=== PATIENT | male | born 1995 | race American Indian/Alaskan Native ===

== ENCOUNTER 2017-05-22 17:28 | Inpatient (IN) | payer OTHER ==
[~2017-05-22] VITALS: Ht 167.6 cm; Wt 65.3 kg
[~2017-05-22 17:28] MED LIST: ALBUTEROL SULF8.5 GM INH; ALBUTEROL2.5 MG/3 M INH; ALLEGRA ALLERG180 MG PO; ASMANEX220 MC1 IH; BACTRIM DS TAB1 EACH PO; BENADRYL25 MG PO; CALAMINE SUSPE177 ML TOP; CEPHALEXIN500 MG PO; DULERA 100 MCG/13 GM; DULERA 200 MCG/13 GM INH; FORADIL1 INHALATI INH; IBUPROFEN600 MG PO; IPRAT-ALBUT 0.5-3 ML INH; NICORETTE2 MG MM; NICOTINE PATCH1 EACH TD; NORCO 5-325 TA1 EACH PO; OMEPRAZOLE20 MG PO; PREDNISONE10 MG PO; PREDNISONE20 MG PO; PREDNISONE5 M1 PO; PRILOSEC20 MG PO; PROAIR HFA8.5 GM INH; PROVENTIL HFA6.7 GM INH; VENTOLIN5 MG/1 ML; ZIRGAN5 GM OPTH
--- NOTE | 2017-05-22 20:40 | NUR ---
PATIENT ARRIVES TO CCU AT 2039 ON ER STRETCHER. PT HAS LONG EXP PHASE, NOTED TO BE AROUND 3 SEC. PT ABLE TO MOVE SELF OVER TO BED. HEART RATE 80s, SINUS. BP 127/71 (84). SP02 95% ON ROOM AIR. PT STATES HE HAS BEEN SICK FOR A FEW DAYS. PATIENT ABLE TO HAVE SMALL CONVERSATION AND STATES MOSTLY "I'M JUST TIRED." PATIENT LETHARGIC AND NOT VERY INTERACTIVE. CONTINUE BRUNA ONITOR CLOSELY.
--- NOTE | 2017-05-22 21:43 | NUR ---
PATIENT HAS ATE A WHOLE SANDWICH BOX AND REQUESTING ANOTHER. PT ABLE TO TAKE ORAL MEDS WITHOUT DIFFICULTY. 2 GM IV MAG STARTED ON PATIENT. PT REC'D 1 L BOLUS OF NS. PT HAS VOIDED ONCE IN ER FOR 175 ML. PT IS 98% ON ROOM AIR. RR RANGING FROM 22-25 AT THIS TIME. PT TO WEAR BIPAP IS RR REMAINS IN HIGH 20s TO LOW 30s. EXP PHASE APPRO 2.5-3 SECONDS. EXP AND INSP WHEEZING HEARD THROUGHOUT. PT STATES HE IS VERY TIRED. PT NOW RECEIVING NS WITH 40 KCL AT 200 ML/HR FOR 1 L AT 200 ML/HR. PT'S NGUYEN LOCKED IN SAFE IN SECURITY ENVELOPE. CONTINUE TO MONITOR CLOSELY. CALL LIGHT WITHIN REACH.
--- NOTE | 2017-05-22 23:00 | NUR ---
PATIENT AWOKEN AT THIS TIME AND EVALUTED. PT NOTED TO HAVE RF 19-22 WITH A LONG EXP PHASE STILL. INSP AND EXP WHEEZES NOTED STILL. PATIENT AWAKENS AND REQUESTS A BREATHING TREATMENT. RT CALLED AND UPDATED AND WILL COME SEE PATIENT AND ADMINISTER BREATHING TREATMENT.
--- NOTE | 2017-05-23 01:30 | NUR ---
PATIENT AWOKEN TO TAKE POTASSIUM PILLS AT THIS TIME. PT STATES HE IS DOING WELL AND DENIES THE NEED FOR BREATHING TREATMENT AT THIS TIME. SP02 IS 97% ON ROOM AIR CURRENTLY. PT HAS ONLY VOIDED ONE TIME SINCE BEING ADMITTED TO THE CCU. IVF ARE INFUSING AT 75 ML/HR. CONTINUE TO MONITOR.
--- NOTE | 2017-05-23 03:19 | NUR ---
PATIENT NOTED TO BE ALARMING FOR TACH[place]A ON MONITOR, WITH RR AROUND 29-30. PT ASSESSSED AND NOTED TO BREATHING AROUND 25 BREATHS/MINUTE. PT AWOKEN AND ASKED IF HE FEELS LIKE HE NEEDS A BREATHING TREATMENT, TO WHICH HE RESPONDS YES. RT CALLED. LUNG SOUNDS REVEAL EXP WHEEZING AND INSP WHEEZING. RT IN ROOM AT THIS TIME NOW.
--- NOTE | 2017-05-23 05:55 | NUR ---
PATIENT USES CALL LIGHT AND REQUESTING ANOTHER SANDWICH BOX. PATIENT GIVEN CHOCOLATE PUDDING AT THIS TIME AND WAITING FOR SANDWICH FROM KITCHEN. PT NOW UP TO VOID IN URINAL. HEART RATE NOTED TO ELEVATE TO 110s WHILE UP. LAST BP 137/75 (87). PT HAS REMAINED ON ROOM AIR THROUGH THE NIGHT. CONTINUE TO MONITOR.
--- NOTE | 2017-05-23 07:44 | NUR ---
PT UP AMBULATING TO BATHROOM INDEPENDENTLY. PT ABLE TO HAVE LARGE BM, THEN BACK TO BED. LINENS CHANGED ON BED DUE TO FOOD CRUMBS. PT DENIES PAIN AND NAUSEA. PT C/O DIFFICULTY BREATHING STILL [employer]HOUGH HE JUST RECIEVED A NEB TREATMENT FROM [facility]. PT O2 SATS ARE 98% ON ROOM AIR. PT STATES "I FEEL SO MUCH BETTER THAN I DID LAST NIGHT, I THOUGHT I WAS GOING TO ".
--- NOTE | 2017-05-23 08:01 | NUR ---
PT BREAKFAST HAS ARRIVED. PT REQUESTING AN ADDITIONAL SODA AND A CUP OF COFFEE.
--- NOTE | 2017-05-23 09:32 | NUR ---
IN ROOM TO ASSESS PT. PT MOSTLY DROWSY AND NOT VERY COMMUNICATIVE, PT STATES "I'M JUST TIRED, I WANT TO SLEEP".
--- NOTE | 2017-05-23 09:45 | NUR ---
FLU VACCINATION GIVEN TO PT IN UPPER RT ARM. PT MARTHA WELL.
--- NOTE | 2017-05-23 10:30 | NUR ---
FULL REPORT GIVEN TO TIMOTHY GAMBLE, PT TO BE TRANSFERED TO ROOM 116 ON MED/SURG.
--- NOTE | 2017-05-23 11:21 | NUR ---
PT TRANSFERED FROM CCU IN BED. PT IS VERY DROWSY, BUT WILL WAKE TO VOICE AND TOUCH. PT STATED HE HAS NO PAIN AT THIS TIME, BUT IS "SO TIRED". WHEEZES IN ALL LOBES ON INHALATION AND EXPIRATION. PT COLORING IS NORMAL FOR SKINTONE, ON ROOM AIR, O2 SATS >95%. PT IS HOMELESS, STATES HE HAS A HARD TIME GETTING FOOD. ENCOURAGED HIM TO CALL DOWN AND ORDER LUNCH. HAS SNACKS AT BEDSIDE. BELONGINGS IN BAGS ON COUCH. SEVERE EXCEMA ALL OVER BODY. DISCUSSED PLAN OF CARE, SHOWER AFTER LUNCH AND THEN APPLY CREAM. PT IN AGREEMENT, COORDINATED WITH EMAIL CAMPAIGN SPECIALIST.
--- NOTE | 2017-05-23 15:02 | NUR ---
APPLICATION SECURITY ENGINEER REPORTED THAT PT BECAME SHORT OF BREATH WHEN WALKING TO THE BATHROOM. PT WAS ASSISTED TO A SAFE POSITION. RN CALLED RT FOR PRN NEB TREATMENT. PT WAS RETURNED TO BED, O2 ADMINISTERED AT 2L PER NC. RT ADMINSTERED PRN NEB TREATMENT. PT REPORTS STARTING TO FEEL BETTER.
--- NOTE | 2017-05-23 16:07 | NUR ---
PT WAS HAVING A HARD TIME BREATHING TOLD NURSE AGUIRRE. TOOK PT TO THE BATHROOM. THEN HE SAID HE NEEDED A BREATHING TREATMENT. HE SAID HE COULD NOT CATCH HIS BREATH. NURSE BAENA WAS IN THE MED ROOM ACROSS THE FERRO SO I ASKED HER TO COME TAKE A LOOK AT HIM. SHE THEN CALLED RESP[facility] THEY DID NOT ANSWER SO SHE WENT AND GOT PT A BREATHING TREATMENT. IS NOW RESTING IN BED
--- NOTE | 2017-05-23 17:38 | NUR ---
pt stated he wanted to keep his tray in his room. emptyed trach fresh ice water
--- NOTE | 2017-05-23 18:26 | NUR ---
PT TRANSFERED TO FLOOR FROM CCU. PT HAS BEEN VERY SLEEPY, BUT WAKES TO VOICE AND TOUCH. PT PREFERS TO HAVE FOOD LEFT AT BEDSIDE AND GRAZE ON IT OFTEN. PT IS HOMELESS AND STATES HE HAS DIFFICULTY OBTAINING FOOD, EATS WELL IN HOSPITAL. SOB ON EXERTION. PRN NEB X1, SCHEDULED NEBS Q4HR. INSPIRTORY AND EXPIRTORY WHEEZES. NO IV FLUIDS, IV SL. IV FLUSHES, BUT IS DIFFICULT.
--- NOTE | 2017-05-23 19:18 | NUR ---
RECIEVED REPORT FROM DAY SHIFT NURSE. PATIENT SLEEPING IN BED. CALL LIGHT IN REACH.
--- NOTE | 2017-05-23 21:32 | NUR ---
PT RESTING IN BED. VERY DROWSY BUT EASILY AROUSABLE. LOTION APPLIED TO FACE AND BACK. NASAL CANNULA IN PLACE. IV FELL OUT. JOSUE RN INSERTING IV AT THIS TIME. PT DENIES SOB. NO WHEEZES HEARD. PT DENIES NEEDS.
--- NOTE | 2017-05-23 21:53 | NUR ---
NEW IV STARTED. PATIENT TOLERATED WELL. PATIENT UP TO BEDSIDE TO USE URNAL. APPEARS STEADY ON HIS FEET. HE DENIES SOB. HE REQUESTED A SNACK PACK, FLOAT SLIP INJECTOR AND APPLICATOR CONTACTED TO RECIEVE ONE. PATIENT DENIES FURTHER NEEDS. 2L NC IN PLACE. CALL LIGHT IN REACH.
--- NOTE | 2017-05-23 22:25 | NUR ---
PATIENT SLEEPING. CALL LIGHT IN REACH. NC IN PLACE.
--- NOTE | 2017-05-23 23:49 | NUR ---
PT REQUESTS FOR BRIANNA TX. CALLED RT TO ADMINISTER. PT STATES HE FEELS SOB FROM SITTING UP IN BED TO USE THE URINAL. AUDIBLE WHEEZES HEARD. O2 AT 97% ON 2L OXYGEN VIA NC. PT DENIES FURTHER NEEDS. CALL LIGHT IN REACH.
--- NOTE | 2017-05-24 00:57 | NUR ---
PT SLEEPING IN BED. NASAL CANNULA IN PLACE. CALL LIGHT IN REACH.
--- NOTE | 2017-05-24 02:36 | NUR ---
PATIENT SLEEPING. NC IN PLACE, CALL LIGHT IN REACH.
--- NOTE | 2017-05-24 04:30 | NUR ---
PT SLEEPING. O2 IN PLACE, CALL LIGHT IN REACH.
--- NOTE | 2017-05-24 05:45 | NUR ---
PT RESTING IN BED. VOIDED WITH URINAL. 94% W/O O2. INSPIRATORY AND EXPIRATORY WHEEZES HEARD THROUGHOUT LUNG ISIDRO. CALLED RT TO ADMINISTER NEB TX. PT DENIES FURTHER NEEDS. SNACK DELIVERED.
--- NOTE | 2017-05-24 06:51 | NUR ---
PATIENT SLEEPING. RR 20. CALL ARTHUR IN REACH.
--- NOTE | 2017-05-24 07:30 | NUR ---
RECIEVED BEDSIDE REPORT FROM MAVIS REYES. PT SLEEPING, BREATHING EVEN AND UNLABORED. PT APPEARS COMFORTABLE. FOOD AT BEDSIDE. NO O2 AT THIS TIME. NO IV FLUIDS.
--- NOTE | 2017-05-24 08:13 | NUR ---
PT MORE AWAKE THIS MORNING. AGREES TO A SHOWER AFTER BREAKFAST. PT UP VOIDING INDEPENDENTLY. PT EATING WELL. REPORTS NO PAIN AT THIS TIME.
--- NOTE | 2017-05-24 08:52 | NUR ---
PLACED PT ON 4L O2 WHILE IN SHOWER. DECREASED TO 2L POST SHOWER WHILE SLEEPING. PT REQUESTED PRN NEB TREATMENT. PRE TREATMENT PT HAD WHEEZES THROUGHOUT, RR 24.
--- NOTE | 2017-05-24 10:53 | NUR ---
PT SLEEPING SOUNDLY, BREATHING EVEN AND UNLABORED. RR 20.
--- NOTE | 2017-05-24 14:53 | NUR ---
PT REPORTED TO SURVEY CAD TECHNICIAN THAT HE FELT LIKE THROWING UP. RN WENT TO CHECK ON HIM, HE HAD 100ML OF EMISIS. PT STATED THAT IT FELT LIKE TOO MUCH COLA AND HE FELT A LITTLE BETTER AFTER VOMITING. STILL REQUESTED ZOFRAN. PT REQUESTED NEB TREATMENT, ADVISED RT.
--- NOTE | 2017-05-24 16:03 | NUR ---
PATIENT GOT HIS SHOWER THIS MORNING HE NEEDED HELP. WASHED HIS HAIR ALSO. GOT HIM A COUPLE OF WARM BLANKETS. COUPLE OF SODAS. HE SAID THANK YOU.
--- NOTE | 2017-05-24 18:48 | NUR ---
PT MORE AWAKE THIS SHIFT. UP TO SHOWER WITH ASSIST, CREAM APPLIED. PT NEEDED SEVERAL PRN BREATHING TREATMENTS. SCHEDULED BREATHING TREATMENTS. PT HAD EMISIS X1 D/T TOO MUCH COLA. PRN ZOFRAN EFFECTIVE. VOIDING WELL. IV SL. PT IS HOMELESS, HOARDS FOOD. MED CHANGES.
--- NOTE | 2017-05-24 19:43 | NUR ---
RECIEVED REPORT FROM DAY SHIFT NURSE. PATIENT RESTING IN BED. USED URINAL AT BEDSIDE. VOIDING CLEAR/YELLOW URINE. MEAL TRAY AT BEDSIDE. PATIENT DENIES NEEDS. CALL LIGHT IN REACH.
[2017-05-24] MEDS ORDERED: NICORETTE4 M2 BUCCAL (20:20)
[2017-05-24] MEDS ORDERED: PREDNISONE20 MG PO (20:20)
[2017-05-24] MEDS ORDERED: SYMBICORT 16010.2 GM INH (20:20)
[2017-05-24] MEDS ORDERED: ALBUTEROL2.5 MG/3 M INH (20:20)
--- NOTE | 2017-05-24 20:48 | NUR ---
PATIENT RESTING WITH EYES CLOSED IN BED. PATIENT IS ON ROOM AIR. NO RESPIRATORY DISTRESS NOTED. EXPIRATORY WHEEZES THROUGHOUT LUNG ISIDRO. HR REGULAR. BS ACTIVE. NO C/O PAIN OR NAUSEA. REMOVED MEAL TRAY. LOVENOX REFUSED. DENIES NEEDS. CALL LIGHT IN REACH.
--- NOTE | 2017-05-24 22:30 | NUR ---
PATIENT SLEEPING. CALLED ES TO CLEAN FLOOR IN ROOM. CALL LIGHT IN REACH.
--- NOTE | 2017-05-25 00:32 | NUR ---
PATIENT SLEEPING AT THIS TIME. EMPTIED URINAL. REFILLED WATER PITCHER. CALL LIGHT IN REACH.
--- NOTE | 2017-05-25 01:52 | NUR ---
PATIENT USES URINAL.
--- NOTE | 2017-05-25 02:30 | NUR ---
PATIENT RESTING IN BED. HE ASKED ME TO "SHUSH." INSPIRATORY AND EXPIRATORY WHEEZES HEARD THROUGHOUT LUNG ISIDRO. PT DENIES NEED FOR NEB TX. CALL LIGHT IN REACH.
--- NOTE | 2017-05-25 04:18 | NUR ---
PATIENT RESTING WITH EYES CLOSED IN BED. EMPTIED URINAL. PATIENT REFUSED SCHEDULED NEB TX AGAIN. DENIES NEEDS. CALL ARTHUR IN REACH.
--- NOTE | 2017-05-25 05:50 | NUR ---
PATIENT SLEPT ALL NIGHT. HE HAS BEEN REFUSING NEB TX. VOIDING WELL. VS STABLE. D/C TODAY.
--- NOTE | 2017-05-25 09:56 | NUR ---
PT UP AMBULATING HALLS ALL MORNING. TOOK AM MEDS SCHEDULED. PT REPORTS EXCITEMENT TO GO HOME. DANCING IN ROOM. PT TAKEN OUT TO LOBBY TO WAIT FOR TAXI BY YOJANA REDD. WILL RETREIVE LOCK BOXED ITEMS BEFORE LEAVING HOSPITAL. TAXI CARE RIDE HOME.
--- NOTE | 2017-05-25 11:44 | NUR ---
PT WALKING IN HALLS-ALMOST RUNNING. SAID HE WAS FEELING SO MUCH BETTER, IS TO BE DC'D LATER THIS MORNING. EXTENDED A BLESSING-HE THANKED ME AND SHOOK MY HAND.
== END 2017-05-25 09:55 | disposition home or self-care (01) | DRG 203 ==
LOC: ED 17:28 → CCU 20:06 → MS 05-23 10:55
PROVIDERS: ADMIT Internal Medicine
DX: J45.51 Severe persistent asthma with (acute) exacerbation (principal); Z59.0 Homelessness; Z91.19 Patient's noncompliance with other medical treatment and regimen; F15.11 Other stimulant abuse, in remission; L20.9 Atopic dermatitis, unspecified
CPT/HCPCS: 36600; 71010; 80053; 82803; 83735; 85025; 90674; 94640; 94644; 94660; 94760; 96361; 96374; 99285; 99407; G0008; J1650; J2405; J2930; J3475; J7030; J7120; J7512

== ENCOUNTER 2017-10-24 11:34 | Inpatient (IN) | payer OTHER ==
[~2017-10-24] VITALS: Ht 167.6 cm; Wt 67.6 kg
[~2017-10-24 11:34] MED LIST changes: +NICORETTE4 M2 BUCCAL; +SYMBICORT 16010.2 GM INH
--- OUTSIDE RECORDS SUMMARY | 2017-10-24 14:12 | XMS | Clinical Summary ---
Demographics + + + | Address | [address] | | | [place] [address] | + + + | Home Phone | | + + + | Preferred Language | Unknown | + + + | Marital Status | Single | + + + | Taoist Affiliation | NON | + + + | Race | or | + + + | Ethnic Group | Not or | + + + Author + + + | Author | [facility] | + + + | Organization | [facility] | + + + | Address | Unknown | + + + | Phone | Unavailable | + + + Support + + +---------+ + | Name | Relationship | Address | Phone | + + +---------+ + | Wilmer Stanley | [place] | [place] | | | | | Unknown | | + + +---------+ + Care Team Providers + +------+ + | Care Enterprise Application Architect Name | Role | Phone | + +------+ + | Patsy Moore ANESTHESIOLOGY FELLOW | PP | Unavailable | + +------+ + Source Comments MARC is fully live on both [facility] Amb[facility] and [facility] InPatient.[facility] Allergies No Known Allergies Current Medications + + + +---------+------+------+-------+ | Prescription | Sig. | Disp. | Refills | Star | End | Statu | | | | | | t | Date | s | | | | | | Date | | | + + + +---------+------+------+-------+ | hydrOXYzine | Take 1 Cap by mouth | 40 Cap | 1 | 03/2 | | Activ | | pamoate 50 mg Oral | every eight hours as | | | 1/20 | | e | | Capsule | needed for itching. | | | 10 | | | + + + +---------+------+------+-------+ | ibuprofen 600 mg | Take 1 Tab by mouth | 50 Tab | 0 | 03/2 | | Activ | | Oral Tablet | every six hours as | | | 1/20 | | e | | | needed for moderate | | | 10 | | | | | pain. | | | | | | + + + +---------+------+------+-------+ | white petrolatum | by Topical route | 454 g | 3 | 03/2 | | Activ | | Topical Gel | every eight hours as | | | 1/20 | | e | | | needed. please use | | | 10 | | | | | on affected skin | | | | | | | | between applications | | | | | | | | of triamcinolone | | | | | | | | ointment (don't | | | | | | | | apply at the same | | | | | | | | time) | | | | | | + + + +---------+------+------+-------+ | albuterol 90 | Inhale 4-6 Puffs | 1 | 3 | 03/2 | | Activ | | mcg/Actuation | every four hours as | Inhaler | | 2/20 | | e | | Inhalation HFA | needed for | | | 10 | | | | Aerosol Inhaler | dyspnea/SOB. | | | | | | + + + +---------+------+------+-------+ | triamcinolone | by Topical route. | 454 g | 3 | 03/3 | | Activ | | acetonide 0.1 % | Apply thin film to | | | 120 | | e | | Topical | affected areas to | | | 10 | | | | CreamIndications: | skin Qam for up to 2 | | | | | | | Atopic dermatitis | weeks during a | | | | | | | | flare (please use | | | | | | | | triamcinolone | | | | | | | | ointment at night) | | | | | | + + + +---------+------+------+-------+ | hydrOXYzine 25 mg | Take 1 Tab by mouth. | 60 Tab | 12 | 04/2 | | Activ | | Oral Tablet | 1-2 tabs at bedtime | | | 8/20 | | e | | | as needed for | | | 10 | | | | | itching | | | | | | + + + +---------+------+------+-------+ | triamcinolone | by Topical route two | 454 g | 0 | 04/2 | | Activ | | acetonide 0.1 % | times daily. apply | | | 8/20 | | e | | Topical Ointment | thin film to | | | 10 | | | | | affected areas twice | | | | | | | | daily | | | | | | + + + +---------+------+------+-------+ | oxycodone, | Take 1 Tab by mouth | 5 Tab | 0 | 06 | | Activ | | immediate release, 5 | every six hours as | | | 8/20 | | e | | mg Oral Tablet | needed for severe | | | 10 | | | | | pain. | | | | | | + + + +---------+------+------+-------+ Active Problems + + + | Problem | Noted Date | + + + | Erythroderma | 09/05/2009 | + + + | Depression | 09/05/2009 | + + + | Atopic dermatitis | 11/09/2008 | + + + Social History + +-------+ +--------+------+ | Tobacco Use | Types | Packs/Day | Years | Date | | | | | Used | | + +-------+ +--------+------+ | Never Assessed | | | | | + +-------+ +--------+------+ + + + | Sex Assigned at | Date Recorded | | | | + + + | Not on file | | + + + Last Filed Vital Signs + + + + | Vital Sign | Reading | Time Taken | + + + + | Blood Pressure | 125/61 | 09/09/2009 10:00 AM PDT | + + + + | Pulse | 124 | 09/09/2009 10:00 AM PDT | + + + + | Temperature | 36.8 C (98.2 F) | 09/09/2009 8:18 AM PDT | + + + + | Respiratory Rate | 18 | 09/09/2009 10:00 AM PDT | + + + + | Oxygen Saturation | 97% | 09/09/2009 10:00 AM PDT | + + + + | Inhaled Oxygen | - | - | | Concentration | | | + + + + | Weight | 77.4 kg (170 lb 11.2 | 10/16/2009 1:09 PM PDT | | | oz) | | + + + + | Height | 167.6 cm (5' 6") | 10/16/2009 1:09 PM PDT | + + + + | Body Mass Index | 27.55 | 10/16/2009 1:09 PM PDT | + + + + Plan of Treatment + + + + + | Health Maintenance | Due Date | Last Done | Comments | + + + + + | INFLUENZA VACCINE | | | | | (FLU SHOT) | 8 | | | + + + + + Results Not on filefrom Last 3 Months
--- OUTSIDE RECORDS SUMMARY | 2017-10-24 14:12 | XMS | Clinical Summary ---
Demographics + + + | Address | [address] | | | [place] [address] | + + + | Home Phone | | + + + | Preferred Language | Unknown | + + + | Marital Status | Single | + + + | Roman Catholic Affiliation | Unknown | + + + | Race | Unknown | + + + | Ethnic Group | Unknown | + + + Author + + + | Author | [email or web address] | + + + | Organization | [facility] | + + + | Address | Unknown | + + + | Phone | Unavailable | + + + Support + + +---------+ + | Name | Relationship | Address | Phone | + + +---------+ + | Wilmer Stanley | ECON | Unknown | | + + +---------+ + Care Team Providers + +------+ + | Care Yarn Texture Machine Operator Name | Role | Phone | + +------+ + | Patsy Moore Natalee DRAFTER CHIEF DESIGN | PP | | + +------+ + Allergies No Known Allergies Current Medications + + + +---------+------+------+-------+ | Prescription | Sig. | Disp. | Refills | Star | End | Statu | | | | | | t | Date | s | | | | | | Date | | | + + + +---------+------+------+-------+ | ALBUTEROL SULFATE | Inhale into the | | | | | Activ | | IN | lungs. | | | | | e | + + + +---------+------+------+-------+ | predniSONE | Take 4 tablets for 3 | 40 | 0 | 03/2 | | Activ | | (DELTASONE) 10 MG | days, then take 3 | tablet | | 8/20 | | e | | tablet | tablets for 3 days, | | | 13 | | | | | then take 2 tablets | | | | | | | | for 3 days, then | | | | | | | | take 1 tablet for 3 | | | | | | | | days and then 1/2 | | | | | | | | tablet for 7 days | | | | | | | | and stop. | | | | | | + + + +---------+------+------+-------+ | | Inhale 1 puff into | 60 each | 0 | 03/2 | | Activ | | fluticasone-salmeter | the lungs 2 (two) | | | 7/20 | | e | | ol (ADVAIR) 100-50 | times daily. | | | 13 | | | | MCG/DOSE AEPB | | | | | | | + + + +---------+------+------+-------+ Active Problems + + + | Problem | Noted Date | + + + | Asthma with status asthmaticus | 09/11/2012 | + + + | Acute respiratory failure (HCC) | 09/11/2012 | + + + | Acidosis, metabolic, with respiratory acidosis | 09/11/2012 | + + + | Personal history of tobacco use, presenting hazards to health | 09/11/2012 | + + + | Eczema | 09/11/2012 | + + + | Hypotension, unspecified | 09/11/2012 | + + + Immunizations + + + + | Name | Dates Previously Given | Next Due | + + + + | Influenza Split | 09/12/2012 | | + + + + | Pneumococcal | 09/12/2012 | | | Polysaccharide | | | | 23-valent | | | + + + + Social History + +-------+ +--------+------+ | Tobacco Use | Types | Packs/Day | Years | Date | | | | | Used | | + +-------+ +--------+------+ | Current Every Day | | | | | | Smoker | | | | | + +-------+ +--------+------+ + + +---------+ + | Alcohol Use | Drinks/We | oz/Week | Comments | | | ek | | | + + +---------+ + | No | | | | + + +---------+ + + + + | Sex Assigned at | Date Recorded | | | | + + + | Not on file | | + + + Last Filed Vital Signs + + + + | Vital Sign | Reading | Time Taken | + + + + | Blood Pressure | 122/57 | 09/14/2012 8:16 AM PDT | + + + + | Pulse | 75 | 09/14/2012 8:16 AM PDT | + + + + | Temperature | 36.8 C (98.2 F) | 09/14/2012 8:16 AM PDT | + + + + | Respiratory Rate | 14 | 09/14/2012 8:16 AM PDT | + + + + | Oxygen Saturation | 95% | 09/14/2012 8:16 AM PDT | + + + + | Inhaled Oxygen | - | - | | Concentration | | | + + + + | Weight | 63.8 kg (140 lb 10.5 | 09/14/2012 4:04 AM PDT | | | oz) | | + + + + | Height | 167.6 cm (5' 6") | 09/11/2012 2:40 PM PDT | + + + + | Body Mass Index | 22.7 | 09/14/2012 4:04 AM PDT | + + + + Plan of Treatment Not on file Results Not on filefrom Last 3 Months Insurance + +--------+ +------+-------+---------+ | Payer | Benefi | Subscriber | Type | Phone | Address | | | t Plan | ID | | | | | | / | | | | | | | Group | | | | | + +--------+ +------+-------+---------+ | [facility] | YELLOW | xxxxxxxxx | | | | | PLANS | [place] | | | | | + +--------+ +------+-------+---------+ + +--------+ +--------+ + + | Guarantor Name | Accoun | Relation to | Date | Phone | Billing Address | | | t Type | Patient | of | | | | | | | | | | + +--------+ +--------+ + + | MEGA PIPER | Person | Self [birth year] | Home: | [address] | | [place] | [place] | | 1994 | [phone] | [place] | | | [place] | | [phone] | + +--------+ +--------+ + +
--- OUTSIDE RECORDS SUMMARY | 2017-10-24 14:12 | XMS | Clinical Summary ---
Demographics + + + | Address | [address] | | | [place] [address] | + + + | Home Phone | | + + + | Preferred Language | Unknown | + + + | Marital Status | Single | + + + | Confucianism Affiliation | Unknown | + + + | Race | Unknown | + + + | Ethnic Group | Unknown | + + + Author + + + | Author | [email or web address] | + + + | Organization | [facility] | + + + | Address | Unknown | + + + | Phone | Unavailable | + + + Support + + +---------+ + | Name | Relationship | Address | Phone | + + +---------+ + | Wilmer Stanley | ECON | Unknown | | + + +---------+ + Care Team Providers + +------+ + | Care It Applications Developer Name | Role | Phone | + +------+ + | Patsy Moore Natalee PAPER WOOD CUTTER | PP | | + +------+ + [...] | | | + +--------+ +------+-------+---------+ | [facility] | YELLOW | [phone] | | [...] A | al/[place] | | 1994 | [phone] | [place] | | | [place] | | | [phone] | + +--------+ +--------+ + +
--- OUTSIDE RECORDS SUMMARY | 2017-10-24 14:12 | XMS | Clinical Summary ---
Demographics + + + | Address | [address] | | | [place] [address] | + + + | Home Phone | | + + + | Preferred Language | Unknown | + + + | Marital Status | Single | + + + | Baptism Affiliation | NON | + + + [...] Team Providers + +------+ + | Care Board Mill Supervisor Name | Role | Phone | + +------+ + | Patsy Moore HADOOP ADMIN | PP | Unavailable | + +------+ + Source Comments MARC is fully live on both [facility] Ambulatory and [facility] InPatient.[facility] Allergies No Known Allergies Current Medications + [...]
--- NOTE | 2017-10-24 15:55 | NUR ---
PT HERE FROM ER, PT ABLE TO SCOOT FROM GURNEY TO BED WITH OUT ASSISTANCE. PT WOB INCREASED SEVERLY WITH MOVEMENT. PT PLACED ON 3L VIA OXYMASK FOR AIR HUNGER.
--- NOTE | 2017-10-24 16:30 | NUR ---
PT AWAKE AND ALERT X4, HYPERTALKATIVE. PT POLITE AND COOPERTIVE. PT VITALS WNL AT THIS TIME. IV SITE INTACT, NO REDNESS OR SWELLING NOTED, PT DENIES PAIN WITH FLUID INFUSION. PT DENIES PAIN, NAUSEA, AND SOB AT THIS TIME. PT HAS FAN IN THE ROOM GOING FOR AIR MOVEMENT, PT STATES IT HELPS HIM TO NOT FEEL AIR HUNGERY.
--- NOTE | 2017-10-24 18:49 | NUR ---
SKIN CARE DONE FOR PT, WIPE DOWN SKIN WITH BATH WIPES, CALIMINE AND BARRIER CREAM APPLIED ON TORSO, BILAT ARMS, BILAT LEGS, NECK, AND LOTION TO FACE. PT STATES "I FEEL SO MUCH MORE COMFORTABLE". PT MARTHA 100% OF DINNER AND SNACKS. PT HAS GOOD PO FLUID INTAKE. PT COOPERATIVE AND POLITE, COMMUNICATES GRATITUDE FOR ALL CARES PROVIDED.
--- NOTE | 2017-10-24 19:19 | NUR ---
PT REQUESTING A BREATHING TREATMENT, [facility] THERAPY CALLED.
--- NOTE | 2017-10-24 19:30 | NUR ---
PT RESTING IN BED. VISITORS AT BEDSIDE. SHIFT REPORT RECEIVED FROM DAY SHIFT RN. PT REMAINS ON RA WITH SPO2 96%. PT CALLS APPROPRIATELY. WILL CONTINUE TO CLOSELY MONITOR.
--- NOTE | 2017-10-24 20:45 | NUR ---
PT RESTING IN BED. PT DEDE ANY NEEDS AT THSI TIME. WILL CONTINUE TO CLOSELY MONITOR.
--- NOTE | 2017-10-24 21:30 | NUR ---
PT SLEEPING HARD WHEN THIS RN AND RT ENTERED THE ROOM. PT TOOK A FEW MINUTES TO FULLY WAKE UP. PT STATES "I FEEL BETTER THAN WHEN I FIRST CAME IN". PT ASSESSMENT COMPLETED. PT BREATH SOUNDS HAVE NOTED INS. AND EXP. WHEEZE PRESENT AND TIGHT IN BASES. SPO2 96% ON RA. RR- 20. BOWEL TONES ACTIVE. PT HAS A GOOD APPETITE AND ASKING FOR A SANDWICH BOX. RT WORKING WITH PT. PT DENIES ANY OTHER NEEDS AT THIS TIME. WILL CONTINUE TO CLOSELY MONITOR.
--- NOTE | 2017-10-24 22:15 | NUR ---
PT CALLED TO GET UP TO USE URINAL. PT ATE PART OF SANDWICH BOX. NO OTHER ISSUES AT THIS TIME. WILL CONTINUE TO CLOSELY MONITOR.
--- NOTE | 2017-10-25 00:15 | NUR ---
ENTERED FROM WITH RT. PT RESTING IN BED. PT WANTED TO DO NEB TREATMENT. 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 PT DENIES ANY NEEDS AT THIS TIME. PT ASSESSMENT UNCHANGED FROM PREVIOUS ASSESSMENT. WILL CONTINUE TO CLOSELY MONITOR. NO OTHER ISSUES NOTED AT THIS TIME.
--- NOTE | 2017-10-25 01:49 | NUR ---
PATIENT CALLED REQUESTING ANOTHER SANDWICH BOX. PT STATES HE IS JUST HUNGARY AND HAS NOT HAD THE OPPORTUNITY TO EAT MUCH THE LAST FEW DAY. PT DNEIES ANY OTHER NEEDS AT THIS TIME. WILL CONTINUE TO CLOSELY MONITOR.
--- NOTE | 2017-10-25 04:00 | NUR ---
PT RESTING IN BED. THIS RN AND RT IN TO SEE PT. PT COMPLETED NEB. PT BREATH SOUNDS CONTINUE TO HAVE WHEEZING THROUGHOUT. PT DENIES ANY NEEDS AT THIS TIME. WILL CONTINUE TO CLOSELY MONITOR.
--- NOTE | 2017-10-25 06:00 | NUR ---
PT UP TO BEDSIDE TO USE URINAL. PT TOLERATED WELL. PT DENIES ANY OTHER NEEDS AT THIS TIME. WILL CONTINUE TO CLSOELY MONIOR.
--- NOTE | 2017-10-25 08:57 | NUR ---
PT RESTING IN BED. LR RUNNING AT 100 ML/HR. DUO NEB TREATMENT GIVEN THIS MORNING BY RT, SPO2 97% ON ROOM AIR. BREAKFAST AT BEDSIDE.
--- NOTE | 2017-10-25 09:29 | NUR ---
DR. BUSTOS AT BEDSIDE ASSESSING PT AND UPDATING PLAN OF CARE.
--- NOTE | 2017-10-25 11:02 | NUR ---
PT RESTING COMFORTABLY IN BED AT THIS TIME. SPO2 94% ON ROOM AIR. PT IS SALINE LOCKED AT THIS TIME.
--- NOTE | 2017-10-25 11:47 | NUR ---
RECIEVED TELEPHONE REPORT FROM MAVIS HIDALGO.
--- NOTE | 2017-10-25 11:50 | NUR ---
PT ARRIVED TO ROOM 119 AT THIS TIME. PT DROWSY, ALERT TO NAME. FOLLOWS DIRECTION CORRECTLY. V/S STABLE.
--- NOTE | 2017-10-25 12:04 | NUR ---
PT TO FLOOR, TO ROOM 119 FROM CCU AT 1150 VIA BED. PT DROWSY, SLOW TO RESPOND. ORIENTED TO SELF, TO PLACE, EVENTS, WHO THE PRESIDENT IS, AND TO YEAR, DISORIENTED TO MONTH AND DAY. PT DENIED PAIN. C/O FEELING SHORT OF BREATH, ACCESSORY MUSCULES IN USE, PT'S WORK OF BREATHING APPEARS INCREASED. RESPIRATORY RATE 22, OXYGEN SATURATION LEVEL 90% ON RA. PT ON A CONTINOUS PULSE OX. CALLED MILAD RT, REQUESTED THAT SHE COME TO SEE PT. MILAD AGREED TO COME TO SEE PT. PT PROVIDED WITH FRESH ICE WATER. PT ATE A HARDBOILED EGG. PROVIDED PT WITH ASPIRATION PRECAUTION EDUCATION. PT VERBALIZED UNDERSTANDING. ENCOUARGED PT TO SLOW DOWN WHEN EATING, AND PT AGREED. LUNGS HAVE EXPIRATORY WHEEZES NOTED THROUGHOUT ALL LUNG ISIDRO. OXYGEN SATURATION LEVEL IS NOW AT 93% ON RA. PERSONAL SUPPLIES AND CALL LIGHT IN REACH.
--- NOTE | 2017-10-25 13:08 | NUR ---
PT IN BED RESTING WITH EYES CLOSED. RESPIRATORY RATE 22 BPM. ACCESSORY MUSCLES IN USE, LESS SO THAN EARLIER. CONTINUOUS PULSE OX ON, OXYGEN SATURATION LEVEL 92%. PERSONAL SUPPLIES AND CALL LIGHT IN REACH.
--- NOTE | 2017-10-25 13:41 | NUR ---
MAVIS FERNANDEZ MENTIONED THAT PT MIGHT BE ASLEEP. I CHECKED, HE WAS AND DIDNOT TRY TO WAKE HIM. WILL FOLLOW AGAIN LATER.
--- NOTE | 2017-10-25 14:26 | NUR ---
PATIENT SITTING AT EDGE OF BED EATING LUNCH. LINENS CHANGED BY THIS BEVERAGE SERVER. CALL BUTTON IN REACH. PATIENT SAID "THANKS FOR TAKING CARE OF ME." NO OTHER NEEDS AT THIS TIME.
--- NOTE | 2017-10-25 15:35 | NUR ---
PT WE WERE TALKING ABOUT THINGS GOING ON IN HIS LIFE DID STATE TO ME THAT HE WANTS TO , "JUST KILL ME" HE STATES, "WITH ALL MY PROBLEMS THAT WOULD JUST BE EASIER." "WITH ALL MY ISSUES, I JUST WANT IT TO BE OVER, I CAN'T WORK BECAUSE I HAVE BREATHING ISSUES AND HAVE TO BE IN THE HOSPITAL A WEEK AT A TIME AND WHO WANTS SOMEONE THAT DOES THAT." " I CAN'T DO ANYTHING" OFFERED HIM ASSISTANCE WITH CHW AND THAT SEEMED TO PERK HIM UP SOMEWHAT.
--- NOTE | 2017-10-25 16:46 | NUR ---
PT IN BED, RESTING QUIETLY WITH EYES CLOSED. ATE 100% OF DINNER. DENIED NEEDS. RESPIRATORY RATE 24, OXYGEN SATURATION LEVEL 92% ON RA. PT DENIED PAIN. PERSONAL SUPPLIES AND CALL BUTTON IN REACH.
--- NOTE | 2017-10-25 17:21 | NUR ---
WENT TO PT'S ROOM TO GIVE LOVENOX INJECTION ORDERED. PT REFUSED, STATED "I DON'T WANT THAT". PROVIDED EDUCATION REGARDING BENEFIT OF MEDICATION, AND WHY IT WAS ORDERED. PT RETURN VERBALIZED INFORMATION, BUT STILL REFUSED. EDUCATED PT THAT HE IS AT A HIGHER RISK OF BLOOD CLOT FORMATION DUE TO VERY LIMITTED ACTIVITY, PT VERBALIZED UNDERSTANDING.
[2017-10-25] MEDS ORDERED: CLARITIN10 MG PO (17:36)
[2017-10-25] MEDS ORDERED: IPRATROPIU0.2 MG/1 M INH (17:36)
--- NOTE | 2017-10-25 18:45 | NUR ---
ORDERED PT 4 SNACK PACKS OF THE MIDDLE OF THE NIGHT. VITALS AND I AND O DONE. PICKED UP ROOM EMPTYED GARBAGE
--- NOTE | 2017-10-25 18:50 | NUR ---
PT IN BED, RECIEVING NEBULIZER TX. PT DENIED NEEDS. PERSONAL SUPPLIES AND CALL LIGHT IN REACH.
--- NOTE | 2017-10-25 19:10 | NUR ---
REPORT RECEIVED FROM DAY SHIFT NURSE. PATIENT RESTING IN BED WITH EYES CLOSED. PATIENT PULSE OXYGEN READING WNL. CALL LIGHT WITHIN REACH.
--- NOTE | 2017-10-25 21:20 | NUR ---
PATIENT RESTING IN BED WITH EYES CLOSED. PATIENT DENIES PAIN. ASSESSMENT COMPLETED. I&Os RECORDED. MEDICATIONS GIVEN PER ORDER. PATIENT OXYGEN SATURATION 91 ON RA. RR 22, ACCESSORY MUSCLES USED. PATIENT APPEARS COMFORTABLE. PATIENT EDUCATED TO USE CALL LIGHT. CALL LIGHT WITHIN REACH. PATIENT DENIES ANY OTHER NEEDS AT THIS TIME.
--- NOTE | 2017-10-25 22:55 | NUR ---
PATIENT RESTING IN BED WITH EYES CLOSED. PATIENT RR 20, OXYGEN SATURATION 93 ON RA, AND HEART RATE 82. CALL LIGHT WITHIN REACH.
--- NOTE | 2017-10-25 23:20 | NUR ---
PATIENT CALLED NURSES STATION REQUESTING A SNACK. SNACK GIVEN. PATIENT VOIDED IN URINAL. PATIENT DENIES PAIN. OXYGEN SATURATION 94 ON RA. PATIENT DENIES ANY OTHER NEEDS AT THIS TIME. CALL LIGHT WITHIN REACH.
--- NOTE | 2017-10-26 01:50 | NUR ---
PATIENT RESTING IN BED WITH EYES CLOSED. PATIENT ATE 100% SNACK. ASSESSMENT COMPLETED. PATIENT OXYGEN SATURATION 93 ON RA. RR 22. HEART RATE 83. CALL LIGHT WITHIN REACH. PATIENT DENIES PAIN.
--- NOTE | 2017-10-26 04:42 | NUR ---
PATIENT RESTED WELL THOUGHTOUT THE NIGHT. PATIENT DROWSY. PATIENT RECEIVED SNACK X2. PATIENT ON RA. CONTINUOUS PULSE OX. SBA WHEN AMBULATING, PATIENT HAS NOT BEEN OUT OF BED THIS SHIFT. PATIENTS IV IS SL IN RIGHT AC. PATIENT RECEIVED SCHEDULED NEB TREATMENTS. REGULAR DIET. URINAL AT BEDSIDE. PATIENT OUTPUT QS. PATIENT DENIED PAIN. NO SOB NOTED.
--- NOTE | 2017-10-26 05:16 | NUR ---
PATIENT RESTING IN BED WITH EYES CLOSED. ASSESSMENT COMPLETED. PATIENT DENIES PAIN. MEDICATIONS GIVEN PER ORDER. PATIENT OXYGEN SATURATION 90 ON RA, RR 19. I&OS AND VITAL SIGNS RECORDED. PATIENT DENIES ANY NEEDS. CALL LIGHT WITHIN REACH.
--- NOTE | 2017-10-26 07:03 | NUR ---
PT IN BED, SLEEPING SOUNDLY. PERSONAL SUPPLIES AND CALL LIGHT IN REACH. RECIEVED BEDSIDE REPORT FROM MAVIS MADSEN AND AUGUSTIN, STUDENT NURSE.
--- NOTE | 2017-10-26 08:27 | NUR ---
PATIENT RELAXING IN BED. CALL LIGHT WITHIN REACH. NO OTHER NEEDS AT THIS TIME.
--- NOTE | 2017-10-26 08:28 | NUR ---
PT IN BED, AWAKE, SOMEWHAT DROWSY, ORIENTED X 4. ALTHOUGH DROWSY, PT IS MORE ALERT THAN YESTERDAY. PT RECIEVING NEBULIZER TX. REPORTED THAT HE HAD GOTTEN UP TO THE BATHROOM AND HAD A SMALL BM INDEPENDANTLY, AND THAT THIS ACTIVITY CAUSED AND "ASTHMA ATTACK". PROVIDED PT EDUCATION ON FALL PREVENTION, NEED TO CALL FOR ASSISTANCE PRIOR TO ANY TRANSFERS, AND NOT TO GET UP OUT OF BED WITHOUT HAVING A NURSING STAFF AT HIS SIDE. PT VERBALIZED UNDERSTANDING. PT DENIED PAIN, DENIED NAUSEA. PT IS ON RA, OXYGEN SATURAION LEVEL 93%. MILAD, RT AT BEDSIDE.
--- NOTE | 2017-10-26 09:41 | NUR ---
TALKED WITH DR WHITTEN REGARDING STATEMENT PT MADE YESTERDAY AFTERNOON. [facility] CONSULT ORDERED. I CALLED AND SP0KE WITH PILY AND SHE WILL COME SEE PT THIS AM.
--- NOTE | 2017-10-26 09:54 | NUR ---
PATIENT RELAXING IN BED. CALL LIGHT WITHIN REACH. NO OTHER NEEDS AT THIS TIME.
--- NOTE | 2017-10-26 10:30 | NUR ---
[employer] STAFF IN WITH PT AT THIS TIME. PT LAYING IN BED, TALKING WITH [employer] STAFF.
--- NOTE | 2017-10-26 10:35 | NUR ---
PILY, MENTAL HEALTH SPECIALIST [address] WHITTEN AND THIS RN. PILY STATED "MEGA IS NOT SUICIDAL". STATED THAT PT HAD REPORTED TO HER THAT HE IS AFRAID THAT HE WILL NEED TO COME DIRECTLY BACK TO THE EMERGENCY DEPARTMENT IF HE DISCHARGES TODAY.
--- NOTE | 2017-10-26 10:53 | NUR ---
PT AMBULATING IN HALLS WITH MILAD RESPIRATORY THERAPIST. PT'S OXYGEN SATURATION LEVEL WAS 92% ON RA WHEN PT AND MILAD PASSED NURSES' STATION. PT AMBULATING WELL WITH STANDBY ASSIST. HAS AMBULATED AROUND LOOP X 3 THUS FAR.
--- NOTE | 2017-10-26 12:11 | NUR ---
PT UP TO BATHROOM WITH YOJANA BEGUM. PT IS GOING TO SHOWER WITH STANDBY TO 1 PERSON ASSISTANCE FROM YOJANA BEGUM NEEDED. OXYGEN SATURATION LEVEL 94% ON RA.
--- NOTE | 2017-10-26 12:31 | NUR ---
PT SHOWERED AND BRUSHED HIS TEETH. ASSISTED TO PUT ON LOTION PER YOJANA BEGUM REPORT. PT NOW BACK IN BED, EATING LUNCH. PERSONAL SUPPLIES AND CALL LIGHT IN REACH.
[2017-10-26] MEDS ORDERED: CALAMINE SUSPE177 ML TOP (12:32)
[2017-10-26] MEDS ORDERED: PREDNISONE10 MG PO (12:34)
--- NOTE | 2017-10-26 13:07 | NUR ---
PT OFFERED [place] [facility] TO CALL, PT STATED THAT HE DID NOT WANT TO BE CALLED BY THE [place] QUIT LINE, BUT DID ACCEPT PRINTED SMOKING CESSATION INFORMATION FROM RT. DORIAN STINSON, CASE MANAGEMENT IN TO DISCUSS PT'S PLANS FOR DISHCARGE.
--- NOTE | 2017-10-26 13:23 | NUR ---
PT GIVEN DISCHARGE INSTRUCTIONS AND EDUCATION. PT STATED THAT HE DOES NOT HAVE ANY OF HIS HOME MEDICATIONS, AND DOES NOT HAVE A NEBULIZER, AND REQUESTED THAT THESE BE ORDERED. THIS RN STATED THAT SHE WOULD RELAY PT'S REQUEST TO DR. WHITTEN. PT VERBALIZED UNDERSTANDING OF INSTRUCTIONS AND EDUCATION. QUESTIONS ASKED AND ANSWERED. DID REPEAT BACK EDUCATION, PT REPEATED BACK ACCURATELY.
--- NOTE | 2017-10-26 13:31 | NUR ---
RELAYED PT'S REQUEST FOR NEW RX FOR HIS HOME MEDICATIONS AND NEBULIZER MACHINE TO DR. WHITTEN VIA TELEPHONE. DR. WHITTEN STATED THAT PT SEES HIS PCP AT [facility], WHO ORDERS PT'S HOME MEDCIATIONS, AND THAT PT NEEDED TO CONTACT [facility] REGARDING OBTAINING REPLACEMENTS FOR HIS LOST HOME MEDICATIONS AND EQUIPMENT. RELAYED THIS INFORMATION TO PT, ANGEL LUIS, PHARMACIST IN PT'S ROOM AT THIS TIME. ASKED PT IF HE UNDERSTOOD THAT HE NEEDED TO CONTACT [facility], AND THAT HE WAS RESPONSIBLE FOR OBTAINING HIS HOME MEDICATIONS. PT VERBALIZED UNDERSTANDING.
--- NOTE | 2017-10-26 13:35 | NUR ---
PT TO BE DC'D TO G.MOTHERS HOME. GIVEN PHONE #'S FOR HELP LINES TO GET THE HELP HE NEEDS. PT TOLD ME HE WAS TIRED, I KEPT HIM TALKING ABOUT PLAYING THE [employer]. 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 PT SHOOK MY HAND, LET ME PRAY FOR HIM, HE SMILED, GAVE ME A FIST BUMP AND FADED OFF TO SLEEP. GOD BLESS HIM AND KEEP HIM SAFE
[2017-10-26] MEDS ORDERED: IPRATROPIU0.2 MG/1 M INH (13:45)
[2017-10-26] MEDS ORDERED: CLARITIN10 MG PO (13:45)
--- NOTE | 2017-10-26 14:08 | NUR ---
PATIENT DRESSED AND SITTING UP IN BED. WAITING TO DISCHARGE.
== END 2017-10-26 14:25 | disposition home or self-care (01) | DRG 189 ==
LOC: ED 11:34 → MS 15:43 → CCU 15:43 → MS 10-25 11:50
PROVIDERS: ADMIT Internal Medicine
DX: J96.01 Acute respiratory failure with hypoxia (principal); J45.51 Severe persistent asthma with (acute) exacerbation; J96.02 Acute respiratory failure with hypercapnia; L30.9 Dermatitis, unspecified; F15.10 Other stimulant abuse, uncomplicated; F17.200 Nicotine dependence, unspecified, uncomplicated; Z79.51 Long term (current) use of inhaled steroids; Z79.52 Long term (current) use of systemic steroids; Z79.899 Other long term (current) drug therapy; Z59.0 Homelessness
CPT/HCPCS: 36415; 36600; 71045; 80053; 82803; 83605; 85025; 94640; 94644; 94667; 94668; 94761; 94762; 96361; 96372; 96374; 96375; 96376; 99285; J1200; J2405; J2930; J3475; J7120

== ENCOUNTER 2017-11-14 15:04 | Inpatient (IN) | payer OTHER ==
[~2017-11-14] VITALS: Ht 167.6 cm; Wt 65.2 kg
[~2017-11-14 15:04] MED LIST changes: +CLARITIN10 MG PO; +IPRATROPIU0.2 MG/1 M INH
[2017-11-14] MEDS ORDERED: PREDNISONE20 MG PO (17:39)
[2017-11-14] MEDS ORDERED: TRIAMCINOLONE A15 G1 TOP (17:39)
[2017-11-16] MEDS ORDERED: VENTOLIN HFA18 GM INH (12:38)
[2017-11-16] MEDS ORDERED: CALAMINE180 ML TOP (12:40)
[2017-11-16] MEDS ORDERED: CLARITIN10 MG PO (12:40)
[2017-11-16] MEDS ORDERED: IPRATROPIU0.2 MG/1 M INH (12:42)
[2017-11-17] MEDS ORDERED: IPRATROPIU0.2 MG/1 M INH (11:23)
[2017-11-17] MEDS ORDERED: ALBUTEROL2.5 MG/3 M INH (11:24)
[2017-11-17] MEDS ORDERED: ADVAIR 500-501 EACH INH (11:25)
[2017-11-17] MEDS ORDERED: NICORETTE4 M2 BUCCAL (11:25)
[2017-11-17] MEDS ORDERED: VENTOLIN HFA18 GM INH (11:25)
[2017-11-17] MEDS ORDERED: PREDNISONE20 MG PO (11:26)
== END 2017-11-17 11:50 | disposition home or self-care (01) | DRG 203 ==
LOC: ED 15:04 → MS 15:05
PROVIDERS: ADMIT Internal Medicine
DX: J45.51 Severe persistent asthma with (acute) exacerbation (principal); F17.210 Nicotine dependence, cigarettes, uncomplicated; L30.9 Dermatitis, unspecified; F15.11 Other stimulant abuse, in remission; Z59.0 Homelessness; Z79.899 Other long term (current) drug therapy; Z91.14 Patient's other noncompliance with medication regimen
CPT/HCPCS: 36415; 71046; 80053; 85025; 94640; 96374; 96376; 99285; G0378; J2405; J2930; J7512

== ENCOUNTER 2018-07-11 19:11 | Inpatient (IN) | payer OTHER ==
[~2018-07-11] VITALS: Ht 167.6 cm; Wt 71.7 kg
[~2018-07-11 19:11] MED LIST changes: +ADVAIR 500-501 EACH INH; +CALAMINE180 ML TOP; +DELTASONE20 MG PO; +FLOVENT HFA12 G1 INH; +LC D NEBULIZER1 EAC1 MISC; +NICOTINE PATCH1 EAC1 TD; +TRIAMCINOLONE A15 G1 TOP; +VENTOLIN HFA18 GM INH
--- OUTSIDE RECORDS SUMMARY | 2018-07-11 19:16 | XMS ---
PreManage Notification: MEGA PACHECO Security Windows Consultant Events No recent Security Events currently on file CRITERIA MET - [facility] - 2 Visits in 30 Days CARE PROVIDERS CHRIS SINGHor 01/10/2018-Current PHONE: [phone] DOCTOR MITCHELL Primary Care Current PHONE: Unknown CIELO COHEN MD Primary Care Current PHONE: [phone] Venus has no Care Guidelines for this patient. Care History Medical/Surgical 05/31/2018 [facility] -\T\middot; PATIENT HAS NOT SEEN PCP DR COHEN FOR A COUPLE OF YEARS. - THERE IS NO WAY OF CONTACTING PATIENT, NO NUMBER ON RECORD FOR CONTACT. - PCP OFFICE HAS TRIED TO CONTACT PATIENT AND NO RETURN CALLS. - PATIENT WAS PLACED ON A VENT IN THE PAST SO PATIENT ASTHMATIC SYMPTOMS SHOULD BE ADDRESSED RIGHT AWAY. 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 - PLEASE REFER PATIENT TO [facility] FOR NON EMERGENT MEDICAL NEEDS. - [facility] CAN SEE PATIENTS SAME DAY FOR APTS IF PATIENT CALLS FIRST THING IN THE MORNING. E.D. VISIT COUNT (12 MO.) 1 [facility]ardo Steen TOTAL 6 NOTE: Visits indicate total known visits. ED/UCC VISIT TRACKING (12 MO.) 07/11/2018 19:12 [facility] TYPE: Emergency COMPLAINT: - SOB 06/11/2018 06:25 [facility] TYPE: Emergency COMPLAINT: - SOB 05/30/2018 14:56 [facility] TYPE: Emergency COMPLAINT: - DIFFICULTY BREATHING DIAGNOSES: - Unspecified asthma with (acute) exacerbation - Nicotine dependence, unspecified, uncomplicated - [place] [facility] [place] drug therapy 01/16/2018 18:30 [facility] TYPE: Emergency DIAGNOSES: - Unspecified psychosis not due to a substance or known physiological condition - Psych Evaluation 11/14/2017 15:04 [facility] TYPE: Emergency COMPLAINT: - SOB 10/24/2017 11:34 [facility] TYPE: Emergency COMPLAINT: - SOB INPATIENT VISIT TRACKING (12 MO.) 06/11/2018 06:26 [facility] TYPE: Medical Surgical COMPLAINT: - ASTHMA EXACERBATION DIAGNOSES: - Severe persistent asthma with (acute) exacerbation - Other [place] [facility] [place] drug therapy - Nicotine dependence, cigarettes, uncomplicated - Homelessness - Patient's noncompliance with other medical treatment and regimen - Unspecified asthma with (acute) exacerbation - Other psychoactive substance abuse, uncomplicated - Dermatitis, unspecified 11/15/2017 11:51 [facility] TYPE: Medical Surgical COMPLAINT: - ASTHMA, EXACERBATION DIAGNOSES: - Severe persistent asthma with (acute) exacerbation - Nicotine dependence, cigarettes, uncomplicated - Patient's other noncompliance with medication regimen - Dermatitis, unspecified - Homelessness - Other stimulant abuse, in remission - 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 10/24/2017 15:43 [facility] TYPE: Medical Surgical COMPLAINT: - ASTHMA EXAC DIAGNOSES: - Acute respiratory failure with hypercapnia - Acute respiratory failure with hypoxia - Nicotine dependence, unspecified, uncomplicated - terminal gauger (current) use of inhaled steroids - Other [place] [facility] [place]current) drug therapy - Homelessness - Severe persistent asthma with (acute) exacerbation - Dermatitis, unspecified - penitentiary (current) use of systemic steroids - Other stimulant abuse, uncomplicated [email or web address]
--- NOTE | 2018-07-11 23:00 | NUR ---
PT ARRIVED TO UNIT VIA STRETCHER FROM ED. PT ABLE TO SELF TRANSFER. PT CURRENTLY ON 2L OXYMASK, ACCESSORY MUSCLE USE NOTED, ABD BREATHING, GRUNTING ON OCCASSION. INSPIRATORY AND EXPIRATORY WHEEZE HEARD THROUGHOUT ALL ISIDRO, BUL TIGHT. RR IN THE 30'S. SINUS RHYTHM NOTED ON MONITOR. BOWEL TONES ACTIVE, DUE FOR BM. SCABBING AND SCRATCHES NOTED ALL OVER BODY, SKIN DRY AND SCALY. CENTRAL LINE PLACED TO RIJ, TRIPLE LUMEN, ALL SITES FLUSHING WELL AND DRAWING BACK BLOOD. 1LR BOLUS TO BE GIVEN. RT IN ROOM WITH BIPAP, PT REFUSING. DENIES PAIN OR NAUSEA.
--- NOTE | 2018-07-12 | NUR ---
EDUCATION PROVIDED ON BIPAP USE, QUESTIONS ANSWERED, PT AGREEABLE TO WEAR BIPAP FOR SHORT PERIOD OF TIME. LUNG SOUNDS REMAIN UNCHANGED WITH INSPIRATORY AND EXPIRATORY WHEEZE HEARD THROUGHOUT, BUL TIGHT, INCREASED AIR FLOW NOTED IN BLL, RR 28, OXYGEN SATURATION 97%.
--- NOTE | 2018-07-12 01:30 | NUR ---
PT REFUSING TO TO WEAR BIPAP FOR LONG PERIODS OF TIME. BIPAP USED FOR TWO 10 MIN INTERVALS. PT STATES "IT DOESN'T BREATH WITH ME, CAN YOU FIX THAT." R/T TO ADJUST SETTINGS. DENIES OTHER NEEDS. CALL LIGHT WITHIN REACH .
--- NOTE | 2018-07-12 02:30 | NUR ---
CALL LIGHT ANSWERED, PT NEEDING TO HAVE BM, UP TO BSC. MEDIUM FORMED BM. PT REQUESTING TO HAVE BREAK FROM BIPAP, PLACED ON 2L OXYMASK. PT ABLE TO WEAR BIPAP FOR TOTAL TIME OF 45 MINS. PT ASSISTED BACK TO BED. REQUESTING TO REST. CALL LIGHT WITHIN REACH.
--- NOTE | 2018-07-12 03:34 | NUR ---
IN ROOM TO ASSESS PT. RR NOTED TO BE 12-16, SPO2 99% ON 2L OXYMASK, INCREASED DROWSINESS, AND INCREASED RETRACTIONS AND ABD BREATHING. PT AWAKENS TO VERBAL STIMULATION AND FOLLOW COMMANDS, MUMMBLING NOTED. RT CALLED AND AT BEDSIDE. PT MORE RESPONSIVE AND ALERT WITH STIMULATION. PT REFUSING BIPAP AND IRRATABLE. EDUCATION PROVIDED. PT AGREEABLE TO BIPAP AND NEB TREATMENT. WILL CONTINUE TO MONTIOR AND REASSESS.
--- NOTE | 2018-07-12 04:15 | NUR ---
IN ROOM TO REASSESS PT. PT RESTING WITH EYES CLOSED, RR 19, ACCESSORY MUSCLE USE NOTED, ABD BREATHING, 2L OXYMASK IN PLACE. PT AWAKENS EASILY TO VERBAL STIMULI, ABLE TO FOLLOW COMMANDS, REQUESTING FOOD. ADVISED PT NO FOOD AT THIS TIME. PT REQUESTING TO REST. DENIES OTHER NEEDS. CALL LIGHT WITHIN REACH.
--- NOTE | 2018-07-12 05:21 | NUR ---
PT HEAD MOVING IN ROOM. PT USING URINAL, 375 ML YELLOW URINE EMPTIED. PT BACK TO BED. OXYMASK AT 2L PLACED. PT DENIES OTHER NEEDS. CALL LIGHT WITHIN REACH.
--- NOTE | 2018-07-12 05:25 | NUR ---
NOISES HEARD COMING FROM PT'S ROOM. PT UP USING URINAL, 375 ML YELLOW URINE. PT BACK TO BED. 2L OXYMASK IN PLACE. FALL PREVENTION AND SAFETY EDUCATION REINFORCED, PT VERBALIZED UNDERSTANDING. DENIES OTHER NEEDS. CALL LIGHT WITHIN REACH.
--- NOTE | 2018-07-12 06:31 | NUR ---
PT ENCOURAGED TO USE BIPAP, 2L OXYMASK USED WHEN NOT ON BIPAP. PT'S LUNG SOUNDS REMAIN UNCHANGED, ACCESSORY MUSCLE USE CONTINUE, RR DECREASED FROM ADMIT TO 18-22 FROM 30'S, OXYGEN SATURATION GREATER THAN 95% SINCE ADMIT. PT NOTED TO HAVE INCREASED AGGITATION AND FREQUENTLY REQUESTING FOOD AND REST. SINGLE EPISODE OF INCREASED DROWSINESS AND DESREASED RR TO 12-16 THAT RESOLVED WITH STIMULATION. RIJ IN PLACE AND DRAWING BACK BLOOD IN ALL THREE LUMENS. FREQUENTLY THERAPEUTIC COMMUNICATION AND ENCOURAGEMENT NEEDED FOR INTERVENTIONS. SCHEDULED NEBS AND SOLUMEDROL. LR INFUSING AT 125 ML/HR.
--- NOTE | 2018-07-12 08:00 | NUR ---
ASSESSMENT DONE. ASKING FOR FOOD. STATES HE IS BREATHING EASIER. LUNGS REMAINS TIGHT WITH EXP WHEEZES. TALKED WITH PATIENT ABOUT PLAN OF CARE FOR DAY. IVF PATIENT. RESP THERAPY HERE TO DONE TREATMENT.
--- NOTE | 2018-07-12 09:23 | NUR ---
MED REC COMPLETE
--- NOTE | 2018-07-12 09:30 | NUR ---
DR. BUSTOS HERE TO SEE PATIENT. OKAY TO FEED PATIENT. BREAKFAST ORDERED.
--- NOTE | 2018-07-12 11:00 | NUR ---
SLEEPING AFTER EATING. NO INCREASED RESP DITRESS NOTED. REMAINS ON RA, SAT-96.
--- NOTE | 2018-07-12 14:24 | NUR ---
PT SITTING IN DARKENED RM, IN BED EATING LUNCH. HE SEEMS VERY HUNGRY, AND STOPPED LONG ENOUGH TO SHAKE MY HAND. BRIEF VISIT, WE SHOOK HANDS AGAIN AND I EXTENDED A BLESSING. WILL FOLLOW NEEDED
--- NOTE | 2018-07-12 16:40 | NUR ---
WOUND NURSE THA Stratton RN HERE TO SEE PATIENT. RECOMMENDED TO APPLY FOAM PATCH WITH LANOLIN CREAM, THIS PLACED BY TANYA GAMBLE.
--- NOTE | 2018-07-12 17:19 | NUR ---
PT DENIES NEEDS FOR A HOME STATES HE JUST COT SURFS AND HE WILL TAKE HIS NEB WITH HIM AND DO THINGS THE SAME WAY HE HAS BEEN DOING THEM AND WE WON'T CHANGE THAT. THIS IS HOW I LIVE.
--- NOTE | 2018-07-12 17:52 | NUR ---
SLEEPING, RESP EFFORT EVEN AND NON-LABORED.
--- NOTE | 2018-07-12 18:20 | NUR ---
C/O INCREASED SHORTNESS OF BREATH, REQUESTING NEB TREATMENT. RESP THERAPY AWARE.
--- NOTE | 2018-07-12 19:00 | NUR ---
REPORT TO NEXT SHIFT. PT RESTFUL
--- NOTE | 2018-07-12 19:30 | NUR ---
REPORT RC'D FROM DAY SHIFT NURSE PILY. REPORTS IMPROVEMENT IN AIRFLOW, TOLERATING ROOM AIR FOR MOST OF DAY, INSPIRATORY/EXPIRATORY WHEEZE IN BILATERAL ISIDRO CONTINUE. PT CURRENTLY RESTING IN BED WITH EYES CLOSED, NO ACUTE DISTRESS NOTED.
--- NOTE | 2018-07-12 20:00 | NUR ---
R/T IN ROOM TO ASSESS PT AND GIVE CHRISTOPHER'D NEB.
--- NOTE | 2018-07-12 21:00 | NUR ---
PT AWAKENS EASILY TO VERBAL STIMULI, MILD AGGITATION NOTED, A&O X4, PT REQUESTING TO REST. SINUS RHYTHM NOTED ON MONITOR. INSPIRATORY/EXPIRATORY WHEEZE NOTED IN BUL AND TIGHT. WHEEZE NOTED IN BLL, IMPROVED AIR MOVEMENT FROM YESTERDAY, RR 18-22, TOLERATING ROOM AIT WITH OXYGEN SATURATION GREATER THAN 95%. NO COUGH. PT TOELRATING REGULAR DIET. VOIDING QS. RIGHT IJ WITH TRIPLE LUMEN, SITES FLUSHED WITH 10ML NS, PATENT AND DRAWING BACK BLOOD, DRESSING INTACT. LR INFUSING AT 125 ML/HR. DENIES OTHER NEEDS. CALL LIGHT WITHIN REACH.
--- NOTE | 2018-07-12 22:00 | NUR ---
FRIEND AT BEDSIDE TO SIT QUIETLY WITH PT. PT RESTING IN BED, AWAKENS EASILY, REQUESTING PUDDING AND DRINK, PROVIDED. DENIES OTHER NEEDS.
--- NOTE | 2018-07-12 23:20 | NUR ---
CALL LIGHT ANSWERED, PT REQUESTING NEB TREATMENT EARLY. RT CALLED AND AT BEDSIDE TO GIVE NEB TREATMENT. PT REMAINS ON ROOM AIR WITH OXYGEN SATURATION GREATER THAN 95%. WILL CONTINUE TO MONITOR.
--- NOTE | 2018-07-13 | NUR ---
NO ACUTE CHANGES IN ASSESSMENT. INSPIRATORY AND EXPIRATORY WHEEZE CONTINUE IN BUL. WHEEZE CONTINUE IN BLL. TOLERATING ROOM AIR WITH OXYGEN SATURATION GREATER THAN 95%. PT'S SIGNIFICANT OTHER AT BEDSIDE. PT APPEARS MORE INTERACTIVE WITH SIGNIFICANT OTHER IN ROOM. PT JOKING AND LAUGHING. REINFORCED BALANCING REST AND ACTIVITY WITH CURRENT CONDITION, PT AND SIGNIFICANT OTHER VARBALIZED UNDERSTANDING. DENIES OTHER NEEDS. CALL LIGHT WITHIN REACH.
--- NOTE | 2018-07-13 01:43 | NUR ---
PT RESTING IN BED WITH SIGNIFICANT OTHER AT BEDSIDE. RR 20 WITH OXYGEN SATURATION 95% ON ROOM AIR. NO ACUTE DISTRESS NOTED.
--- NOTE | 2018-07-13 03:17 | NUR ---
NO ACUTE CHANGES
--- NOTE | 2018-07-13 04:00 | NUR ---
CALL BENJAMIN BURNETTE, PT REQUESTING NEB TREATMENT. INSPIRATORY AND EXPIRATORY WHEEZE HEARD IN BUL, BLL NOTED TO BE COARSE WITH WHEEZE BILATERALLY. PT TOLERATING ROOM AIR WITH OXYGEN SATURATION NOTED TO BE 93%. RT IN ROOM TO GIVEN NEB.
--- NOTE | 2018-07-13 05:00 | NUR ---
PT RESTING IN BED WITH EYES CLOSED, RESPIRATIONS EVEN AND LABORED, RR 18-22, TOLERATING ROOM AIR. DENIES OTHER NEEDS.
--- NOTE | 2018-07-13 06:28 | NUR ---
PT REQUESTED TO REST FOR MOST OF NIGHT WITH SIGNIFCANT OTHER AT BEDSIDE. SCHEDULED NEBS GIVEN. PT HAS REMAINED A&O X4, DROWSY BUT EASILY AWAKENS WITH VERBAL STIMULI. BUL CONTINUE TO BE TIGHT WITH INSPIRATORY AND EXPIRATORY WHEEZE. BLL NOTED TO HAVE GOOD AIR MOVEMENT, WHEEZE, AND NOW SLIGHTLY COARSE. PT HAS REMAINED ON ROOM AIR ALL NIGHT WITH NO DESATURATIONS, RR 18-22. ABD AND ACCESSORY MUSCLE USE CONTINUES. PT VOIDING QS. PT TOLERATING REGULAR DIET.
--- NOTE | 2018-07-13 08:45 | NUR ---
ASSESSMENT COMPLETED AT THIS TIME. MEDS GIVEN. PT IS RESTING IN BED WITH ALL LIGHTS OFF WITH VISITOR SLEEPING AT BEDSIDE. PT IS CALM, COOPERATIVE BUT WITH FLAT AFFECT AND IRRITABLE. A/O X4, NO C/O PAIN, NO N/V. PT STATES THAT HE'S "MUCH BETTER" THAN WHEN HE CAME TO HOSPITAL. EXP. WHEEZING THROUGHOUT ALL LOBES. ROOM AIR. RIGHT IJ WNL- DRSG REINFORCED; ALL TRIPLE LUMENS FLUSH EASILY AND WELL WITH GOOD BLOOD RETURN. PT HAS NO QUESTIONS OR CONCERNS. CALL LIGHT WITHIN REACH. FALL PRECAUTION IN PLACE. WILL CONTINUE TO MONITOR.
--- NOTE | 2018-07-13 10:30 | NUR ---
PT CONTINUES TO LAY IN BED RESTING, NO C/O PAIN. NO QUESTIONS, NO CONCERNS, DENIES ANY NEEDS TO BE MET. PLANS TO TRANSFER TO M/S UNIT TODAY PER DR. BUSTOS. CALL LIGHT WITHIN REACH. WILL CONTINUE TO MONITOR.
--- NOTE | 2018-07-13 11:45 | NUR ---
PT HEP LOCKED IN ALL 3 LUMENS; DRSG CHANGED ON RIGHT IJ. REPORT GIVEN TO RECEIVING MAVIS CASTRO ON THE TELEPHONE.
--- NOTE | 2018-07-13 12:00 | NUR ---
PT TRANSFERED VIA WHEELCHAIR WITH ALL BELONGINGS TO M/S UNIT ROOM 125; VSS. TRANSFER COMPLETE.
--- NOTE | 2018-07-13 12:00 | NUR ---
PATIENT TRANSFERED TO ROOM 125 FROM CCU, CCU NURSE WITH PATIENT IN WHEELCHAIR. PATIENT TRASNFERED TO BED INDEPENDENTLY. ASSESSMENT DONE, EXW THROUGHOUT ALL LUNG ISIDRO, DENIES FEELING SOB, BREATHING IS EVEN AND UNLABORED. DENIES NEEDS AT THIS TIME. CALL LIGHT WITHIN REACH, FAMILY AT BEDSIDE.
--- NOTE | 2018-07-13 12:09 | CONS ---
[facility] [address] [place] [address] Signed DATE OF CONSULTATION: 07/11/2018 CONSULTING PHYSICIAN: Mary Latham MD PROBLEM: Impossible peripheral access; asthma, acute flare. HISTORY OF PRESENT ILLNESS: This 23-year-old [place] man is seen in the emergency room for an exacerbation of rather significant asthma. He has been given a breathing treatment and so forth and attempts at peripheral IV access were then completely unsuccessful. The patient has psoriasis or other inflammatory skin problems as well and has a fair amount of itching and so forth. Request is made for central venous catheter for medications, fluids and so forth. PAST MEDICAL HISTORY: Significant primarily for anxiety. Additionally, he has asthma as described. He has had multiple visits to ER. PHYSICAL EXAMINATION: GENERAL: This is an anxious [place] man, who is somewhat diaphoretic and slightly tachypneic. His O2 saturation currently is 100% on a mask oxygen. He has a very muscular neck and chest. ABDOMEN: Flat and nondistended. SKIN: Has no petechiae. NECK: He has no jugular venous distention that I can tell. ASSESSMENT: Central venous access may be best obtained through a right internal jugular approach. The risks of bleeding, infection, pneumothorax, and so forth were reviewed with him. He agrees to proceed. MD CANDIDA Manley/DOMINICK /[id number] Electronically Signed By: MARY LATHAM MD 07/13/18 1209 PATIENT NAME: MEGA PACHECO CONSULTATION DATE OF : [birth year] REPORT #: [id number] PHYSICIAN: MARY LATHAM MD PCP: CIELO COHEN MD REPORT IS CONFIDENTIAL AND NOT TO BE RELEASED WITHOUT AUTHORIZATION [address] [address] Signed cc: Raghav Diez MD Copies: RAGHAV DIEZ MD ~ Electronically Signed By: MARY LATHAM MD 07/13/18 1209 PATIENT NAME: MEGA PACHECO CONSULTATION DATE OF : [birth year] REPORT #: [id number] PHYSICIAN: MARY LATHAM MD PCP: CIELO COHEN MD REPORT IS CONFIDENTIAL AND NOT TO BE RELEASED WITHOUT AUTHORIZATION
--- NOTE | 2018-07-13 12:09 | OR ---
[facility] [address], [place] [address] Signed DATE OF OPERATION: 07/11/2018 SURGEON: Mary Latham MD PREOPERATIVE DIAGNOSES: 1. Severe asthma attack, need for central venous catheterization, no peripheral access accessible. 2. Psoriasis and itching. POSTOPERATIVE DIAGNOSES: 1. Severe asthma attack, need for central venous catheterization, no peripheral access accessible. 2. Psoriasis and itching. PROCEDURE PERFORMED: Right internal jugular central venous catheter (Arrow Blue Tip triple-lumen catheter placement). PROLONGED COMPLICATED AND DIFFICULT ANESTHESIA: 1% lidocaine. INDICATION: A 23-year-old man with asthma and exacerbation needing central access. Notably, he has had multiple attempts peripherally (21 attempts in total) for peripheral access, which have been unsuccessful. The risks of bleeding, infection, pneumothorax, and so forth were reviewed with him. He understands and wished to proceed. FINDINGS: Multiple episodes of access to the right internal jugular vein were undertaken ultimately allowing for passage of a flexible wire and placement of Arrow Blue Tip triple-lumen catheter. Good function of catheter was noted at completion. Chest x-ray is pending. DESCRIPTION OF PROCEDURE: In the supine position with face mask in place, face was turned to the left, and the neck and upper torso prepared with a chlorhexidine solution and draped sterilely. Lidocaine 1% was injected over the right sternocleidomastoid muscle. Using the Seldinger technique with the needle kit for the Arrow Blue Tip triple-lumen catheter, access to the right internal jugular vein was readily forthcoming. Aspiration showed dark nonpulsatile blood. Attempts at passage of the flexible wire were thwarted by his Electronically Signed By: MARY LATHAM MD 07/13/18 1209 PATIENT NAME: MEGA PACHECO OPERATIVE REPORT DATE OF : [birth year] REPORT #: [id number] PHYSICIAN: MARY LATHAM MD PCP: CIELO COHEN MD REPORT IS CONFIDENTIAL AND NOT TO BE RELEASED WITHOUT AUTHORIZATION [facility] [address], [place] [address] Signed hyperventilation straining and so forth. Several repeat accesses were undertaken ultimately allowing for passage of a flexible J-wire down the needle without resistance. The site was incised and blue dilator applied and ultimately a previously inspected and irrigated Arrow Blue Tip triple-lumen catheter passed over the wire. The wire was removed. Aspiration on the distal port showed dark, nonpulsatile blood. Blood was flushed with saline. Catheter was withdrawn a bit and an enclosed collar device applied and the catheter secured to the skin with a Mp needle and nylon and silk suture. An anti-infective disk was applied as was an OpSite. The patient tolerated the procedure well. Blood loss in aggregate about 20 mL. The procedure was very prolonged and difficult, but accomplished safely... MD CANDIDA Manley/DOMINICK /[id number] cc: Raghav Diez MD Copies: RAGHAV DIEZ MD ~ Electronically Signed By: MARY LATHAM MD 07/13/18 1209 PATIENT NAME: MEGA PACHECO OPERATIVE REPORT DATE OF : [birth year] REPORT #: [id number] PHYSICIAN: MARY LATHAM MD PCP: CIELO COHEN MD REPORT IS CONFIDENTIAL AND NOT TO BE RELEASED WITHOUT AUTHORIZATION
--- NOTE | 2018-07-13 12:31 | NUR ---
PATIENT SPO2 89% ON ROOM AIR WHILE AT REST, PLACED ON 2L O2 VIA NC, SPO NOW 93%. PATIENT DENIES FURTHER NEEDS. CALL LIGHT WITHIN REACH.
--- NOTE | 2018-07-13 14:24 | NUR ---
PATIENT RESTING IN BED, EYES CLOSED, RN IN ROOM. NO OTHER NEEDS AT THIS TIME.
--- NOTE | 2018-07-13 15:15 | NUR ---
PATIENT REPORTS SOB, EXW THROUGHOUT ALL LUNG ISIDRO. PRN BREATHING TREATMENT GIVEN. DENIES FURTHER NEEDS. CALL LIGHT WITHIN REACH.
--- NOTE | 2018-07-13 16:31 | NUR ---
PATIENT RESTFUL IN BED WATCHING TV. DENIES NEEDS AT THIS TIME, STATES THAT BREATHING IS FINE, SPO2 93% ON 2L O2. BREATHING IS EVEN AND UNLABORED. CALL LIGHT WITHIN REACH.
--- NOTE | 2018-07-13 17:58 | NUR ---
PATIENT SITTING UP IN BED EATING DINNER. CALL LIGHT IN REACH. NO OTHER NEEDS AT THIS TIME.
--- NOTE | 2018-07-13 21:28 | NUR ---
ON 2L NC , INSP/EXP WHEEZING T/O BILAT, REQUIRED SEVERAL CUES FROM THIS RN TO HAVE PT ACCEPT THIS RN TO COMPLETE HER ASSESSMENT, R IJ HEP LOCK, FLUSHES EASILY. DECLINED HEPAINE SC. HAD DECLINED 1999 NEB EARLIER AND REQUESTING IT NOW, RT TO BE NOTIFIED. SEMICOOPERATIVE, FRESH WATER AND FRESH COLA DRINK GIVEN ON REQUEST
--- NOTE | 2018-07-13 22:16 | NUR ---
ROUNDED CHARGE. PATIENT IS RESTING IN BED. CORROSION CONTROL ENGINEER IN THE ROOM. PATIENT DENIES ANY COMMNETS, QUESTIONS OR CONCERNS. NO NEEDS NOTED. CALL LIGHT IN REACH.
--- NOTE | 2018-07-14 02:14 | NUR ---
Pt c/o being hungry, snack heather given, and warm pad for back given to pt. Sitting up in bed, no c/o resp distress. O2 2l nc. IJ line intact
--- NOTE | 2018-07-14 06:27 | NUR ---
CURRENTLY RESTING EYES CLOSED. O2 2LNC, CONT PULSE OX IN PLACE, SASTS 92%. CONTINUES TO RECEIVE 60MG SOLUMEDROM, AND NEBS SCHEDULED AND PRN C/O SOB. LUNGS NO CHANGES FROM INITIAL NOC ASSESSMENT, INSP/EXP WHEEZING. OCASSIONAL COUGH NOTED. DRY, NON PRODUCTIVE. IJ R SIDE INTACT, FLUSHES EASILY. PT HAS REQUESTED AND EATEN SEVERAL SANDWICHES BOXES. AND MULTIPLE CANS OF POP, NO C/O N/V. FRIEND ROOMING IN.
--- NOTE | 2018-07-14 07:28 | NUR ---
REPORT RECEIVED FROM MAVIS PEREZ. PT RESTING IN BED. BED RAILS UP. CALL LIGHT WITHIN REACH.
--- NOTE | 2018-07-14 09:20 | NUR ---
MORNING ASSESSMENT AND MEDICATIONS DUE. THIS RN TO BEDSIDE. PT RESTING WITH EYES CLOSED, RR = 20, REGULAR RATE AND RHYTHEM. EMPTY BREAKFAST TRAYS NOTED. PTS GIRLFRIEND SLEEPING IN BED NEXT TO PT. PT AWAKENS TO VOICE AND LIGHT TOUCH. ORIENTED X4. ASSESSMENT DONE. INSPIRATORY AND EXPIRATORY WHEEZES NOTED THROUGHOUT LUNGS. CENTRAL LINE ASSESSED, WNL, BRISK BLOOD RETURN NOTED FROM ALL LUMENS. MEDICATIONS GIVEN. ALL 3 LUMENS FLUSHED AND HEPARIN LOCKED PER PROTOCOL. PT CONTINUES RESTING WITH EYES CLOSED. VERBALIZES THAT HE HAS NO REQUESTS OR COMPLAINTS AT THIS TIME. BED RAILS UP. CALL LIGHT WITHIN REACH. RT AT BEDSIDE FOR NEB TREATMENT.
--- NOTE | 2018-07-14 11:00 | NUR ---
THIS RN TO ROOM TO CHECK ON PT. PT RESTING WITH EYES CLOSED. BED RAILS UP. CALL LIGHT WITHIN REACH. O2 SATURATION = 93% ON 2L NC
--- NOTE | 2018-07-14 11:58 | NUR ---
NOON ASSESSMENT AND RESPIRATORY TX DUE. THIS RN TO BEDSIDE. PT CONTINUES RESTING WITH EYES CLOSED. PT AWAKENS TO VOICE AND AGREES TO ORDER LUNCH BUT IS OTHERWISE IRRIATABLE. COMPLIANT WITH CARES AT THIS TIME. ASSESSMENT DONE. INSPRIATORY AND EXPIRATORY WHEEZES NOTED THROUGHOUT. PT ASSISTED WITH ORDERING LUNCH. RESPRIATORY THERAPY AT BEDSIDE FOR BREATHING TX. BED RAILS UP. NO ADDITIONAL REQUESTS OR COMPLAINTS AT THIS TIME.CALL LIGHT WITHIN REACH.
--- NOTE | 2018-07-14 13:33 | NUR ---
AFTER VITALS WERE DONE PATIENT ASKED FOR TWO HOT PACKS.
--- NOTE | 2018-07-14 13:45 | NUR ---
THIS RN TO ROOM TO CHECK ON PT. PT RESTING WITH EYES CLOSED, RR = 20BPM, O2 94% ON 2L NC. NEW WARM PACKS PROVIDED PER REQUEST. WHITE LINE OF CENTRAL LINE ASSESSED, WNL, BRISK BLOOD RETURN NOTED, MEDICATION GIVEN. WHITE LINE RE-HEPARIN LOCKED PER PROTOCOL. NO ADDITIONAL REQUSTS OR COMPLAINTS AT THIS TIME. BED RAILS UP. CALL LIGHT WITHIN REACH.
--- NOTE | 2018-07-14 14:17 | NUR ---
WENT INTO ROOM THIS MORNING AND PATIENT WAS SLEEPING. HE DID ASK FOR TWO WARM BLANKETS.
--- NOTE | 2018-07-14 15:22 | NUR ---
MD REQUESTS CENTRAL LINE DRESSING CHANGE AND TO GET PT UP TO WALK. THIS RN TO BEDSIDE. PT REQUESTS "SOMETHING TO EAT." SNACKS OFFERED, PT DECLINES ALL OPTIONS AND DECIDES TO EAT CHIPS FROM HOME. CENTRAL LINE DRESSING CHANE DONE PER PROTOCOL. PT ENCORUAGED TO GET UP TO WALK. PT REFUESES AT THIS TIME. EDUCATION DONE, PT CONTINUES TO DECLINE AMBULATION. BED RAIL UP. CALL LIGHT WITHIN REACH.
--- NOTE | 2018-07-14 15:47 | NUR ---
DURING CENTRAL LINE DRESSING CHANGE THIS RN NOTED THAT 5CM APPEARS TO BE EXPOSED ( OPPOSED TO 2CM NOTED IN RECORDS). DR. LATHAM CONSULTED AND STATES OK TO USE CENTRAL LINE LONG BLOOD RETURN CONTINUES TO BE NOTED AND STATES TO USE DISTAL (BROWN) PORT. PT ENCOURAGED TO WALK. AGREES TO WALK WITH THIS RN. 2 LAPS DONE WELL ONE WALK DOWN THE FERRO TO THE WINDOW. PT REFUSED TO AMBULATE WITH OUT O2, PT REMAINED ON 2L O2 WHILE ON WALK. PT REQUESTS BREATHING TX. RT TO BEDSIDE. CALL LIGHT WITHIN REACH.
--- NOTE | 2018-07-14 17:30 | NUR ---
PT UP TO AMBULATE AROUND FERRO X3 WITH STUDENT RN. PT ON 2L O2 BY NC DURING WALK. BACK TO BED WITH OUT ISSUE. NO ADDITIONAL REQUESTS OR COMPLAINTS.
--- NOTE | 2018-07-14 18:03 | NUR ---
PT HERE FOR ASTHMA EXACERBATION. SLEPT MOST OF THE DAY, ENCORUAGED TO AMBULATE. UP X2 TO AMBULATE IN FERRO. PT REMAINS ON 2L O2, USES WITH AMBULATION WELL. SCHEDULED AND PRN NEBULIZER TX. PRN TX GIVEN X1 TODAY. CENTRAL LINE IN PLACE, USING BROWN PORT PER DR. LATHAM ORDERS. ALL PORTS GIVEN BLOOD RETURN. PT USES CALL LIGHT FREQUENTLY.
--- NOTE | 2018-07-14 19:20 | NUR ---
SHIFT REPORT RECIEVED FROM DAYSHIFT RN. PT RESTING IN BED. CONTINUOUS PULSE OX IN PLACE, PT ON 2LNC. O2 SAT 93%, HR82. EYES CLOSED, RR EVEN AND UNLABORED. CALL LIGHT IN REACH.
--- NOTE | 2018-07-14 20:30 | NUR ---
ASSESSMENT COMPLETE. PT A/OX4 DENIES PAIN. PT IRRITABLE AND STATED DURING ASSESSMENT, "CAN YOU JUST HUSTLE". SCHEDULED MEDS GIVEN. PT ON 2LNC, DENIES SOB OR CHEST PAIN. NO FURTHER NEEDS. CENTRAL LINE PATENT, BLOOD RETURN NOTED. CALL LIGHT IN REACH.
--- NOTE | 2018-07-14 22:25 | NUR ---
VITALS AND I&OS DONE AND CHARTED. PT IS IRRITATED THAT IM DOING VITALS AGAIN. BEDSIDE TABLE AND CALL LIGHT IN REACH.
--- NOTE | 2018-07-14 23:30 | NUR ---
PT RESTING IN BED, EYES CLOSED, RR EVEN AND UNLABORED. PT ON 2LNC, O2 SAT AND HR WNL. CALL LIGHT IN REACH.
--- NOTE | 2018-07-15 00:42 | NUR ---
per pt request i brought him a sand box with chips. emptied his urinal and charted it.
--- NOTE | 2018-07-15 01:13 | NUR ---
PT AWAKE IN BED WATCHING TELEVISION ON PHONE. PT ON 2LNC, O2 SAT 94%, HR 77. PT DENEIS NEEDS AT THIS TIME, CALL LIGHT IN REACH.
--- NOTE | 2018-07-15 03:30 | NUR ---
ASSESSMENT COMPLETE. NO NEW CONCERNS. PT A/OX4.SCHEDULED SOLU-MEDROL GIVEN. CENTRAL LINE PATENT. BLOOD RETURN NOTED. PT DENIES PAIN, STATES "I JUST WANT TO SLEEP". NO FURTHER NEEDS, CALL LIGHT IN REACH.
--- NOTE | 2018-07-15 06:46 | NUR ---
PT HAD A GOOD NIGHT, BUT WAS VERY IRRITABLE THROUGHOUT SHIFT. PT A/OX4, DENIES PAIN. PT REFUSED LOVENOX AND AM VS. PT HAS CENTRAL LINE, BLOOD RETURN NOTED AND IS PATENT. PT ON REGULAR DIET, TOLERATING WELL, NO NAUSEA.
--- NOTE | 2018-07-15 07:20 | NUR ---
REPORT RECEIVED FROM UZMA GAMBLE AT THIS TIME. PATIENT REMAINS ASLEEP AND ON OXYGEN AT 2L PER NC. BED IN THE LOW POSITION AND CALL LIGHT WITHIN REACH.
--- NOTE | 2018-07-15 08:30 | NUR ---
PATIENT GIVEN A WARM BLANKET AT THIS TIME, CENTRAL LINE HEPRIN LOCKED AFTER SOLUMEDROL GIVEN. PATIENT ATE 50% OF HIS BREAKFAST AND WANTS THE REST OF THE TRAY LEFT TO FINISH IT LATER.
--- NOTE | 2018-07-15 11:06 | NUR ---
PATIENT RESTING ON THE LEFT LATERAL SIDE AT THIS TIME, NO C/O SOB OR PAIN AT THIS TIME
--- NOTE | 2018-07-15 12:14 | NUR ---
YOJANA AND THIS RN ATTEMPTED TO AMBULATE PATIENT AT THIS TIME AND HE REFUSED, STATES THAT HE WILL WALK AFTER HE EATS LUNCH.
--- NOTE | 2018-07-15 13:31 | NUR ---
PATIENT AMBULATED AROUND THE NURSES STATION ONCE WITH RN, HE REFUSED NEB TREATMENT DOCTOR AKASH NOTIFIED.
--- NOTE | 2018-07-15 14:03 | NUR ---
PATIENT AMBULATED AROUND THE NURSES STATION ONCE BY HIMSELF ON RA, SATURATIONS STAYED AT 94%. HE DENIES ANY SOB AT THIS TIME. CENTRAL LINE DRESSING REINFORCED WITH TAPE THE EDGES ARE STARTING TO PEEL UP.
--- NOTE | 2018-07-15 15:06 | NUR ---
PATIENT UP AMBULATING THE HALLWAY BY HIMSELF AT THIS TIME, HE STILL DENIES ANY SOB OR PAIN.
--- NOTE | 2018-07-15 15:13 | NUR ---
SO FAR THE PATIENT HAS DONE 5 LAPS AROUND MED SURG.
--- NOTE | 2018-07-15 16:42 | NUR ---
I ASKED PATIENT IF HE WANTED TO TAKE A SHOWER AND HE SAID NO. I WILL TRY ONE MORE TIME WHEN I GO IN AND GET HIS VITALS.
--- NOTE | 2018-07-15 17:58 | NUR ---
PATIENT AGREED TO DO HIS OWN BED BATH THIS EVENING, HE HAS AMBULATED IN THE HALLWAY ON RA 5 TIMES AND HAD NO C/O SOB. PATIENTS SATURATION ON RA MAINTAINED ABOVE 90% ON RA. HE IS TOLERATING A REGULAR DIET AND DENIES OTHER NEEDS AT THIS TIME.
--- NOTE | 2018-07-15 19:18 | NUR ---
SHIFT REPORT RECEIVED FROM DAYSHIFT RN AT BEDSIDE. PT RESTING IN BED, EYES CLOSED, RR EVEN AND UNLABORED. CALL LIGHT IN REACH.
--- NOTE | 2018-07-15 20:43 | NUR ---
ASSESMENT COMPLETE. PT QUIET BUT FOLLOWS COMMANDS APPROPERIATELY. CENTRAL LINE PATENT, BLOOD RETURN NOTED. 5CM EXPOSED. SCHEDULED MEDICATIONS GIVEN, PT REFUSED LOVENOX. CALL LIGHT IN REACH, CPOX IN PLACE, PT ON RA, O2 SAT 92%, HR 68. CALL LIGHT IN REACH.
--- NOTE | 2018-07-15 21:00 | NUR ---
SANDWICH PUT IN REFRIGERATOR FOR LATER PER PT REQUEST.
--- NOTE | 2018-07-15 21:20 | NUR ---
patient asked for his sandwich and a cola with ice.
--- NOTE | 2018-07-15 21:31 | NUR ---
REPLACED FINGER PROBE ON CPOX. PT DENIES FURTHER NEEDS.
--- NOTE | 2018-07-15 22:49 | NUR ---
patient asked for the rest of his sandwich, bedside table and call light within reach.
--- NOTE | 2018-07-16 00:49 | NUR ---
PT RESTING IN BED, EYES CLOSED, RR EVEN AND UNLABORED. PT ON RA, O2 SAT 90%, HR WNL. CALL LIGHT IN REACH.
--- NOTE | 2018-07-16 01:02 | NUR ---
PATIENT REQUSTED A COLA AND WARM BLANKETS. BEDSIDE TABLE AND CALL LIGHT WITHIN REACH.
--- NOTE | 2018-07-16 05:49 | NUR ---
ASSESSMENT COMPLETE. PT A/OX4, DENIES PAIN. DRESSING TO CENTRAL LINE COMPLETED WITH HELP FROM TERMITE TREATER HELPERMAVIS MCCALLUM. STERILE TECHNIQUE MAINTAINED, CHLORAPREP USED TO CLEAN SKIN. 5CM EXPOSED PRIOR TO DRESSING CHANGE WELL AFTER DRESSING CHANGE. LUNCH BOX PROVIDED PER PT REQUEST. VSS. INTAKE AND OUTPUT RECORDED. CALL LIGHT IN REACH.
--- NOTE | 2018-07-16 06:05 | NUR ---
PT HAD OKAY NIGHT, SLEPT ON AND OFF. PT A/OX4, IRRITABLE AT BASELINE. REGULAR DIET, TOLERATING WELL, NO NAUSEA. PT AMBULATES SBA. VOIDING QS, NO BM THIS SHIFT. PRN DRESSING CHANGED COMPLETED, 5CM EXPOSED BEFORE AND AFTER DRESSING CHANGE, PT TOLERATED WELL. SCHEDULED NEBS AND SOLU-MEDROL.
--- NOTE | 2018-07-16 07:21 | NUR ---
PATIENT REPORT RECEIVED FROM UZMA GAMBLE AT THIS TIME. PATIENT REMAINS ON RA AND HAS NO C/O SOB AT THIS TIME.
--- NOTE | 2018-07-16 09:30 | NUR ---
CENTRAL LINE DC'D IN THE RIGHT JUGULAR, GAUZE AND PETROLEUM JELLY APPLIED, DOCTOR AKASH HAS BEEN IN AND TALKED TO THE PATIENT HE DENIES ANY FURTHER QUESTIONS OR CONCERNS.
[2018-07-16] MEDS ORDERED: IPRAT-ALBUT 0.5-3 ML INH (09:39)
[2018-07-16] MEDS ORDERED: PREDNISONE20 MG PO (09:40)
--- NOTE | 2018-07-16 09:41 | NUR ---
PATIENT HAS ASKED FOR SEVERAL WARM BLANKETS, HAS NOT BEEN PLEASANT TO TALK TO, DOES NOT COMMUNICATE WELL, PATIENT IS TO D/C HOME TODAY
--- NOTE | 2018-07-16 10:04 | NUR ---
PATIENT GIVEN D/C INSTRUCTIONS QUESTIONS ANSWERED AND PANTS PROVIDED FOR HIM AT THIS TIME.
== END 2018-07-16 10:15 | disposition home or self-care (01) | DRG 189 ==
LOC: ED 19:11 → CCU 22:35 → MS 07-13 12:00
PROVIDERS: ADMIT Internal Medicine
PROC: 02HV33Z Insertion of Infusion Device into Superior Vena Cava, Percutaneous Approach (ICD-10-PCS; principal; 2018-07-11)
PROC: 5A09357 Assistance with Respiratory Ventilation, Less than 24 Consecutive Hours, Continuous Positive Airway Pressure (ICD-10-PCS; 2018-07-11)
DX: J96.02 Acute respiratory failure with hypercapnia (principal); J45.51 Severe persistent asthma with (acute) exacerbation; F17.200 Nicotine dependence, unspecified, uncomplicated; L20.9 Atopic dermatitis, unspecified; F19.10 Other psychoactive substance abuse, uncomplicated; Z79.899 Other long term (current) drug therapy; Z91.19 Patient's noncompliance with other medical treatment and regimen; Z59.0 Homelessness
CPT/HCPCS: 36600; 71045; 80053; 82803; 83036; 83735; 85025; 94640; 94644; 94660; 94667; 94668; 94762; 96372; 99285-25; J1650; J2920; J2930; J3475; J7120; J7512

== ENCOUNTER 2018-07-22 07:45 | Emergency (ER) | payer OTHER ==
[~2018-07-22] VITALS: Ht 167.6 cm; Wt 71.7 kg
--- OUTSIDE RECORDS SUMMARY | 2018-07-22 07:48 | XMS ---
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 Care History Medical/Surgical 05/31/2018 [facility] -\T\middot; PATIENT HAS NOT SEEN PCP DR COHEN FOR A COUPLE OF YEARS. - THERE IS NO WAY OF CONTACTING PATIENT, NO NUMBER ON RECORD FOR CONTACT. - PCP OFFICE HAS TRIED TO CONTACT PATIENT AND NO RETURN CALLS. - PATIENT WAS PLACED ON A VENT IN THE PAST SO PATIENT ASTHMATIC SYMPTOMS SHOULD BE ADDRESSED RIGHT AWAY. 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 - PLEASE REFER PATIENT TO [facility] FOR NON EMERGENT MEDICAL NEEDS. - [facility] CAN SEE PATIENTS SAME DAY FOR APTS IF PATIENT CALLS FIRST THING IN THE MORNING. E.D. VISIT COUNT (12 MO.) 1 [facility] Maciel 6 [facility] TOTAL 7 NOTE: Visits indicate total known visits. ED/UCC VISIT TRACKING (12 MO.) 07/22/2018 07:45 [facility] [place] TYPE: Emergency COMPLAINT: - CHEST PAIN 07/11/2018 19:12 [facility] [place] TYPE: Emergency COMPLAINT: - SOB 06/11/2018 06:25 [facility] [place] TYPE: Emergency COMPLAINT: - SOB 05/30/2018 14:56 [facility] [place] TYPE: Emergency COMPLAINT: - DIFFICULTY BREATHING DIAGNOSES: - Unspecified asthma with (acute) exacerbation - Nicotine dependence, unspecified, uncomplicated - Other senior care (current) drug therapy 01/16/2018 18:30 [facility] [place] TYPE: Emergency DIAGNOSES: - Unspecified psychosis not due to a substance or known physiological condition - Psych Evaluation 11/14/2017 15:04 [facility] [place] TYPE: Emergency COMPLAINT: - SOB 10/24/2017 11:34 [facility] [place] TYPE: Emergency COMPLAINT: - SOB INPATIENT VISIT TRACKING (12 MO.) 07/11/2018 22:35 [facility] [place] TYPE: Medical Surgical COMPLAINT: - RESPIRATORY FAILURE DIAGNOSES: - Other senior care (current) drug therapy - Patient's noncompliance with other medical treatment and regimen - Homelessness - Other psychoactive substance abuse, uncomplicated - Atopic dermatitis, unspecified - Other psychoactive substance abuse, uncomplicated - Patient's noncompliance with other medical treatment and regimen - Atopic dermatitis, unspecified - Nicotine dependence, unspecified, uncomplicated - Severe persistent asthma with (acute) exacerbation - Shortness of breath - Other senior care (current) drug therapy - Acute respiratory failure with hypercapnia - Severe persistent asthma with (acute) exacerbation - Homelessness - Acute respiratory failure with hypercapnia - Nicotine dependence, unspecified, uncomplicated 06/11/2018 06:26 [facility] [place] TYPE: Medical Surgical COMPLAINT: - ASTHMA EXACERBATION DIAGNOSES: - Severe persistent asthma with (acute) exacerbation - Other senior care (current) drug therapy - Nicotine dependence, cigarettes, [...] Other stimulant abuse, in remission - Other senior care (current) drug therapy 10/24/2017 15:[address] 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
[2018-07-22] MEDS ORDERED: PREDNISONE20 MG PO (09:28)
[2018-07-22] MEDS ORDERED: LEVAQUIN750 MG PO (09:28)
--- NOTE | 2018-07-22 11:32 | EKG ---
[facility] [address] [place], [place] [address] Signed Normal sinus rhythm Normal ECG No previous ECGs available Confirmed by SHAHID WOODS DO ([id number]) on 07/22/2018 11:32:30 AM Electronically Signed By: SHAHID WOODS DO 07/22/18 1132 PATIENT NAME: MEGA PACHECO Electrocardiogram DATE OF : [birth year] PHYSICIAN: SHAHID WOODS DO REPORT #: [id number] REPORT IS CONFIDENTIAL AND NOT TO BE RELEASED WITHOUT AUTHORIZATION
== END 2018-07-22 09:45 | disposition home or self-care (01) ==
LOC: ED 07:45
DX: J18.9 Pneumonia, unspecified organism (principal); R07.81 Pleurodynia; J45.909 Unspecified asthma, uncomplicated; F17.200 Nicotine dependence, unspecified, uncomplicated; Z79.899 Other long term (current) drug therapy
CPT/HCPCS: 71046; 93005; 93010; 96374; 99285-25; J1885; J7512

== ENCOUNTER 2019-07-22 21:19 | Inpatient (IN) | payer OTHER ==
[~2019-07-22] VITALS: Ht 167.6 cm; Wt 77.6 kg
[~2019-07-22 21:19] MED LIST changes: +LEVAQUIN750 MG PO
--- OUTSIDE RECORDS SUMMARY | 2019-07-22 21:22 | XMS ---
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 Care History Medical/Surgical 05/31/2018 [facility] -\T\middot; PATIENT HAS NOT SEEN PCP DR COHEN FOR A COUPLE OF YEARS. - THERE IS NO WAY OF CONTACTING PATIENT, NO NUMBER ON RECORD FOR CONTACT. - PCP OFFICE HAS TRIED TO CONTACT PATIENT AND NO RETURN CALLS. - PATIENT WAS PLACED ON A VENT IN THE PAST SO PATIENT ASTHMATIC SYMPTOMS SHOULD BE ADDRESSED RIGHT AWAY. 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 - PLEASE REFER PATIENT TO [facility] FOR NON EMERGENT MEDICAL NEEDS. - [facility] CAN SEE PATIENTS SAME DAY FOR APTS IF PATIENT CALLS FIRST THING IN THE MORNING. E.D. VISIT COUNT (12 MO.) [address] [facility] TOTAL 2 NOTE: Visits indicate total known visits. ED/UCC VISIT TRACKING (12 MO.) 07/22/2019 21:19 [facility] [place] TYPE: Emergency COMPLAINT: - SOB 07/22/2018 07:45 [facility] [place] TYPE: Emergency COMPLAINT: - CHEST PAIN DIAGNOSES: - Pleurodynia - Other extermination supervisor (current) drug therapy - Unspecified asthma, uncomplicated - Chest pain, unspecified - Pneumonia, unspecified organism - Nicotine dependence, unspecified, uncomplicated INPATIENT VISIT TRACKING (12 MO.) No inpatient visits to display in this time frame [email or web address]
--- NOTE | 2019-07-23 00:28 | NUR ---
ADMIT TO CCU PER STRETCHER FROM ED. ABLE TO AMB FROM STRETCHER TO BED. VOIDED IN BR. STATES IS HUNGRY AND THIRSTY. DRANK 2 SODAS AND ATE SANDWICH AND CHIPS. IS FEELING A LITTLE MORE SOB NOW AND WANTING TO SLEEP. REQUESTING NEB NOW. RT CALLED. IS USING ASSESSORY MUSCLES. HAS FAINT INSP WHEEZES THROUGHOUT WITH SCATTERED EXP WHEEZES.
--- NOTE | 2019-07-23 01:47 | NUR ---
LAYING ON SIDE EYES CLOSED. RR REMAINS 20'S AND SL LABORED.
--- NOTE | 2019-07-23 03:36 | NUR ---
SLEEPING OFF AND ON. EVEN WHEN ASLEEP USED ACCESSORY MUSCLES. HAS LOUD EXP WHEEZE THAT CAN BE HEARD FROM THE DOOR. PT FINISHED EATING GRANOLA BAR AND APPLESAUCE THAT WAS IN SANDWICH BOX. RT IN TO GIVE NEB, PT MARTHA WELL. GIVEN SODA PER REQUEST.
--- NOTE | 2019-07-23 05:11 | NUR ---
RESP ARE LESS LABORED NOW. RESTING WELL.
--- NOTE | 2019-07-23 06:05 | NUR ---
AWAKENED FOR LAB. SOLUMEDROL GIVEN. REQUESTING NEB TX. RT CALLED.
--- NOTE | 2019-07-23 07:54 | NUR ---
PT SLEEPING SOUNDLY, O2 SATS ARE 90% OR HIGHER ON ROOM AIR. CALL LIGHT IS WITHIN REACH.
--- NOTE | 2019-07-23 08:55 | NUR ---
IV SITE IS INTACT, NO REDNESS OR SWELLING NOTED. PT DENIES PAIN AT SITE, IV FLUIDS INFUISING EASILY.
--- NOTE | 2019-07-23 10:48 | NUR ---
FAMILY HAS CALLED FOR AN UPDATE ON PT STATUS, PT GIVES VERBAL OK TO SHARE INFORMATION. BRIEF UPDATE GIVEN OVER PHONE TO PT'S GRANDMOTHER.
--- NOTE | 2019-07-23 11:11 | EKG ---
[facility] [address] [place] [address] Signed Normal sinus rhythm Biatrial enlargement Rightward axis Pulmonary disease pattern Abnormal ECG When compared with ECG of 22-JUL-2018 07:49, No significant change was found Confirmed by SHAHID WOODS DO ([id number]) on 07/23/2019 11:10:47 AM Electronically Signed By: SHAHID WOODS DO 07/23/19 1111 PATIENT NAME: MEGA PACHECO Electrocardiogram DATE OF : [birth year] PHYSICIAN: SHAHID WOODS DO REPORT #: [id number] REPORT IS CONFIDENTIAL AND NOT TO BE RELEASED WITHOUT AUTHORIZATION
--- NOTE | 2019-07-23 11:13 | NUR ---
PT IS AWAKE AND ALERT X4, VISITING WITH FAMILY AT THE BEDSIDE. PT ALSO GETTING NEB TREATMENT AT THIS TIME.
--- NOTE | 2019-07-23 12:21 | NUR ---
PT SITTING UP IN BED EATING LUNCH, DENIES PAIN, NAUSEA, AND SOB. PT DOES REPORT SOME SOB WITH AMBULATION. PT IV SITE IS INTACT, NO REDNESS OR SWELLING NOTED, FLUIDS INFUSEING EASILY. PT REMAINS ALERT AND ORIENTED X4.
--- NOTE | 2019-07-23 13:04 | NUR ---
PT ABLE TO MARTHA 50% OF LUNCH SITTING UP IN BED. PT REQUESTS NEB TREATMENT, CALLED RESP THERAPY, KB NOW GIVING NEB. PT REMAINS ALERT AND ORIENTED X4, DENIES PAIN AND NAUSEA. ALL VITALS ARE WNL.
--- NOTE | 2019-07-23 13:50 | NUR ---
full report given to Melissa GAMBLE on med/surg via phone, all questions answered.
--- NOTE | 2019-07-23 14:00 | NUR ---
Patient arrives to unit via rolling chair on RA. Transfers to bed independently. LR bolus infusing at 200 mls/hr. Assessment complete. Patient up to toilet independently, voids. Returns to bed, warm blankets provided. Denies further needs at this time, call light within reach.
--- NOTE | 2019-07-23 14:05 | NUR ---
pt transfered to room 116 on med/surg via chair. all personal belongings went with pt. pt crystal well.
--- NOTE | 2019-07-23 14:30 | NUR ---
Patient requests neb treatments, states "my lungs feel tight." RT called and responds to room. Unable to administer neb treatment until 1500 but ice water is retrieved for patient and 3LNC is initiated. SpO2 of 91% and climbs to 93% with 3LNC. Will continue to monitor.
--- NOTE | 2019-07-23 15:00 | NUR ---
RT in room administering neb treatment.
--- NOTE | 2019-07-23 15:06 | NUR ---
MED REC COMPLETED.
--- NOTE | 2019-07-23 16:01 | NUR ---
Patient sitting up in bed watching tv. Patient requests sprite which is delivered. Patient on 3LNC with an SpO2 of 94%. Breaths are even and unlabored. LR running at 175 mls/hr. Denies further needs at this time. Call light within reach.
--- NOTE | 2019-07-23 17:15 | NUR ---
Patient sitting up in bed watching tv. Dinner delivered. LR running at 100 mls/hr. Warm blankets provided. Denies further needs, call light within reach.
--- NOTE | 2019-07-23 18:15 | NUR ---
Patient requests PRN albuterol tx, RT called. RT responds to room, provides treatment for patient. Warm blankets provided, vital signs taken. LR running at 100 mls/hr. Denies further needs, call light within reach.
--- NOTE | 2019-07-23 20:43 | NUR ---
FARM MACHINE TENDER ROUNDING NOTE. PT UTILIZES CALL LIGHT, REQUESTS WARM BLANKETS. PROVIDED. PT DENIES FURTHER NEEDS, QUESTIONS, OR CONCERNS. CALL LIGHT IN REACH. WHITE BOARD UDPATED.
--- NOTE | 2019-07-23 21:19 | NUR ---
PATIENT IS RESTING VITALS TAKEN CALL LIGHT IN REACH AND FRESH WATER WAS GIVEN.
--- NOTE | 2019-07-23 21:24 | NUR ---
PT IN BED, AWAKE, COOP WITH ASSESSMENT, ON CPOX, SATS 92%. ON oXYGEN. C/O INSOMNIA, DR WOODS NOTIFIED, NEW ORDERS RECEIVED FOR MELATONIN 5MG PO/HSPRN. IVF INFUSING, DRY SKIN AT BASELINE, NO OTHER REQUESTS
--- NOTE | 2019-07-24 03:15 | NUR ---
PATIENT IS AWAKE WENT TO THE THE BATHROOM. AND IS SETTING UP EATING A SANDWICH. CALL LIGHT IN REACH AND FRESH WATER GIVEN.
--- NOTE | 2019-07-24 04:49 | NUR ---
Pt has slept most of this shift. On 2L NC, CPOX sats at 90-93%. Continues to have coarse, exp wheezing lung sounds. slight SOB with exertion notd when standing up to side of bed urinating,. HAs had several snacks at his requests. tolerating well. IVF infusing w/o problems, Received Solumedrol IV. Skin much improved from last admission, no c/o pain. Currenlty back in bed, resting, repositins self in bed
--- NOTE | 2019-07-24 07:40 | NUR ---
BEDSIDE REPORT RECEIVED FROM ANA GAMBLE. WHITE BOARD UPDATED. ALL QUESTIONS ANSWERED. PATIENT SLEEPING ON LEFT SIDE. LR INFUSING INTO RAC AT 100ML/HR. NO NEEDS AT THIS TIME.
--- NOTE | 2019-07-24 08:20 | NUR ---
Spoke with Adair. He currently lives on the [facility] [facility]. In [place] visiting his family. Staying with his sister. He did not bring his nebulizer with him. Plans to dc to home with his sister, stated my concern as this is where he had contact with the dog, setting off an asthma attack. He states he will call his mom and cousin to see is he can stay with them on DC. Will return home on Wednesday. Dr. Ramirez updated.
--- NOTE | 2019-07-24 09:29 | NUR ---
SALINE LOCKED IV. REMOVED CPOX. WILL CALL WHEN READY FOR A SHOWER LATER.
--- NOTE | 2019-07-24 13:46 | NUR ---
PT RESTING IN L SIDE. PT AWOKE TO MY VOICE, AM VERY FAMILIAR WITH PT. HAD GOOD VISIT-HE WAS PROUD TO TELL ME HE IS SOBER FOR 1 YR. CONGRATULATED HIM AND GAVE MORE ENCOURAGEMENT. HE WAS PROUD, SAID HE IS WORKING TO STAY THAT WAY. PT THEN REQUESTED PRAYER. WILL FOLLOW NEEDED
--- NOTE | 2019-07-24 14:09 | NUR ---
HOURLY ROUNDING DONE. PATIENT ASLEEP AT THIS TIME.
--- NOTE | 2019-07-24 17:57 | NUR ---
ROOM AIR TODAY. WHEEZING THROUGHOUT LUNGS. SALINE LOCKED. NEBS Q4H/SCHEDULED. SOLU MEDROL IV. SOB WITH EXERTION IMPROVING. WOULD LIKE SHOWER BEFORE BED TONIGHT. NAPPED MOST OF AFTERNOON/EVENING. APPETITE GOOD. MAY DISCHARGE TOMORROW.
--- NOTE | 2019-07-24 19:20 | NUR ---
BEDSIDE REPORT RECEIVED FROM MAVIS KRAFT. pt RESTING IN BED WATCHING TV. DINNER HEATED UP FOR pt. REQUESTING SHOWER THIS EVENING, VERBALIZES UNDERSTANDING TO USE CALL LIGHT FOR IV TO BE WRAPPED UP FOR SHOWER.
--- NOTE | 2019-07-24 21:00 | NUR ---
ROUNDED CHARGE. PROVIDED PATIENT WITH TOWELS TO SHOWER. IV WRAPPED. PATIENT WILL CALL WHEN DONE WITH SHOWER.
--- NOTE | 2019-07-24 22:15 | NUR ---
ASSESSMENT COMPLETE. EXPIRATORY WHEEZES HEARD THROUGHOUT ALL LUNG LOBES, COARSE BLL. pt DENIES SOB. IV SL WNL. SANDWICH BOX PROVIDED REQUESTED. CALL LIGHT IN REACH.
--- NOTE | 2019-07-24 22:27 | NUR ---
PATIENT IS UP AND TOOK A SHOWER, PATIENT IS iNDEPENDENT IN HIS ROOM VITALS DONE FRESH WATER GIVEN CALL LIGHT IN REACH
--- NOTE | 2019-07-25 00:05 | NUR ---
pt RESTING IN BED. APPEARS TO BE SLEEPING. BREATHING UNLABORED.
--- NOTE | 2019-07-25 03:31 | NUR ---
CHECKED ON pt. RESTING IN BED WITH EYES CLOSED. BREATHING EQUAL AND UNLABORED. LIGHTS OFF IN ROOM.
--- NOTE | 2019-07-25 05:31 | NUR ---
pt ON RA. VSS. SLEEPING OFF AND ON THIS SHIFT, PRN SLEEP MEDICATION. SHOWER THIS SHIFT. IV SL. INDEPENDENT IN ROOM. USING CALL LIGHT APPROPRIATELY.
--- NOTE | 2019-07-25 06:29 | NUR ---
pt ASSESSMENT COMPLETE. EXPIRATORY WHEEZES HEARD THROUGHOUT ALL LUNG LOBES. RT PHONED FOR PRN BREATHING TREATMENT. STATES SOB AFTER AMBULATING TO RESTROOM. IV NOT PATENT IN RIGHT ARM, D/C'D WNL. NEW PIV STARTED LEFT FOREARM. BREAKFAST ORDER TAKEN. VSS.
--- NOTE | 2019-07-25 07:15 | NUR ---
Report received, orders acknowledged. Patient sleeping in bed, respirations even and unlabored. Call light within reach.
--- NOTE | 2019-07-25 09:20 | NUR ---
Patient sitting up in bed watching tv. Denies enoxaparin injection, states "I will ambulate the halls." Assessment complete. 100% of breakfast eaten. Vitals taken. Denies further needs, call light within reach.
--- NOTE | 2019-07-25 10:00 | NUR ---
Patient reports pain and slight amount of pus surrounding IV site that was D/C'd this morning. Will update Dr. Ramirez.
--- NOTE | 2019-07-25 10:07 | NUR ---
PATIENT UP WALKING AROUND IN ROOM, IND. CALL LIGHT IN REACH. NO FURTHER NEEDS AT THIS TIME.
--- NOTE | 2019-07-25 10:15 | NUR ---
Spoke with Adair. He plans to dc to his sister's today. Denies need for discharge. States he will be wearing a mask and using steroid until he goes home on Wednesday to . Pt denies further needs to go home. States he has access to a nebulizer at his sisters house.
[2019-07-25] MEDS ORDERED: ADVAIR 250-501 EACH INH (11:02)
[2019-07-25] MEDS ORDERED: PREDNISONE20 MG PO (11:04)
[2019-07-25] MEDS ORDERED: DOXYCYCLINE HY100 MG PO (11:13)
[2019-07-25] MEDS ORDERED: LORATADINE10 MG PO (11:19)
--- NOTE | 2019-07-25 12:20 | NUR ---
Pharmacy in room with patient, discharge teaching performed with new inhaler. IV solumedrol given prior to discharge, neb tx administered. Lunch delivered. IV D/C'd.
--- NOTE | 2019-07-25 12:38 | NUR ---
Discharge instructions given. Patient verbalizes understanding to follow up with a PCP once home. All questions and concerns answered. All patient belongings collected. IV D/C'd, vital signs taken. Patient leaves unit via wheelchair with nursing staff.
--- NOTE | 2019-07-25 13:40 | NUR ---
MET WITH PT, HE WAS SITTING IN CHAIR-HAVING A BREATHING TREATMENT GETTING READY FOR DC. 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 HE THANKED ME FOR COMING BY. GAVE A BLESSING AND WILL FOLLOW NEEDED
--- NOTE | 2019-07-25 15:06 | NUR ---
1020: Based on giudlines set forth by the global guidelines for asthma managment and prevention it is recomended that pt be discharged with an inhaled ICS for maintanence of asthma symptoms. This request was communicated to dr. Ramirez.
== END 2019-07-25 12:38 | disposition home or self-care (01) | DRG 203 ==
LOC: ED 21:19 → CCU 21:20 → MS 07-23 14:15
PROVIDERS: ADMIT Student in an Organized Health Care Education/Training Program
DX: J45.51 Severe persistent asthma with (acute) exacerbation (principal); F17.200 Nicotine dependence, unspecified, uncomplicated; L30.9 Dermatitis, unspecified; Z79.899 Other long term (current) drug therapy
CPT/HCPCS: 36415; 71045; 80048; 83735; 85025; 93005; 93010; 94640; 94644; 94760; 94762; 96374; 96375; 96376; 99291; 99406; G0378; J2930; J3475; J7121

== ENCOUNTER 2020-08-02 13:38 | Emergency (ER) | payer OTHER ==
[~2020-08-02] VITALS: Ht 152.4 cm; Wt 89.4 kg
[~2020-08-02 13:38] MED LIST changes: +ADVAIR 250-501 EACH INH; +DOXYCYCLINE HY100 MG PO; +LORATADINE10 MG PO
--- OUTSIDE RECORDS SUMMARY | 2020-08-02 13:40 | XMS ---
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 PHONE: [phone] Venus has no Care Guidelines for this patient. Care History Medical/Surgical 05/31/2018 [facility] -\T\middot; PATIENT HAS NOT SEEN PCP DR COHEN FOR A COUPLE OF YEARS. - THERE IS NO WAY OF CONTACTING PATIENT, NO NUMBER ON RECORD FOR CONTACT. - PCP OFFICE HAS TRIED TO CONTACT PATIENT AND NO RETURN CALLS. - PATIENT WAS PLACED ON A VENT IN THE PAST SO PATIENT ASTHMATIC SYMPTOMS SHOULD BE ADDRESSED RIGHT AWAY. - PATIENT IS YELLOWHAWK ELIGIBLE - PLEASE REFER PATIENT TO [facility] FOR NON EMERGENT MEDICAL NEEDS. - [facility] CAN SEE PATIENTS SAME DAY FOR APTS IF PATIENT CALLS FIRST THING IN THE MORNING. E.D. VISIT COUNT (12 MO.) 1 SINGH Steen TOTAL 1 NOTE: Visits indicate total known visits. ED/UCC VISIT TRACKING (12 MO.) 08/02/2020 13:38 SING[facility]oma[facility]on [place] TYPE: Emergency COMPLAINT: - SKIN PROBLEM INPATIENT VISIT TRACKING (12 MO.) No inpatient visits to display in this time frame [id number]
[2020-08-02] MEDS ORDERED: CEPHALEXIN500 M1 PO (14:13)
== END 2020-08-02 14:25 | disposition home or self-care (01) ==
LOC: ED 13:38
DX: L30.9 Dermatitis, unspecified (principal); L08.9 Local infection of the skin and subcutaneous tissue, unspecified; J45.909 Unspecified asthma, uncomplicated; F17.200 Nicotine dependence, unspecified, uncomplicated; Z79.899 Other long term (current) drug therapy

== ENCOUNTER 2020-09-03 07:51 | Emergency (ER) | payer OTHER ==
[~2020-09-03] VITALS: Ht 167.6 cm; Wt 89.4 kg
[~2020-09-03 07:51] MED LIST changes: +CEPHALEXIN500 M1 PO
--- OUTSIDE RECORDS SUMMARY | 2020-09-03 07:54 | XMS ---
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 Care History Medical/Surgical 08/06/2020 [facility] - PATIENT IS TODDCHADShari NAOMI, \T\middot;\T\nbsp; PLEASE REFER PATIENT TO [facility] FOR NON EMERGENT MEDICAL NEEDS. \T\middot;\T\nbsp; [facility] CAN SEE PATIENTS SAME DAY FOR APTS IF PATIENT CALLS FIRST THING IN THE MORNING. 05/31/2018 [facility] -\T\middot; PATIENT HAS NOT SEEN [...] YELLOWHAWK ELIGIBLE - PLEASE REFER PATIENT TO [facility] FOR NON EMERGENT MEDICAL NEEDS. - [facility] CAN SEE PATIENTS SAME DAY FOR APTS IF PATIENT CALLS FIRST THING IN THE MORNING. E.D. VISIT COUNT (12 MO.) 2 [facility] TOTAL 2 NOTE: Visits indicate total known visits. ED/UCC VISIT TRACKING (12 MO.) 09/03/2020 07:51 SINGH Sainz [place] TYPE: Emergency COMPLAINT: - ASTHMA ALLERGIES 08/02/2020 13:38 SINGH Sainz [place] TYPE: Emergency COMPLAINT: - SKIN PROBLEM DIAGNOSES: - Dermatitis, unspecified - Unspecified asthma, uncomplicated - Local infection of the skin and subcutaneous tissue, unspecified - Nicotine dependence, unspecified, uncomplicated - Other pe teacher (current) drug therapy INPATIENT VISIT TRACKING (12 MO.) No inpatient visits to display in this time frame [id number]
[2020-09-03] MEDS ORDERED: TRIANEX430 GM TOP (08:19)
[2020-09-03] MEDS ORDERED: PREDNISONE20 MG PO (08:19)
== END 2020-09-03 08:48 | disposition home or self-care (01) ==
LOC: ED 07:51
DX: J45.901 Unspecified asthma with (acute) exacerbation (principal); F17.200 Nicotine dependence, unspecified, uncomplicated; Z79.899 Other long term (current) drug therapy
CPT/HCPCS: 94640; 99284-25; 99406; J7512

== ENCOUNTER 2021-08-23 03:10 | Inpatient (IN) | payer OTHER ==
[~2021-08-23] VITALS: Ht 167.6 cm; Wt 67.9 kg
[~2021-08-23 03:10] MED LIST changes: +TRIANEX430 GM TOP
--- NOTE | 2021-08-23 06:49 | NUR ---
PT ARRIVED TO UNIT, VITAL SIGNS OBTAIN AND WEIGHT, FOCUSED RESP ASSESSMENT COMPLETED, WHEEZES PRESENT (INSP AND EXP), PT SHORT OF BREATH WITH ANY ACTIVITY, HOB RAISED TO 60 DEGREES, SPEAKING IN SHORT SENTENCES HOWEVER REQUESTING TO EAT, PT EDUCATED THAT DUE TO THE ENERGY IT TAKES TO EAT, ITS BEST TO WAIT UNTIL HIS BREATHING IS MORE UNDER CONTROL, ETCO2 ON PT, ETCO2 29, HISTORY OBTAINED, WILL REPORT TO DAY SHIFT HEAD TO TOE ASSESSMENT NEEDS COMPLETED
--- NOTE | 2021-08-23 09:25 | NUR ---
DR. BUSTOS IN TO SEE PATIENT AT THIS TIME.
--- NOTE | 2021-08-23 09:32 | NUR ---
DR. BUSTOS WANTING PATIENT TO WEAR BIPAP FOR A WHILE THIS AM. RT CALLED AND PT UPDATED ON THIS AND IS AGREEABLE. PT IS MORE DROWSY NOW THAN HE WAS EARLIER THIS AM, BUT STILL WILL ANSWER QUESTIONS, BUT NOT STAYING AWAKE FULLY. CONTINUE TO MONITOR.
--- NOTE | 2021-08-23 09:52 | NUR ---
RT IN ROOM AT THIS TIME SETTING UP BIPAP. PT AGREEABLE TO WEAR THIS. CONTINUE TO MONITOR.
--- NOTE | 2021-08-23 11:05 | NUR ---
PATIENT USES CALL LIGHT AND STATES HE IS HUNGRY, WANTS HIS MEAL THAT WAS PROMISED HIM 4 HOURS AGO. HARD TO UNDERSTAND PATIENT, AND HE PULLS MASK OFF AND MAKES HIS WISHES KNOWN. RE-ORIENTED PATIENT THAT HE ATE BREAKFAST THIS AM, AND HE SETTLES DOWN. SNACK ORDERED FOR PATIENT AND PLAN OF CARE DISCUSSED. PATIENT STILL LIKING TO WEAR BIPAP AT THIS TIME. PT BROUGHT 3 WARM BLANKETS.
--- NOTE | 2021-08-23 11:47 | NUR ---
VBG DRAWN FROM IV SITE IN LEFT AC. PT STATES HE DOESN'T REMEMBER DR. BUSTOS SEEING HIM THIS AM. PT GIVEN MORE WARM BLANKETS, AND RT NOW IN ROOM TO GIVE BREATHING TX. PT AGREEABLE TO CONTINUE TO WEAR BIPAP TODAY. LUNG SOUNDS WERE CLEAR ON LAST AUSCULTATION. CONTINUE TO MONITOR. PT ATE 100% OF HIS SNACK, WHICH WAS A TURKEY SANDWICH BOX.
--- NOTE | 2021-08-23 13:41 | NUR ---
PATIENT OFF BIPAP AROUND 1320 TO EAT LUNCH. PT STATES HE IS FEELING BETTER OVERALL, BUT STILL SHOWS SIGNS OF RESP DISTRESS. RESTRACTIONS ARE STILL PRESENT, BUT NOT SEVERE EARLIER. MENTATION IS BETTER NOW THAN IT WAS A COUPLE OF HOURS AGO. PT IS LESS SOMNOLENT. VANICREAM APPLIED TO PATIENT'S ARMS AND HANDS, AND NECK. PT APPRECIATIVE OF THIS. PT AGREEABLE TO WEAR BIPAP AGAIN AFTER HIS FOOD SETTLES. CONTINUE TO MONITOR.
--- NOTE | 2021-08-23 15:18 | NUR ---
PATIENT EATS SNACK OF SANDWICH, AND THEN UP TO VOID AT BEDSIDE. PT BECOMES MORE SOB WITH THIS ACTIVITY AND TAKES BIPAP MASK OFF. PT THEN REQUESTING NEB TX. RT CALLED AND NOW IN ROOM GIVING NEB. WARM BLANKET PROVIDED PER RT. PT BACK ON BIPAP PER RT.
--- NOTE | 2021-08-23 18:55 | NUR ---
PATIENT CONTINUES TO HAVE RETRACTIONS, EXP AND INSP WHEEZING ON AND OFF. PT WEARING OXYMASK 10 L FOR HIS COMFORT. PT WEARS BIPAP FOR ONLY A COUPLE OF MINUTES BEFORE TAKING IT OFF. SP02 IS 100%. CONTINUE TO MONITOR CLOSELY. REPORT TO COTTON GROWER.
--- NOTE | 2021-08-23 19:42 | NUR ---
RECIEVED REPORT FROM DAY SHIFT, LABS AND ORDERS REVIEWED, EMAR REVIEWED, RN ASSESSED PT, HEAD TO TOE ASSESSMENT COMPLETED, PT STATES HES IRRITATED IN A RAISED VOICE WHEN ASKED HOW HE IS FEELING, WHEN ASKED WHY HE FEELS IRRITATED, HE YELLS BACK AT RN "WOULDNT YOU BE RIGHT NOW". THERAPUTIC COMMUNICATION ATTEMPTED HOWEVER PT APPEARS TIRED AND IS NOT WANTING TO ENGAGE IN CONVERSTATION RIGHT NOW. RT WITH PT DELIVERING A BREATHING TREATMENT, ETCO2 ATTACHED TO PT TO MONITOR CO2 LEVELS, WILL CONTINUE TO CLOSELY MONITOR PT, WITH FREQUENT FOCUSED RESPIRATORY ASSESSMENTS
--- NOTE | 2021-08-23 20:24 | NUR ---
PT PREVIOUSLY ON 10 L 02 VIA OXYMASK FOR COMFORT PER DAY SHIFT, RT AND RUGBY UNION FOOTBALLER RN APPLIED ETC02 NASAL CANNULA TO MONITOR CO2 LEVELS AND DECREASE OXYGEN AMOUNTS DUE TO PT NOT REQUIRING 10 L, PT CONTINUALLY TAKING OFF ETCO2 NASAL CANNULA HOWEVER IS MAINTAINING A SATURATION OVER 95%
--- NOTE | 2021-08-23 20:29 | NUR ---
PT CALLED, SITTING UPRIGHT, INCREASED RETRACTIONS, REQUESTING BREATHING TREATMENT AND YELLING AT RN TO TAKE HIS FOOD AWAY EXCEPT FOR HIS CHIPS AND WATER. RN TOOK AWAY FOOD AND EXPLAINED TO PT ITS INNAPPROPIATE TO YELL AT STAFF AND TO PLEASE STOP YELLING AT RN. RT CALLED FOR BREATHING TREATMENT. DURING WAIT FOR BREATHING TREATMENT, PT CALLED AGAIN STATING HE SAW RT WALK BY AND FELT THAT HE WAS BEING IGNORED, PT WAS EDUCATED THAT RT HAD TO REMOVE THE MEDICATION FROM ANOTHER ROOM AND HE WAS NOT BEING IGNORED. 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
--- NOTE | 2021-08-23 20:38 | NUR ---
DR BUSTOS CALLED, EKG LEADS KEEP FALLING OFF PT DUE TO HIS SKIN INTEGIRTY, ASKED IF IT WAS OKAY TO LEAVE LEADS OFF PT, DR BUSTOS STATED THATS FINE TO KEEP CARDIAC LEADS OFF TONIGHT
--- NOTE | 2021-08-23 22:39 | NUR ---
PT RESTING IN BED, ASSISTED PT WITH URINAL, PT ASKED TO HAVE PANTS CHANGED, SCRUB PANTS GIVEN TO PT, PT PLACED IN POSITION OF COMFORT, BLANKETS AND PILLOWS PLACED AROUND PT, STATED "I WANT TO FEEL LIKE IM IN THE WOMB". WARM BLANKET APPLIED, RT AND RN DISCUSSED PLAN OF CARE WITH PT, NEXT BREATING TREATMENT GOAL TIME OF MIDNIGHT, PT AGREEABLE, LIGHTS DIMMED AND DOOR SHUT TO ALLOW OPTIMAL REST
--- NOTE | 2021-08-24 01:43 | NUR ---
PT REQUESTED SANDWICH BOX, RN PROVIDED PT WITH SANDWICH BOX AND SODA PER PTS REQUEST, RN ENCOURAGED WATER INTAKE WELL
--- NOTE | 2021-08-24 01:55 | NUR ---
PT CALLED, REQUESTING BREATHING TREATMENT AND WARM BLANKET, WARM BLANKET APPLIED AND RT NOTIFIED
--- NOTE | 2021-08-24 02:17 | NUR ---
PT CALLED REQUESTING ANOTHER WARM BLANKET, EDUCATED PT ON CLUSTERING PT CARE. PT STATES HES COLD HOWEVER WHENEVER RN ENTERS ROOM, PT HAS TAKEN OFF HIS BLANKETS. BED STRIPPED OF BLANKETS AND BLANKETS REARRANGED AND LAID OUT ON HIM, INFORMED PT THAT IF HE WAKES UP WITHOUT HIS BLANKETS ON, THEY SHOULD ALL STILL BE TOGETHER SO HE CAN EASILY PULL THEM BACK ON HIM WITHOUT DIFFICULTY. WILL CONTINUE ENCOURAGING PT REGARDING INDEPENDENCE OF ADLS
--- NOTE | 2021-08-24 02:40 | NUR ---
PT CALLED AGAIN, REQUESTING HELP MOVING HIS BLANKETS AND WANTED HIS URINAL. RN ASKED PT IF HE WAS ABLE TO MOVE HIS BLANKETS ON HIS OWN WHILE I GRABBED THE URINAL, PT BEGAN YELLING AT RN "LISTEN LADY, I CANT BREATH ENOUGH TO SIT UP BY MYSELF, MOVE MY BLANKETS". RN MOVED BLANKETS, ASKED PT TO STOP YELLING, AGAIN, AND EDUCATED PT ON IMPORTANCE OF PRACTICING INDEPENDENCE AND THAT IF HE IS TOO WEAK OR SHORT OF BREATH TO MOVE BLANKETS OFF HIS LEGS THEN I WOULD ADVISE AGAINST STANDING TO USE THE URINAL. PT STATED HE WAS FINE, STOOD UP AND USED URINAL BY SELF. RN EMPTIED URINAL AND ASSISTED PT INTO POSITION OF COMFORT WITH BLANKETS.
--- NOTE | 2021-08-24 02:51 | NUR ---
PT CALLED AGAIN, ASKED RN IF HE BROUGHT HIS INHALER, RN STATED I WASNT SURE BUT WOULD TURN ON LIGHTS AND LOOK FOR IT. FOUND INHALER AND GAVE IT TO PT, RT NOTIFIED, PT STATED HE DIDN'T WANT RT, RN INFORMED PT THAT I STILL NEEDED TO INFORM RT THAT HE WAS HAVING SHORTNESS OF BREATH AND WANTING HIS INHALER. PT STATED HE JUST WANTED 1 PUFF AND WAS GOING TO BED. RN ASKED IF PT NEEDED ANYTHING ELSE, PT STATED HE DID NOT, LIGHTS TURNED OFF AND RN EXITED ROOM
--- NOTE | 2021-08-24 02:54 | NUR ---
PT CALLED AGAIN, WANTING TO TALK TO RT, RN INFORMED PT HIS BREATHING TREATMENT WASNT AVAILABLE FOR ANOTHER HOUR, PT SAID HE WANTS TO SPEAK RT RIGHT NOW, RT NOTIFIED
--- NOTE | 2021-08-24 02:56 | NUR ---
PT CALLED AGAIN, INFORMED THAT THIS IS INAPPROPIATE USE OF CALL LIGHT, EDUCATED ON CLUSTERING CARE AND HOURLY ROUNDING. PT STATED HE IS UNABLE TO PUT THE OXYMASK BACK ON HIM BY HIMSELF, PT VERY SHORT AND IRRITABLE WITH RN, RN PLACED PT BACK ON OXYMASK AND EDUCATED HOW TO APPLY MASK BY SELF IF HE CONTINUES TAKING IT OFF
--- NOTE | 2021-08-24 08:50 | NUR ---
PATIENT UP TO BATHROOM TO HAVE A BM AND VOID. PT ABLE TO AMBULATE INTO BATHROOM AND DID FAIRLY WELL WITH THIS ACTIVITY. PT'S LINEN CHANGED WHILE UP IN BATHROOM. PT THEN BACK TO BED AND VITALS TAKEN. PT ON ROOM AIR AND SP02 IS 91% AFTER THIS ACTIVITY. LUNGS HAVE EXP AND INSP WHEEZING THROUGHOUT. PT EATS BREAKFAST AND THEN AFTERWARDS, CALLS AGAIN FOR A BREATHING TREATMENT. LUNGS SOUNDS MORE TIGHT AND HIGHER PITCHED INSP WHEEZING HEARD. RT CALLED AND REQUESTED PRN NEB TX. DISCUSSED WITH PATIENT AVAILABILITY OF NEB TXs. PT UNDERSTANDING. WILL CONTINUE TO MONITOR CLOSELY.
--- NOTE | 2021-08-24 10:42 | NUR ---
PATIENT UP TO BATHROOM AGAIN TO HAVE ANOTHER BM. PT NOW HAVING DIARRHEA. PT VERY EMBARRASED ABOUT THIS AND GETTING SELF WORKED UP, BREATHING HARDER, AND STARTING TO BECOME MORE SOB. PT ASKING FOR HIS HOME INHALER AND STATES HE CANNOT FIND IT. SEARCHED ROOM FOR THIS IT WAS IN HIS ROOM YESTERDAY, BUT NOT ABLE TO FIND THIS AT THIS TIME. PT'S LINEN CLOSET SEARCHED WELL. WILL LOOK IN OTHER LINENS THAT WERE REMOVED FROM PATIENT'S ROOM. PATIENT STATES HE DID USE HIS PERSONAL INHALER ONCE IN THE NIGHT BECAUSE HE DIDN'T WANT TO CALL AND ASK FOR A NEB TX. DISCUSSED WITH PATIENT THE IMPORTANCE OF US KNOWING WHEN HE FEELS LIKE HE NEEDS A TREATMENT, REGARDLESS OF TIMING OF LAST NEB TX. PT EXPRESSES UNDERSTANDING. RT NOW IN ROOM GIVING NEB TX.
--- NOTE | 2021-08-24 12:55 | NUR ---
PATIENT UP TO BSC TO HAVE ANOTHER BM. PT THEN BACK TO BED AND EATING LUNCH. PT REMAINS ON 5 L OXYMASK FOR COMFORT ONLY, AND ETCO2 NASAL CANNULA HOOKED TO AIR. ETCO2 AT THIS TIME IS 36. PT'S INHALER HAS BEEN LOST, AND WILL ENSURE PATIENT HAS A PRESCRIPTION FOR A NEW ONE BEFORE D/C HOME. PLAN IS FOR PATIENT TO STAY HERE IN CCU AT THIS TIME AND WILL CONTINUE CURRENT LINE OF TREATMENT. CONTINUE TO MONITOR.
--- NOTE | 2021-08-24 14:15 | NUR ---
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 PT RESTING ON 4 L OXYMASK. SP02 97%. CONTINUE TO MONITOR.
--- NOTE | 2021-08-24 14:52 | NUR ---
SHARAD REQUESTING PRN NEB TX AND RT CALLED. PT HAS BEEN RESTING WELL AND LAST NEB WAS AROUND 1130. CONTINUE TO MONITOR.
--- NOTE | 2021-08-24 17:11 | NUR ---
Medications reconciled
--- NOTE | 2021-08-24 19:29 | NUR ---
PT RESTING QUIETLY EYES CLOSE. WAKES EASILY TO VOICE. INSPIRATORY AND EXPIRATORY WHEEZES PRESENT THROUGHOUT. MILD TO MODERATE WORK OF BREATHING DEPENDING ON ACTIVITY. PT IS CURRENTLY ON RA WITH SATs IN THE HIGH 90S. NC AND OXYMASK AT BEDSIDE FOR PT COMFORT PRN. PT DENIES PAIN, SOB, AND CURRENT NEEDS. DISCUSSED POC FOR THE EVENING AND PT VERBALIZES UNDERSTANDING. COORDINATION WITH RT ON BREATHING TREATMENTS AND PLAN FOR THE NIGHT. WILL CONTINUE TO MONITOR.
--- NOTE | 2021-08-25 01:54 | NUR ---
PT PROVIDED SANDWICH BOX X2. PT NOW RESTING QUIETLY EYES CLOSED. WILL CONTINUE TO MONITOR.
--- NOTE | 2021-08-25 07:34 | NUR ---
PATIENT AWAKE UPON ENTRY INTO ROOM AND REQUESTING A WARM BLANKET. PT EAGER FOR HIS BREAKFAST. PT SPEAKING FULL SENTENCES AND DOES NOT APPEAR IN DISTRESS. LUNG SOUNDS SHOW EXP WHEEZING THROUGHOUT. PT STATES HE FEELS PRETTY GOOD, BUT HE KNOWS WHEN HE GETS UP AND STARTS MOVING THAT HIS LUNGS WILL START TO FEEL EXACCERBATED AGAIN. ASSESSMENT OTHERWISE W/O CHANGES FROM YESTERDAY. WILL CONTINUE TO MONITOR.
--- NOTE | 2021-08-25 09:45 | NUR ---
CALL LIGHT ANSWERED BY THIS BUSINESS SERVICES ASSISTANT, PATIENT REQUESTING BREATHING TREATMENT. RT CALLED.
--- NOTE | 2021-08-25 10:00 | NUR ---
CALL LIGHT ANSWERED, PATIENT REQUESTING MORE APPLEJUICE AND ASSISTANCE TO BR FOR BM. PATIENT BACK TO SIDE OF BED, DR BUSTOS IN ROOM TO SEE PATIENT.
--- NOTE | 2021-08-25 10:48 | NUR ---
PATIENT REQUESTING A BREATHING TX AT THIS TIME. PT STATES HE IS SAD AND WORKED UP BECAUSE HE TOLD HIS SISTER WHY HE IS HERE IN THE HOSPITAL. SP02 IS 96%. EXP WHEEZING HEARD THROUGHOUT. RT CALLED FOR PATIENT. LUNCH ALSO ORDERED FOR PATIENT AND WARM BLANKETS PROVIDED.
--- NOTE | 2021-08-25 14:09 | NUR ---
IN PATIENT'S ROOM FOR BREATHING TX. PT REQUESTING A PRN NEB AFTER AMBULATING INTO BATHROOM. PT VOIDS TO TOILET. CONTINUE TO MONITOR. PT FEELING BETTER AFTER NEB TX. PT SPEAKING FULL LENGTH SENTENCES BUT STILL HAVING EXP WHEEZING.
--- NOTE | 2021-08-25 14:13 | NUR ---
PT RESTING, BUT DID WAKE TO MY VOICE. HAVE KNOWN PT MANY YEARS, SEEMED PLEASED I STOPPED. GAVE ENCOURAGEMENT AND TOLD HIM I WOULD LET HIM REST AND CHECK BACK AGAIN. HE SAID HE WOULD LIKE THAT. WILL FOLLOW NEEDED
--- NOTE | 2021-08-25 15:34 | NUR ---
DINNER ORDERED FOR PATIENT, FLOOR MOPPED UP. CALL LIGHT IN EASY REACH
--- NOTE | 2021-08-25 15:53 | NUR ---
Spoke with Adair, he cont. to work at the [employer]. Living with an uncle at this time. States he may need a new nebulizer as something was spil- led on his old one. Want a inhaler on discharge. Denies other needs.
--- NOTE | 2021-08-25 22:25 | NUR ---
PT DENIES SOB AND PAIN. DECLINES BED BATH AND CREAM FOR ECZEMA AT THIS TIME, STATES HE WOULD JUST LIKE TO SLEEP. INSTRUCTED TO NOTIFY RN IF THIS CHANGES. WARM BLAKETS PROVIDED PER REQUEST. WILL CONTINUE TO MONITOR.
--- NOTE | 2021-08-26 05:43 | NUR ---
PT UP TO RESTROOM, MEDIUM BM. PT ABLE TO AMBULATE WITHOUT ASSISTANCE AND WITHOUT REST BEFORE GETTING BACK TO BED. RT EN ROUTE FOR BREATHING TREATMENT PT DOES CONTINUE TO HAVE DECREASED ACTIVITY ENDURANCE. PT SMILES AND VOICES HOW GOOD IT FEELS TO HAVE BEEN ABLE TO WALK THIS FAR WITHOUT ASSISTANCE. NO OTHER NEEDS OR CONCERNS AT THIS TIME. WILL CONTINUE TO MONITOR.
--- NOTE | 2021-08-26 07:46 | NUR ---
PATIENT UP IN ROOM AND VERY ENERGETIC. PT HAS BEEN SINGING, PACING ROOM, EATING AND DRINKING, AND STATES, "I'M SO MUCH BETTER! I'M PROBABLY READY TO GO HOME TODAY, BUT I AM READY FOR A BREATHING TREATMENT." LUNGS HAVE SMALL AMOUNTS OF EXP WHEEZING, BUT MINIMAL ACCESSORY MUSCLE USE NOTED TODAY. PT EAGER FOR HIS BREAKFAST. RT NOW IN ROOM WITH PATIENT. PLAN FOR THE DAY DISCUSSESD WITH PATIENT.
--- NOTE | 2021-08-26 08:45 | NUR ---
PATIENT UP TO BR FOR BM. NEW UNDERWEAR PROVIDED. LINEN CHANGEDAND ROOM TIDIED ES IN TO MOP FLOOR. CALL LIGHT IN REACH, NO OTHER NEEDS AT THIS TIME
--- NOTE | 2021-08-26 09:10 | NUR ---
PATIENT TAKEN TO ROOM 126 FOR SHOWER. PATIENT ASKED FOR ASSISTANCE WITH SHAMPOOING HAIR AND WASHING HIS BACK. PATIENT EXPRESSED ANXIETY WITH BEING IN SHOWERS THE WATER AND SOAP TEND TO MAKE HIS ECZEMA PAINFUL. PATIENT EXPRESSING GRATITUDE FOR STAFFS ASSISTANCE AND ENCOURAGEMENT. PATIENT BACK TO SIDE OF HIS BED, RN AT BEDSIDE. CALL LIGHT AND PERSONAL ITEMS IN EASY REACH
--- NOTE | 2021-08-26 09:52 | NUR ---
PATIENT UP TO SHOWER AND TOLERATED WELL. PT TOLERATING NORMAL AMOUNTS OF ACTIVITY W/O BECOMING TOO SHORT OF BREATH OR WHEEZING. DR. BUSTOS TO SEE PATIENT NOW AT THIS TIME.
--- NOTE | 2021-08-26 09:58 | NUR ---
PATIENT WILL TRANSFER TO THE FLOOR TODAY W/O TELEMETRY. PT IN GOOD SPIRITS. CONTINUE TO MONITOR.
--- NOTE | 2021-08-26 10:45 | NUR ---
PT ALERT, ORIENTED AND SITTING IN BED EATING WHAT HE CALLED HIS SECOND AM MEAL.SAID HE HAD FRIENDS PRAYING FOR HIM LAST NIGHT-AND IT WORKED! HE SAID HE FEELS SO MUCH BETTER. GAVE BLESSING, WILL RETURN
--- NOTE | 2021-08-26 11:46 | NUR ---
PATIENT UP WALKING THE HALLS, WATCHING HIS IPHONE AND IN GOOD SPIRITS. PT CONTINUES TO FEEL GOOD AND DENIES NEEDS AT THIS TIME. CONTINUE TO MONITOR.
--- NOTE | 2021-08-26 12:15 | NUR ---
Patient arrives to [facility] room 109 from CCU. Pt is ambulatory to room. He states no pain or SOB at this time, on RA. All personal belongings brought with patient. VSS, A+O. Lunch ordered. No other needs at this time, patient oriented to room/call light.
--- NOTE | 2021-08-26 12:16 | NUR ---
PATIENT AMBULATED OVER TO NEW ROOM OF 109. REPORT GIVEN TO MAVIS BOOKER. PT TAKES ALL PERSONAL BELONGINGS WITH HIM, INCLUDING HIS KEYS, CELL PHONE, AND HIS INHALER. PT ABLE TO WALK THE WHOLE WAY AND FELT GOOD WHILE WALKING. PT NOW READY FOR HIS LUNCH. CONTINUE TO MONITOR.
--- NOTE | 2021-08-26 13:53 | NUR ---
Pt up walking numerous laps in hallway. States no pain or SOB at this time.
--- NOTE | 2021-08-26 14:30 | NUR ---
Pt continues to walk in hallway, stable condition, no SOB
--- NOTE | 2021-08-26 14:34 | NUR ---
PATIENT AMBULATING MULTIPLE LAPS IN HALLWAY INDEPENDENTLY. PATIENT NOW BACK IN ROOM SITTING IN CHAIR. GLACIOLOGIST DID VITALS AND I&O'S. CALL LIGHT IN REACH. NO FURTHER NEEDS AT THIS TIME.
--- NOTE | 2021-08-26 14:54 | NUR ---
Spoke with Adair, he is walking in the [place]. Denies needs. Easily becomes sob when speaking. Denies needs.
--- NOTE | 2021-08-26 18:15 | NUR ---
VSS, I/Os complete. Pt resting in bed with eyes closed, states no pain and SOB, and states "feeling relaxed". Lung sounds dim, intermittent exp wheeze noted in RUL and RLL.
--- NOTE | 2021-08-26 19:20 | NUR ---
REPORT RECEIVED FROM MAVIS BOOKER. pt UP AMBULATING IN HALLWAY INDEPENDENTLY. ON RA. REQUESTING SANDWICH BOX. MILK COLLECTOR RN NOTIFIED.
--- NOTE | 2021-08-26 20:24 | NUR ---
pt RESTING IN BED WATCHING TV ON PHONE. ASSESSMENT COMPLETE. pt DENIES SOB. SPO2 98% ON RA. SPORADIC WHEEZES AUSCULTATED THROUGHOUT LUNG LOBES. IV SITE FLUSHED WNL. ICE WATER REFILLED. CALL LIGHT IN REACH. NO ADDITIONAL REQUESTS.
--- NOTE | 2021-08-26 22:07 | NUR ---
pt TO NURSES STATION, REQUESTING PEPTO BISMOL. PRN MAALOX PROVIDED, NIO. pt BACK IN BED RESTING. CALL LIGHT IN REACH.
--- NOTE | 2021-08-26 22:59 | NUR ---
pt UP AMBULATING IN HALLWAY. GIVES THUMBS UP STATES "THAT MEDICINE WORKED". REQEUSTING PRN BREATHING TREATMENT. RT HUMPHREY NOTIFIED.
--- NOTE | 2021-08-26 23:28 | NUR ---
WARM BLANKETS PROVIDED PER PATIENT'S REQUEST.
--- NOTE | 2021-08-26 23:40 | NUR ---
pt TO NURSES STATION. REQUESTING WARM BLANKETS, STATES HE'S GOING TO GO TO SLEEP NOW. NO ADDITIONAL REQUESTS, BLANKETS PROVIDED.
--- NOTE | 2021-08-27 01:40 | NUR ---
CALL LIGHT ANSWERED. pt STATES HE ACCIDENTALLY CALLED. NO NEEDS AT THIS TIME.
--- NOTE | 2021-08-27 06:13 | NUR ---
pt SLEEPING, AWAKENS TO VOICE. VSS. SPO2 WNL ON RA. pt REQUESTING TO SLEEP. ASSESSMENT COMPLETE. SPORADIC WHEEZES THROUGHOUT LUNG LOBES AUSCULTATED. URINAL EMPTIED. TRAY TABLES CLEARED. BREAKFAST ORDER PLACED. CALL LIGHT IN REACH.
--- NOTE | 2021-08-27 07:31 | NUR ---
report recived from shift manager RN, pt resting in bed, call light within reach, RR even and nonlaobred, no needs at the moment
--- NOTE | 2021-08-27 07:40 | NUR ---
Spoke with pt and he is walking in the [place]. Denies needs. Plans on dc to home today.
--- NOTE | 2021-08-27 08:30 | NUR ---
RN IN ROOM TO DO MORNING ASSESSMENT AND MEDICATIONS, PT AWAKE UP IND IN ROOM AND IN HALLS, ROOM AIR, DENIES ANY NEEDS AT THE MOMENT
--- NOTE | 2021-08-27 12:15 | NUR ---
RN IN TO ROUND ON PT, LAYING DOWN NAPPING, LUNCH DELIVERD NO NEEDS
--- NOTE | 2021-08-27 12:54 | NUR ---
PT ASLEEP, DID NOT DISTURB. WILL CHECK BACK
[2021-08-27] MEDS ORDERED: PREDNISONE20 MG PO (13:17)
--- NOTE | 2021-08-27 13:54 | NUR ---
PT TO DC TODAY, FOUND SOME CLOTHES TO WEAR FOR PT-HE HAD NONE. GAVE ENCOURAGEMENT, HAD PRAYER WITH PT. FUND MANAGER SYLVESTER WILL ARRANGE A CARE RIDE FOR PT. WILL FOLLOW NEEDED
--- NOTE | 2021-08-27 14:00 | NUR ---
discharge instructions given to pt verbalized understanding, iv removed by marco north .
== END 2021-08-27 14:13 | disposition home or self-care (01) | DRG 202 ==
LOC: ED 03:10 → CCU 04:34 → MS 04:34
PROVIDERS: ADMIT Internal Medicine; ATTEND Internal Medicine
DX: J45.51 Severe persistent asthma with (acute) exacerbation (principal); J96.02 Acute respiratory failure with hypercapnia; L20.9 Atopic dermatitis, unspecified; F17.200 Nicotine dependence, unspecified, uncomplicated; Z72.89 Other problems related to lifestyle; Z20.822 Contact with and (suspected) exposure to COVID-19
CPT/HCPCS: 36415; 36600; 71045; 80048; 82803; 83880; 94640; 94660; 94760; 96365; 96375; 99285-25; C9803; J2060; J2930; J3475; J7512; U0003

== ENCOUNTER 2021-11-08 17:12 | Inpatient (IN) | payer OTHER ==
[~2021-11-08] VITALS: Ht 167.6 cm; Wt 61.0 kg
[2021-11-08] MEDS ORDERED: PREDNISONE20 MG PO (19:00)
--- NOTE | 2021-11-08 20:40 | NUR ---
PT ARRIVED TO THE FLOOR ON 5L PER OXY MASK SATS AT 97%. PT SEEMS ANXIOUS SPEAKING SEVERAL SENTENCE PER MIN. FIDGETING IN BED. NO S,SX OF ANY DISTRESS. PT REQUESTING TO TAKE SHOWER. GAVE PT TOILETERY. PT WITH AUDIBLE INSP AND EXP WHEEZING. VSS. INFORMED PT THAT I WILL CHECK IN HIM SHORTLY. PT REPORTS HE WILL CALL ALSO IF NEEDED. ABLE TO WEAN O2 OFF SATS AT 92. WILL CONTINUE TO MONITOR.
--- NOTE | 2021-11-08 23:24 | NUR ---
PT WAS IN SHOWER FOR SVERAL MINUTES, CHECKED ON PT MULTIPLE TIMES. PT VERBALIZED FEELING GOOD. NO S/SX OF ANY RESP DISTRESS NOTED. UPON ASSESSMENT SATS AY 92 ON RA. PT CONTINUES WITH EXP WHEEZES DECREASED IN THE BLL. PT REQUESTING FOOD, WALKING AROUND IN ROOM . PT CAME OUT TO FERRO REQUESTING PILLOWS, BLANKETS AND FLUIDS. VSS RESP EVEN AND UNLABORED, NO S/SX OF ANY DISTRESS NOTED. PT DISCONNECTS HIMSELF FROM MONITOR. WILL CONTINUE TO MONITOR.
--- NOTE | 2021-11-09 00:22 | NUR ---
PT RESTING IN BED WITH EYES CLOSED IN NO ACUTE DISTRESS. RESP EVEN AND UNLABORED , PT ON RA SATS AT 92% CALL LIGHT WITHIN REACH WILL CONTINUE TO MONITOR.
--- NOTE | 2021-11-09 00:57 | NUR ---
PT RESTING IN BED IN NO ACUTE DISTRESS. PT RESP EVEN AND UNLABORED. VSS PT REMAINS ON RA SATS GREATER THAN 90. CALL LIGHT WITHIN REACH WILL CONTINUE TO MONITOR.
--- NOTE | 2021-11-09 04:00 | NUR ---
PT UP IN THE [place] REQUESTING FOOD. PROVIDED SNACKS, PT WANTING NEB TX. RESP EVEN AND UNLABORED. SATS 93 ON RA, CALL LIGHT WITHIN REACH WILL CONTINUE TO MONITOR.
--- NOTE | 2021-11-09 05:49 | NUR ---
PT LAYING IN BED WITH EYES CLOSED . RESP EVEN AND UNLABORED. CALL LIGHT WITHIN REACH WILL CONTINUE TO MONITOR.
--- NOTE | 2021-11-09 08:00 | NUR ---
IN TO CHECK ON PT, HE IS VERY DROWSY AND SOMEWHAT DIFFICULT TO WAKE UP BUT WHEN HE DOES AWAKEN HE SITS UP IN BED AND IS ALERT AND ORIENTED. DENIES NEEDS. SPO2 92% ON ROOM AIR. STATES HIS BREATHING IS A LITTLE LABORED STILL. LUNGS ARE DIM/SLIGHT WHEEZES HEARD. UP TO EAT BREAKFAST.
--- NOTE | 2021-11-09 09:00 | NUR ---
NEB TX GIVEN, PT STILL VERY DROWSY. HAS EATEN ALL OF HIS BREAKFAST.
--- NOTE | 2021-11-09 09:02 | NUR ---
scheduled macho provided. spo2 95% on ra. warm blankets provided. no other needs. call light in reach.
--- NOTE | 2021-11-09 10:47 | NUR ---
IV SOLUMEDROL GIVEN, PT DENIES NEEDS.
--- NOTE | 2021-11-09 10:48 | NUR ---
OXYGEN TURNED DOWN TO 1L/OM SPO2 96%. RR 20.
--- NOTE | 2021-11-09 12:30 | NUR ---
IN TO DO NEB TX AND SERVE PT LUNCH. LUNGS HAVE MORE EXP WHEEZES AT THIS TIME THAN EARLIER THIS MORNING.
--- NOTE | 2021-11-09 12:30 | NUR ---
REPORT GIVEN TO MARIIA GAMBLE. PT TRANSFERRED OVER TO MED SURG.
--- NOTE | 2021-11-09 14:00 | NUR ---
REPORT RECD. FROM [facility]/CCU, TRANSFERRED FROM CCU TODAY, PT IS KNOWN TO STAFF, ADMITTED FOR ASTHMA EXACERBATION, TREATMENT RECD., SOLUMEDROL, NEBULIZERS, O2 SUPPORT BUT NOW ON RA. ORIENTED TO ROOM AND STAFF, NO FURTHER QUESTIONS, CCU RN GAVE 1200 NEB, NEXT ONE DUE AT 1600.
--- NOTE | 2021-11-09 14:00 | NUR ---
REPORT GIVEN TO JANNY RN, AND PT TRANSFERRED TO MED SURG ROOM 116.
--- NOTE | 2021-11-09 17:41 | NUR ---
BREATHING TREATMENT CONTINUED, SOLUMEDROL WAS GIVEN. PT. SLEEPING OFF AND ON. ROOM AIR, NO DISTRESS.
--- NOTE | 2021-11-09 19:05 | NUR ---
BEDSIDE REPORT RECEIVED FROM OFFGOING RNJANNY. PT RESTING IN BED WITH EYES CLOSED. DOES NOT WAKE WHILE RNS AT DOORWAY. CALL LIGHT IN REACH.
--- NOTE | 2021-11-09 21:19 | NUR ---
PT UTILIZES CALL LIGHT, REQUESTS SNACKS. PT REPORTS RECENTLY UP TO BATHROOM AND WAS SOB. PT REPORTS RT WAS IN ROOM AND GAVE TREATMENT. PT FEELS SOB IS IMPROVING AT THIS TIME. LUNG SOUNDS WITH INSPIRATORY AND EXPIRATORY WHEEZE PRESENT THROUGHOUT ALL LUNG ISIDRO. PT WITH PRODUCTIVE AND LOOSE COUGH PRESENT DURING ASSESSMENT. PT REPORTS CHEST AND THROAT PAIN DURING COUGHING. DENIES OTHER PAIN. PT DENIES NAUSEA AT THIS TIME. SKIN WITH DRY, PATCH, AND SCABBED AREAS HEAD TO TOE. IV FLUSHED WITH 10 ML NS, SL. VS OBTAINED. WNL. PT DENIES FURTHER NEEDS AT THIS TIME. CALL LIGHT IN REACH.
--- NOTE | 2021-11-09 23:51 | NUR ---
PT ROUNDING. PT RESTING IN BED WITH EYES CLOSED. DOES NOT WAKE WHILE AUDIO VIDEO REPAIRER AT DOOR WAY. APPEARS TO BE SLEEPING. CALL LIGHT IN REACH.
--- NOTE | 2021-11-10 01:18 | NUR ---
PT ASSESSMENT COMPLETE. PT UTILIZES CALL LIGHT, REQUESTS PRN NEB. STATES THAT HE IS HAVING TROUBLE BREATHING AFTER GETTING UP TO BATHROOM AND BACK TO BED. PT WITH INSPIRATORY AND EXIPIRATORY WHEEZE THROUGHOUT ALL LUNG ISIDRO. NO COUGH NOTED DURING ASSESSMENT. RT NOTIFIED. PT DENIES FURTHER NEEDS AT THIS TIME. CALL LIGHT IN REACH.
--- NOTE | 2021-11-10 04:42 | NUR ---
PT ROUNDING. PT RESTING IN BED WITH EYES CLOSED. APPEARS TO BE SLEEPING. PT WAKES BRIEFLY WHEN OPERATION MANAGER OPENS DOOR. PT DENIES NEEDS. CALL LIGHT IN REACH.
--- NOTE | 2021-11-10 05:40 | NUR ---
PT CALLED, REQUESTED AND RECEIVED 2 WARM BLANKETS, OFFERED TO TURN THE ROOM TEMP UP, BUT HE SAID NO, BLANKETS ARE OK.
--- NOTE | 2021-11-10 05:56 | NUR ---
PT ROUNDING. PT RESTING IN BED WITH EYES CLOSED. WAKES EASILY TO VOICE, ANSWERS WRITERS QUESTIONS BUT DOES NOT OPEN HIS EYES. ROOM TIDIED OF FOOD AND GARBAGE ON FLOOR. VS OBTAINED. WNL. PT DENIES NEEDS. CALL LIGHT IN REACH.
--- NOTE | 2021-11-10 07:37 | NUR ---
Patient in bed resting, eyes closed, respirations even and non labored. Patient has no distress. Call light within reach.
--- NOTE | 2021-11-10 08:25 | NUR ---
PATIENT IN BED RESTING WITH EYES CLOSED. WHITE BOARD UPDATED. CALL LIGHT IN REACH. NO FURTHER NEEDS AT THIS TIME.
[2021-11-10] MEDS ORDERED: PROAIR HFA8.5 GM INH (10:16)
[2021-11-10] MEDS ORDERED: WIXELA 250-501 EACH INH (10:16)
[2021-11-10] MEDS ORDERED: SINGULAIR10 MG PO (10:18)
[2021-11-10] MEDS ORDERED: TRIAMCINOLONE A15 G3 TOP (10:18)
[2021-11-10] MEDS ORDERED: FLUTICASONE PRO16 GM NAS (10:19)
[2021-11-10] MEDS ORDERED: ZYRTEC10 MG PO (10:20)
--- NOTE | 2021-11-10 10:33 | NUR ---
PT STATES HE WANTS TO TALK WITH MD PRIOR TO A SHOWER THIS AFTERNOON.
--- NOTE | 2021-11-10 10:34 | NUR ---
PATIENT IN BED RESTING WITH EYES CLOSED. VITALS AND I&O'S CHARTED. CALL LIGHT IN REACH. NO FURTHER NEEDS AT THIS TIME.
--- NOTE | 2021-11-10 11:34 | NUR ---
MED REC COMPLETE
--- NOTE | 2021-11-10 12:11 | NUR ---
Linens changed at this time. Patient ambulated in hallway independently, tolerated well. Encouraged patient to shower this afternoon, pt receptive. Pt denies shortness of breath at rest. Patient on room air, respirations are non labored. Lunch to pt at this time. No further needs.
--- NOTE | 2021-11-10 12:55 | NUR ---
Adair was up ambulating in the [place] independantly when I arrived to visit with brnadone. He is on room air, alert, and oriented. Pt describes home life as frustrating and would like to get a job and move into his own apartment. He denies need for help with self care. He will need a taxi ride to go home. He has food stamps for food. He currently lives with his uncle. Patient would like an inhaler prior to leaving the hospital. This information is discussed with his primary nurse.
--- NOTE | 2021-11-10 13:04 | NUR ---
RM DARKENED, TV OFF AND PT RESTING IN BED. HE AWOKE TO MY VOICE, SAID HE IS BETTER, THINKS HE WILL DC TOMORROW. PT REQUESTED PRAYER, WILL FOLLOW
--- NOTE | 2021-11-10 14:16 | NUR ---
PATIENT IN BED RESTING WITH EYES CLOSED. VITALS AND I&O'S CHARTED. CALL LIGHT IN REACH. NO FURTHER NEEDS AT THIS TIME.
--- NOTE | 2021-11-10 14:39 | NUR ---
Patient watching tv, no distress. Patient denies needs. Call light within reach.
--- NOTE | 2021-11-10 15:48 | NUR ---
Patient in bed resting, eyes closed, respirations even and non labored. Patient has no notable distress. Personal supplies and call light within reach.
--- NOTE | 2021-11-10 18:25 | NUR ---
PATIENT IN BED RESTING. VITALS AND I&O'S CHARTED. WARM BLANKET GIVEN. CALL LIGHT IN REACH. NO FURTHER NEEDS AT THIS TIME.
--- NOTE | 2021-11-10 19:10 | NUR ---
BEDSIDE REPORT RECEIVED FROM OFFGOING RNLISSETH. PT RESTING IN BED WITH EYES CLOSED. DOES NOT WAKE TO PARTICIPATE IN REPORT.
--- NOTE | 2021-11-10 19:30 | NUR ---
patient called for soda. provided.
--- NOTE | 2021-11-10 20:02 | NUR ---
PT ASSESSMENT COMPLETE. PT DENIES PAIN OR NAUSEA. PT RECEIVING A NEB TREATEMENT DURING ASSESSMENT. PT DENIES SOB. NO COUGH NOTED DURING ASSESSMENT. LUNG SOUNDS CLEAR THROUHGOUT. PT REPORTS BM X 2. PT REQUESTS MULTIPLE SNACKS AND SODA, WARM BLANKET X2. PROVIDED. PT DENIES FURTHER NEEDS AT THIS TIME. CALL LIGHT IN REACH. WHITE BOARD UPDATED.
--- NOTE | 2021-11-10 22:30 | NUR ---
PT UTLIZES CALL LIGHT, REQUESTS EARNEST MEZA AND SADA. PROVIDED. PT DENIES SOB AT THIS TIME. DENIES FURTHER NEEDS. CALL LIGHT IN REACH.
--- NOTE | 2021-11-10 23:43 | NUR ---
patient called for 2 soda. provided.
--- NOTE | 2021-11-11 03:06 | NUR ---
PT ASSESSMENT COMPLETE. PT RESTING IN BED WITH EYES CLOSED. PT ANSWERS QUESTIONS APPROPRIATELY. DOES NOT OPEN EYES DURING ASSESSMENT. PT DENIES PAIN, NAUSEA, OR SOB. LUNG SOUNDS CLEAR THOUGHOUT. NO COUGH NOTED DURING ASSESSMENT. IV FLUSHED WITH 10 ML NS. WNL. SL. PT DENIES FURTHER NEEDS. CALL LIGHT IN REACH.
--- NOTE | 2021-11-11 04:20 | NUR ---
PT RESTING IN BED WITH EYES CLOSED. RESPIRATIONS EVEN AND UNLABORED. NO S/SX OF DISTRESS NOTED. PT APPEARS TO BE SLEEPING. CALL LIGHT IN REACH.
--- NOTE | 2021-11-11 07:05 | NUR ---
REPORT RECEIVED FROM MAVIS COLLINS. PT RESTING IN BED ON LEFT SIDE WITH EYES CLOSED, RESPIRATIONS EVEN AND UNLABORED. BED RAILS UP. CALL LIGHT WITHIN REACH. PT ALLOWED TO REST.
--- NOTE | 2021-11-11 09:07 | NUR ---
PT IS LAYING IN BED SLEEPING. CALL LIGHT WITHIN REACH NO FURTHER TASKS AT THIS TIME
--- NOTE | 2021-11-11 09:10 | NUR ---
MORNING ASSESSMENT AND MEDICAITON DUE. PT RESTING IN BED. AWAKE BUT REPORTS FEELING "REALLY TIRED." PT STATES HE "JUST WANT TO SLEEP." PT DECLINES NEBULIZER TREATEMENT. EDUCATION DONE, PT STATES "I'M OVER THAT HUMP, I DON'T NEED IT. IV ASSESSED, DRESSING LOOSE AND FALLING OFF. DRESSING CHAGNE PER PROTOCOL. IV FLUSHES WELL, MEDICAITON GIVEN. SALINE LOCKED WITH ALCOHOL CAP IN PLACE. PT ORIENTED TO ALL AND STATES HE FEELS "PRETTY MUCH BACK TO NORMAL." HEART TONES WNL. LUNG SOUNDS CLEAR. NO LABORED BREATHIG NOTED. PT ENCORUAGED TO AMBULATE BUT DECLINES AT THIS TIME. OXGYEN SATRUATION OF 98% ON ROOM AIR. SKIN REMAINS DRY AND SCALEY THROUGOUT. PT ATTRIBUTES TO UNCONTROLED ECZEMA. PT ANXIOUS ABOUT MISSING WORK STATING HE HAD A "METAL JOB" LINED UP. PT DENEIS ADDITIONAL REQUESTS OR COMPLAINTS. PT RESTING ON LEFT SIDE STATING HE IS GOING TO SLEEP. CALL LIGHT WITHIN REACH.B ED RAILS UP. SHOWER OFFERED, PT DECLINES AT THIS TIME.
--- NOTE | 2021-11-11 10:20 | NUR ---
THIS RN TO ROOM TO CHECK ON PT. PT CONTINUES RESTING ON LEFT SIDE WITH EYES CLOSED. RESPIRATIONS EVEN AND UNLABORED. NO WHEEZING NOTED. NO ADDITIONAL NEEDS AT THIS TIME. CALL LIGHT WITHIN REACH. BED RAILS UP.
--- NOTE | 2021-11-11 12:02 | NUR ---
THIS RN TO ROOM TO CHECK ON PT. PT CONTINUES RESTING ON LEFT SIDE WITH EYES CLOSED. RESPIRATIONS EVEN AND UNLABORED. BED RAILS UP. NO WHEEZES NOTED. CALL LIGHT WITHIN REACH. PT ALLOWED TO REST.
--- NOTE | 2021-11-11 12:45 | NUR ---
THIS RN TO ROOM TO CHECK ON PT. PT ENCOURAGED TO GET UP OUT OF BED AND AMBULATE IN F[facility]O. PT UP TO AMBULATE X1 LAP IN F[place], IMPULSIVE AND WALKIGN VERY FAST. PT STOPS TWICE TO COUGH WHILE WALKING. PT NOW SITTING ON EDGE OF BED TO EAT LUNCH. REPORTS GOOD APPITITE. NO ADDITIONAL REQUESTS OR COMPLAINTS. CALL LIGHT WITHIN REACH. BED RAILS UP. PT REFUSES TO HAVE BLINDS OPEN IN ROOM.
--- NOTE | 2021-11-11 13:50 | NUR ---
PT ASLEEP, RESTING ON R SIDE. DID NOT DISTURB. WILL CONTINIE TO FOLLOW
--- NOTE | 2021-11-11 14:07 | NUR ---
PT UP TO AMBULATE IN [place]. PT CHEERFUL AND APPOLIGIZES FOR PREVIOUS IRRITABILTY. PT STEADY ON FEET. DENIES FEELINGS OF SHORTNESS OF BREATH. PT DENIES REQUESTS OR COMPLAINTS.
--- NOTE | 2021-11-11 15:13 | NUR ---
AFTERNOON ASSESSMENT DUE. PT HAS BEEN WALKING IN [place] AT A QUICK PACE SINCE PREVIOUS NOTE. PT BACK TO ROOM AT THIS TIME. PT UP IN ROOM. PT TALKING IN LONG STREAMS OF WORDS. PT DENIES SHORTNESS OF BREATH. PT DOES NOT NEED TO STOP TALKING TO CATCH HIS BREATH. EXPIRATORY WHEEZES NOTED WITH ASCULTATION. CORSE SOUNDS CLEAR WITH COUGH. PT AGREES TO BREATHING TREATMENT. RT TO BEDSIDE, BREATHING TREATMENT GIVEN BY RT SHAHID. PT STATES "OH THAT FEELS AMAZING." PT COUGHING UP CLEAR SPUTUM, USING SUCTION APPROPRIATLY. PT ALERT AND OREINTED. PT DENIES PAIN AND NAUSEA. OXGYEN SATURATIONS ABOVE 94% ON ROOM AIR. 99% AT THIS TIME. HEAR TONES REGULAR. LUNG SOUNDS IMPROVE WITH BREATHING TX, MINIMAL EXPIRATORY WHEEZ NOTED IN LEFT UPPER LOBE. PT REPORTS HE IS DETERMINED TO GET BETTER AND GO HOME "I'VE GOT TO DO WHAT DR BUSTOS SAYS. i"M IN HIGH SPIRITS ADN I THANK HIM FOR ALL HE DOES." PT DENIES ADDITIONAL REQUESTS OR COMPLAINTS. CALL LIGHT [employer] REACH. BED RAILS UP.
--- NOTE | 2021-11-11 16:00 | NUR ---
THIS RN TO ROOM TO CHECK ON PT. PT RESTING IN BED LISTENING TO MUSIC. PT REPORTS HUNGER. PROTEIN SNACK ORDERED. PT ASSISTED WITH ORDERING DINNER AND BREAKFAST WELL. PT DNEIES PAIN AND NASUEA AND REPORTS BREATHING FEELS "MUCH BETTER." PT CONTINUES TO STATE HE IS DETERMINED TO GO HOME TOMORROW. PT DENIES ADDITIONAL REQUETS OR COMPLAINTS. CALL LIGHT WITHIN REACH. BED RAILS UP.
--- NOTE | 2021-11-11 16:44 | NUR ---
PT HERE FOR ASTHMA EXACERBATION. PT DROWSY AND IRRITABLE THIS MORNING, MUCH IMPROVED THIS AFTERNOON. PT INDEPENDANT IN ROOM AND UP TO FERRO FOR LONG WALKS. PT TOLERATING REGULAR DIET WITH EXCEPTIONAL APPITITE. SNACKS PROVIDED.PT DECLINES NEBULIZER TREATMENTS AT TIMES, EDUCATION DONE. SHOWER THIS SHIFT. NEW IV PLACED. LUNG SOUNDS CLEAR WITH OCCATIONAL EXPRATORY WHEEZES. IV SOLUMEDROL GIVEN. PT USES CALL LIGHT AND MAKES NEEDS KNOWN. PT VOIDING QUANTITY SUFFICIENT. SHOWER THIS SHIFT.
--- NOTE | 2021-11-11 17:38 | NUR ---
MEDICATION DUE. PT SITTING ON EDGE OF BED EATING DINNER. MEDICATION GIVEN. IV FLUSHED AND SALINE LOCKED, ALCOHOL CAP APPLIED. PT REQUESTS A BREATHING TREATEMENT. RT CALLED AND STATES THEY WILL COME SHORTLEY FOR TREATEMENT. PT DENIES PAIN AND NAUSEA. PT RECENTLY UP TO WALK X ANOTHER 15 MINUTES. NO ADDITIONAL REQUETS OR COMPLAINTS. CALL LIGHT WITHIN REACH.
--- NOTE | 2021-11-11 18:08 | NUR ---
PATIENT SITTING UP ON BED AT THIS TIME. VITALS AND I&O'S CHARTED. CALL LIGHT IN REACH. NO FURTHER NEEDS AT THIS TIME.
--- NOTE | 2021-11-11 20:00 | NUR ---
PT ASSESSMENT COMPLETED. NO WHEEZES HEARD. PT IS FINISHING A MEAL. REQUESTED PT USE URINAL IN ORDER TO ASSESS HYDRATION STATUS WHEN NEXT IN BATHRROM. PT AGREES. PT IS AWAKE AND ALERT, COOPERATIVE AND PLEASANT. CALL LIGHT AT BEDSIDE. PT IS INDEPENDENT IN ROOM. NO FURTHER NEEDS.
--- NOTE | 2021-11-11 20:32 | NUR ---
PT STATES HE WILL PARTICIPATE IN ALL OF HIS TREATMENTS TONIGHTIN PREPARATION FOR DISCHARGE TOMORROW. HIS IV WAS FLUSHED AND IS PATENT, WELL SECURED. HE HAS HIS CALL LIGHT AT BEDSIDE AND KNOWS TO USE IT. HE IS INDEPENDENT IN HIS ROOM. STATES HE IS VOIDING AND HAS HAD A BM TODAY. DENIES ANY PAIN. REQUESTED COFFEE AND WAS GIVEN WITH MILK AND SUGAR.
--- NOTE | 2021-11-11 21:33 | NUR ---
PT REQUESTED A FAN HE FELT THE ROOM WAS TOO WARM. ROOM TEMP IS 67 DEGREES, PT TEMP IS 98.7 ORALLY. PT IS GIVEN A FAN . HE KNOWS TO CALL IF ROOM BECOMES TOO COLD. NO FURTHER NEEDS.
--- NOTE | 2021-11-11 23:57 | NUR ---
PT AWAKE AND REQUESTING SOMETHING TO EAT. PT GIVEN A SANDWICH BOX. HE REQUESTED IT LEFT AT THE BEDSIDE. CALL LIGHT AT HAND, NO FURTHER NEEDS.
--- NOTE | 2021-11-12 02:20 | NUR ---
PT WAS GIVEN SCHEDULED MED WITH EXPLANATION OF PURPOSE. PT VERBALIZED " YEAH i KNOW, JUST DO IT" NO FURTHER NEEDS.
--- NOTE | 2021-11-12 02:30 | NUR ---
PT HAS BEEN SLEEPING QUIETLY. HE ATE HIS BOXED MEAL AND WENT BACK TO SLEEP. DENIES ANY PAIN. CALL LIGHT IN REACH. DENIES FURTHER NEEDS.
--- NOTE | 2021-11-12 04:09 | NUR ---
PT AWAKE AND REQUESTING 2 WARMED BLANKETS. DENIES PAIN, DENIES SOB. CALL LIGHT IN REACH.
--- NOTE | 2021-11-12 06:59 | NUR ---
PT STATES HE HAD A DIARRHEA STOOL AROUND 0610. THIS WAS PASSED TO THE INCOMING RN AND PT WAS INSTRUCTED TO TELL HIS MD ABOUT THE EPISODE. HE KNOWS TO NOTIFY STAFF IF CONDITION WORSENS. PT HAS A CLEAN PAIR OF PANTS IN HIS BATHROOM. HE WAS GIVEN COFFEE WITH 5 SUGARS AND A CREAM. NO OTHER NEEDS.
--- NOTE | 2021-11-12 07:30 | NUR ---
PT AWAKE IN BED. PT HAD DIARRHEA THIS AM. RN JANNY NOTIFIED. PT DID NOT KNOW THAT COFFEE IS A DIURETIC, SO WENT FOR OJ THIS AM. WHITE BOARD UPDATED. CALL LIGHT IN REACH. NO FURTHER NEEDS AT THIS TIME.
--- NOTE | 2021-11-12 07:54 | NUR ---
PT. RESTING IN BED, A & O X 4, EXPIRATORY WHEEZES ALL 4 QUADS, RESPIRATORY TX THEN IN PROGRESS, PT. HAS HAD NEW ONSET DIARRHEA X 4 IN THE NIGHT AND 2 THIS AM, BROWN LIQUID. DISCUSSED DIET FOR TODAY. POSSIBLE DISCHARGE TODAY. WILL REPORT TO DR. BUSTOS.
--- NOTE | 2021-11-12 08:57 | NUR ---
PT AWAKE AND AMBULATING AROUND ROOM. PT ORDERED A SECOND BREAKFAST. PT IS CHATTING HAPPILY ABOUT FAMILY. CALL LIGHT IN REACH. NO FURTHER NEEDS AT THIS TIME.
[2021-11-12] MEDS ORDERED: PROAIR HFA8.5 GM INH (12:23)
[2021-11-12] MEDS ORDERED: PREDNISONE20 MG PO (12:24)
--- NOTE | 2021-11-12 12:25 | NUR ---
INSTRUCTED PT. TO CALL WHEN HE HAS A BM, PLACED HAT IN TOILET TO CATCH STOOL, SEAM RUBBER NOTIFIED AND RN AWAITING STOOL SAMPLE FOR GASTROPATHOGENS FOR PCR. THEN DC HOME WITH F/U JORGE 5-7 D, PREDNISONE TAPER AND INHALERS.
[2021-11-12] MEDS ORDERED: NEBULIZER UNIT XX (12:26)
[2021-11-12] MEDS ORDERED: ALBUTEROL2.5 MG/0.5 INH (12:28)
[2021-11-12] MEDS ORDERED: SYMBICORT 16010.2 GM INH (12:29)
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
--- NOTE | 2021-11-12 14:00 | NUR ---
STOOL SAMPLE OBTAINED AND SENT TO LAB. MD LARISSA AWARE OF B/P 167/95. GARCÍA COOPERATIVE WITH ALL CARE. REVIEWED DC INSTX, GAVE RX, AND WRITTEN INFO REGARDING ASTHMA TEACHING. NO FURTHER QUESTIONS. PT. STATES HE DOES NOT HAVE TROUBLE GETTING HIS INHALERS AFTER DISCHARGE AND HOME. [employer] WILL BE CALLED FOR RIDE TO [facility] PER PT. REQUEST.
== END 2021-11-12 14:34 | disposition home or self-care (01) | DRG 203 ==
LOC: ED 17:12 → CCU 17:13 → MS 11-09 13:20
PROVIDERS: ADMIT Internal Medicine; ATTEND Internal Medicine
DX: J45.51 Severe persistent asthma with (acute) exacerbation (principal); L30.9 Dermatitis, unspecified; F17.200 Nicotine dependence, unspecified, uncomplicated; Z98.890 Other specified postprocedural states; Z79.899 Other long term (current) drug therapy; Z20.822 Contact with and (suspected) exposure to COVID-19
CPT/HCPCS: 36415; 36600; 71045; 80053; 82803; 85025; 87502; 94640; 94760; C9803; J1200; J1650; J2930; U0003

== ENCOUNTER 2022-01-18 03:08 | Emergency (ER) | payer OTHER ==
[~2022-01-18] VITALS: Ht 167.6 cm; Wt 69.6 kg
[~2022-01-18 03:08] MED LIST changes: +ALBUTEROL2.5 MG/0.5 INH; +FLUTICASONE PRO16 GM NAS; +NEBULIZER UNIT XX; +SINGULAIR10 MG PO; +TRIAMCINOLONE A15 G3 TOP; +WIXELA 250-501 EACH INH; +ZYRTEC10 MG PO
[2022-01-18] MEDS ORDERED: CEPHALEXIN500 MG PO (03:37)
[2022-01-18] MEDS ORDERED: TRIAMCINOLONE A15 G1 TOP (03:37)
== END 2022-01-18 03:49 | disposition home or self-care (01) ==
LOC: ED 03:08
DX: L30.9 Dermatitis, unspecified (principal); L03.114 Cellulitis of left upper limb; L03.113 Cellulitis of right upper limb; F17.200 Nicotine dependence, unspecified, uncomplicated
CPT/HCPCS: A9270

== ENCOUNTER 2022-02-04 19:58 | Emergency (ER) | payer OTHER ==
[~2022-02-04] VITALS: Ht 167.6 cm; Wt 80.0 kg
--- OUTSIDE RECORDS SUMMARY | 2022-02-04 20:00 | XMS ---
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 Care History Medical/Surgical 08/06/2020 [facility] - PATIENT IS [place] ELIGIBLE, \T\middot;\T\nbsp; [facility] NEEDS. \T\middot;\T\nbsp; [facility] CAN [facility] PATIENTS SAME DAY FOR APTS IF PATIENT CALLS FIRST THING IN THE MORNING. 05/31/2018 [facility] -\T\middot; PATIENT HAS NOT SEEN PCP [...] YELLOW[place]WK ELIGIBLE - [facility]GENT [facility] NEEDS. - [facility] CAN SEE PATIENTS SAME DAY FOR APTS IF PATIENT CALLS FIRST THING IN THE MORNING. E.Zoila. VISIT COUNT (12 MO.) 4 [facility] TOTAL 4 NOTE: Visits indicate total known visits. ED/UCC VISIT TRACKING (12 MO.) 02/04/2022 19:59 [facility] TYPE: Emergency COMPLAINT: - SKIN PROBLEM 01/18/2022 03:08 [facility] TYPE: Emergency COMPLAINT: - ARM PAIN DIAGNOSES: - Nicotine dependence, unspecified, uncomplicated - Cellulitis of left upper limb - Dermatitis, unspecified - Cellulitis of right upper limb 11/08/2021 17:12 [facility] TYPE: Emergency COMPLAINT: - DIFF BREATHING 08/23/2021 03:11 [facility] TYPE: Emergency COMPLAINT: - SHORTNESS OF BREATH INPATIENT VISIT TRACKING (12 MO.) 11/10/2021 11:34 [facility] TYPE: Medical Surgical COMPLAINT: - SEVERE ASTHMA EXACERBATION DIAGNOSES: - Contact with and (suspected) exposure to COVID-19 - Contact with and (suspected) exposure to COVID-19 - 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 - Other specified postprocedural states - Other specified postprocedural states - 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 - Dermatitis, unspecified - Nicotine dependence, unspecified, uncomplicated - Dermatitis, unspecified - Nicotine dependence, unspecified, uncomplicated - Severe persistent asthma with (acute) exacerbation 08/23/2021 04:34 [facility] TYPE: Medical Surgical COMPLAINT: - ASTHMA EXACERBATION,HYPERCAPNIA DIAGNOSES: - Other problems related to lifestyle - Other specified postprocedural states - Other problems related to lifestyle - Contact with and (suspected) exposure to COVID-19 - Acute respiratory failure with hypercapnia - Atopic dermatitis, unspecified - Nicotine dependence, unspecified, uncomplicated - Other halfway (current) drug therapy - Nicotine dependence, unspecified, uncomplicated - Severe persistent asthma with (acute) exacerbation - Acute respiratory failure with hypercapnia - Atopic dermatitis, unspecified [email or web address]
== END 2022-02-04 21:23 | disposition home or self-care (01) ==
LOC: ED 19:58
DX: L30.9 Dermatitis, unspecified (principal); J45.909 Unspecified asthma, uncomplicated; F17.200 Nicotine dependence, unspecified, uncomplicated; Z79.899 Other long term (current) drug therapy
CPT/HCPCS: 99282

== ENCOUNTER 2022-05-02 13:43 | Emergency (ER) | payer OTHER ==
[~2022-05-02] VITALS: Ht 167.6 cm; Wt 79.8 kg
[2022-05-02] MEDS ORDERED: PREDNISONE20 MG PO (17:26)
[2022-05-02] MEDS ORDERED: IPRAT-ALBUT 0.5-3 ML INH (17:26)
[2022-05-02] MEDS ORDERED: VENTOLIN HFA18 GM INH (17:30)
== END 2022-05-02 17:50 | disposition home or self-care (01) ==
LOC: ED 13:43
DX: J45.901 Unspecified asthma with (acute) exacerbation (principal); F17.200 Nicotine dependence, unspecified, uncomplicated
CPT/HCPCS: 71045; 94640; 99285-25; J7512

== ENCOUNTER 2022-05-26 20:25 | Emergency (ER) | payer OTHER ==
[~2022-05-26] VITALS: Ht 167.6 cm; Wt 79.4 kg
--- OUTSIDE RECORDS SUMMARY | 2022-05-26 20:29 | XMS ---
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 Care History Medical/Surgical 08/06/2020 [facility] - PATIENT IS [place] ELIGIBLE, \T\middot;\T\nbsp; PLEASE REFER PATIENT TO [facility] FOR NON EMERGENT MEDICAL NEEDS. \T\middot;\T\nbsp; [facility] CAN SEE PATIENTS SAME DAY FOR APTS IF PATIENT CALLS FIRST THING IN THE MORNING. 05/31/2018 [facility] -\T\middot; PATIENT HAS NOT SEEN PCP [...] YELLOW[place]WK ELIGIBLE - PLEASE REFER PATIENT TO [facility] FOR NON EMERGENT MEDICAL NEEDS. - [facility] CAN SEE PATIENTS SAME DAY FOR APTS IF PATIENT CALLS FIRST THING IN THE MORNING. E.D. VISIT COUNT (12 MO.) 6 [facility] TOTAL 6 NOTE: Visits indicate total known visits. ED/UCC VISIT TRACKING (12 MO.) 05/26/2022 20:25 [facility] TYPE: Emergency COMPLAINT: - SHORTNESS OF BREATH 05/02/2022 13:[address] 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 - Unspecified asthma, uncomplicated 01/18/2022 03:08 [facility] TYPE: Emergency COMPLAINT: - ARM PAIN DIAGNOSES: - Cellulitis of left upper limb - Dermatitis, unspecified - Cellulitis of right upper limb - Nicotine dependence, unspecified, uncomplicated 11/08/2021 17:12 [facility] TYPE: Emergency COMPLAINT: - DIFF BREATHING 08/23/2021 03:11 [facility] TYPE: Emergency COMPLAINT: - SHORTNESS OF BREATH INPATIENT VISIT TRACKING (12 MO.) 11/10/2021 11:34 [facility] TYPE: Medical Surgical COMPLAINT: - SEVERE ASTHMA EXACERBATION DIAGNOSES: - 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 - Other specified postprocedural states - Other specified postprocedural states - Other long-term (current) drug therapy - Dermatitis, unspecified - Nicotine dependence, unspecified, uncomplicated - Dermatitis, unspecified - Nicotine dependence, unspecified, uncomplicated - Severe persistent asthma with (acute) exacerbation - Contact with and (suspected) exposure to COVID-19 - Contact with and (suspected) exposure to COVID-19 08/23/2021 04:34 [facility] TYPE: Medical Surgical COMPLAINT: - ASTHMA EXACERBATION,HYPERCAPNIA DIAGNOSES: - Other problems related to lifestyle - Contact with and (suspected) exposure to COVID-19 - Acute respiratory failure with hypercapnia - Atopic dermatitis, unspecified - Nicotine dependence, unspecified, uncomplicated - Other long-term (current) drug therapy - Nicotine dependence, unspecified, uncomplicated - Severe persistent asthma with (acute) exacerbation - Acute respiratory failure with hypercapnia - Atopic dermatitis, unspecified - Other problems related to lifestyle - Other specified postprocedural states [email or web address]
[2022-05-26] MEDS ORDERED: AZITHROMYCIN500 MG PO (22:03)
[2022-05-26] MEDS ORDERED: ADVAIR 250-501 EACH INH (22:03)
[2022-05-26] MEDS ORDERED: VENTOLIN HFA18 GM INH (22:03)
== END 2022-05-26 22:49 | disposition home or self-care (01) ==
LOC: ED 20:25
DX: J45.901 Unspecified asthma with (acute) exacerbation (principal); F17.200 Nicotine dependence, unspecified, uncomplicated; Z79.899 Other long term (current) drug therapy; Z20.822 Contact with and (suspected) exposure to COVID-19
CPT/HCPCS: 36415; 71045; 80053; 85025; 87502; 94644; 96374; 96375; 99285-25; J2930; J3475; U0003

== ENCOUNTER 2023-08-12 03:32 | Emergency (ER) | payer OTHER ==
[~2023-08-12] VITALS: Ht 167.6 cm; Wt 79.5 kg
[~2023-08-12 03:32] MED LIST changes: +AZITHROMYCIN500 MG PO
[2023-08-12] MEDS ORDERED: methylPREDNISolone SOD SUCC 125 MG/2 ML VIAL IV ONE (03:45)
[2023-08-12] MEDS ORDERED: ALBUTEROL SULFATE 0.5% 2.5 MG/0.5 ML VIAL INH ONE (03:45)
[2023-08-12 03:56] LABS: MCH 30.8 (27-36); RBC 5.53 M/ul (4.3-5.7)
[2023-08-12 03:59] LABS: BASOPHILS 0.8 % (0-2); EOSINOPHILS 12.7 % (0-6); HEMATOCRIT 51.1 % (35.0-50.0); HEMOGLOBIN 17.1 g/dL (12.0-18.0); LYMPHOCYTES 27.1 % (24-44); MCHC 33.4 g/dl (30-36); MCV 92.4 fl (81-99); MONOCYTES 8.9 % (0-12); NEUTROPHILS 50.5 % (39-80); PLATELET COUNT 346 K/uL (140-440); RDW 13.5 (10.5-15.0)
[2023-08-12 04:16] LABS: ALBUMIN 3.8 g/dL (3.4-5.0); ALBUMIN/GLOBULIN RATIO 0.9 (1.1-2.4); ANION GAP 14.6 (7-21); BILIRUBIN, TOTAL 0.6 ng/dL (0.2-1.0); BUN/CREATININE RATIO 9.52 (6.0-28.6); CALCIUM 8.6 mg/dL (8.5-10.1); CREATININE, SERUM 0.84 mg/dL (0.70-1.30); POTASSIUM 3.6 mmol/L (3.5-5.1)
[2023-08-12 04:48] LABS: INFLUENZA B NAA NEGATIVE (NEGATIVE); RESPIRATORY SYNCYTIAL VIR NAA NEGATIVE (NEGATIVE)
[2023-08-12] MEDS ORDERED: INHALER, ASSIST DEVICES 1 EACH SPACER MISC ONE (05:00)
[2023-08-12] MEDS ORDERED: ALBUTEROL SULFATE 8 GM HOME.PACK INH ONE (05:00)
[2023-08-12] MEDS ORDERED: IPRAT-ALBUT 0.5-3 ML INH (05:01)
[2023-08-12] MEDS ORDERED: ADVAIR 250-501 EACH INH (05:01)
[2023-08-12] MEDS ORDERED: PREDNISONE20 MG PO (05:02)
[2023-08-12 05:14] VITALS: BP 139/85
== END 2023-08-12 05:15 | disposition home or self-care (01) ==
LOC: ED 03:32
PROVIDERS: Internal Medicine
DX: J45.901 Unspecified asthma with (acute) exacerbation (principal); Z76.0 Encounter for issue of repeat prescription; F17.200 Nicotine dependence, unspecified, uncomplicated; Z79.52 Long term (current) use of systemic steroids; Z79.899 Other long term (current) drug therapy; Z79.51 Long term (current) use of inhaled steroids; Z79.2 Long term (current) use of antibiotics
CPT/HCPCS: 36415; 71045; 80053; 85025; 87502; 94644; 94664; 96374; 99285-25; J2930; U0002

== ENCOUNTER 2024-05-01 16:00 | Emergency (ER) | payer OTHER ==
[~2024-05-01] VITALS: Ht 167.6 cm; Wt 76.8 kg
[~2024-05-01 16:00] MED LIST changes: +MELOXICAM15 MG PO; +NEBULIZER1 EACH INH
[2024-05-01] MEDS ORDERED: DUPIXENT200 MG/1.1 (16:43)
[2024-05-01] MEDS ORDERED: MELOXICAM10 MG PO (17:35)
[2024-05-01] MEDS ORDERED: IBUPROFEN 600 MG TAB PO ONE (17:45)
[2024-05-01 17:51] VITALS: BP 130/73
== END 2024-05-01 17:52 | disposition home or self-care (01) ==
LOC: ED 16:00
DX: S99.911A Unspecified injury of right ankle, initial encounter (principal); M54.9 Dorsalgia, unspecified; F17.200 Nicotine dependence, unspecified, uncomplicated; X58.XXXA Exposure to other specified factors, initial encounter
CPT/HCPCS: 73610; A9270

== ENCOUNTER 2024-05-23 16:30 | Emergency (ER) | payer OTHER ==
[~2024-05-23] VITALS: Ht 167.6 cm; Wt 72.0 kg
[~2024-05-23 16:30] MED LIST changes: +DUPIXENT200 MG/1.1; +MELOXICAM10 MG PO
[2024-05-23] MEDS ORDERED: PREDNISONE20 MG PO (18:52)
[2024-05-23] MEDS ORDERED: predniSONE 20 MG TAB PO ONE (19:00)
[2024-05-23 19:12] VITALS: BP 132/74
== END 2024-05-23 19:13 | disposition home or self-care (01) ==
LOC: ED 16:30
DX: L30.9 Dermatitis, unspecified (principal); J45.909 Unspecified asthma, uncomplicated; F17.200 Nicotine dependence, unspecified, uncomplicated; Z59.02 Unsheltered homelessness; Z79.1 Long term (current) use of non-steroidal anti-inflammatories (NSAID); Z79.899 Other long term (current) drug therapy
CPT/HCPCS: 99283; J7512

== ENCOUNTER 2024-06-07 19:01 | Emergency (ER) | payer OTHER ==
[~2024-06-07] VITALS: Ht 167.6 cm; Wt 80.0 kg
[2024-06-08 01:15] LABS: BASOPHILS 0.5 % (0-2); EOSINOPHILS 3.5 % (0-6); HEMOGLOBIN 12.7 g/dL (12.0-18.0); LYMPHOCYTES 16.6 % (24-44); MCH 30.3 (27-36); MCHC 33.3 g/dl (30-36); MONOCYTES 7.8 % (0-12); NEUTROPHILS 71.6 % (39-80); PLATELET COUNT 410 K/uL (140-440); RBC 4.18 M/ul (4.3-5.7); RDW 14.2 (10.5-15.0)
[2024-06-08 01:30] LABS: ALBUMIN 2.8 g/dL (3.4-5.0); ALBUMIN/GLOBULIN RATIO 0.67 (1.1-2.4); ANION GAP 13.7 (7-21); BILIRUBIN, TOTAL 0.2 ng/dL (0.2-1.0); CALCIUM 8.3 mg/dL (8.5-10.1); POTASSIUM 3.7 mmol/L (3.5-5.1)
[2024-06-08 01:34] LABS: BUN/CREATININE RATIO 17.02 (6.0-28.6); CREATININE, SERUM 0.94 mg/dL (0.70-1.30)
[2024-06-08] MEDS ORDERED: CEPHALEXIN500 M1 PO (02:28)
[2024-06-08] MEDS ORDERED: predniSONE 20 MG TAB PO ONE (02:30)
[2024-06-08] MEDS ORDERED: CEPHALEXIN MONOHYDRATE 500 MG HOME.PACK PO ONE (02:30)
[2024-06-08 02:50] VITALS: BP 127/78
== END 2024-06-08 02:50 | disposition home or self-care (01) ==
LOC: ED 19:01
PROVIDERS: Internal Medicine
DX: L03.115 Cellulitis of right lower limb (principal); L30.9 Dermatitis, unspecified; F17.200 Nicotine dependence, unspecified, uncomplicated; Z79.899 Other long term (current) drug therapy
CPT/HCPCS: 36415; 80053; 80307; 85025; 99283; A9270; J7512

== ENCOUNTER 2024-09-16 16:19 | Emergency (ER) | payer OTHER ==
[~2024-09-16] VITALS: Ht 167.6 cm; Wt 72.9 kg
[2024-09-16 17:01] LABS: BASOPHILS 0.3 % (0-2); EOSINOPHILS 6.9 % (0-6); HEMATOCRIT 37.1 % (35.0-50.0); HEMOGLOBIN 12.4 g/dL (12.0-18.0); LYMPHOCYTES 15.3 % (24-44); MCH 29.2 (27-36); MCHC 33.4 g/dl (30-36); MCV 87.3 fl (81-99); MONOCYTES 6.8 % (0-12); NEUTROPHILS 70.7 % (39-80); PLATELET COUNT 519 K/uL (140-440); RBC 4.25 M/ul (4.3-5.7); RDW 14.7 (10.5-15.0)
[2024-09-16 17:18] LABS: ALBUMIN 2.5 g/dL (3.4-5.0); ALBUMIN/GLOBULIN RATIO 0.61 (1.1-2.4); ANION GAP 10.4 (7-21); BILIRUBIN, TOTAL 0.3 mg/dL (0.2-1.0); BUN/CREATININE RATIO 13.33 (6.0-28.6); CALCIUM 8.1 mg/dL (8.5-10.1); CREATININE, SERUM 0.75 mg/dL (0.70-1.30); POTASSIUM 3.4 mmol/L (3.5-5.1); PROTEIN, TOTAL 6.6 g/dL (6.4-8.2)
[2024-09-16] MEDS ORDERED: AMOX TR-K CLV1 EAC1 PO (17:29)
[2024-09-16] MEDS ORDERED: BACTRIM DS TAB1 EACH PO (17:29)
[2024-09-16 17:35] VITALS: BP 122/71
[2024-09-16 18:04] LABS: ERYTHROCYTE SEDIMENTATION RATE 19
== END 2024-09-16 17:35 | disposition home or self-care (01) ==
LOC: ED 16:19
PROVIDERS: Emergency Medicine
DX: L08.9 Local infection of the skin and subcutaneous tissue, unspecified (principal); J45.909 Unspecified asthma, uncomplicated; Z59.00 Homelessness unspecified; F17.200 Nicotine dependence, unspecified, uncomplicated
CPT/HCPCS: 36415; 73130; 80053; 85025; 85651; 86140; 87070; 87205; 99283

== ENCOUNTER 2024-09-19 12:57 | Emergency (ER) | payer OTHER ==
[~2024-09-19] VITALS: Ht 167.6 cm; Wt 68.8 kg
[~2024-09-19 12:57] MED LIST changes: +AMOX TR-K CLV1 EAC1 PO
[2024-09-19 14:45] LABS: HEMOGLOBIN 13.4 g/dL (12.0-18.0); MCH 29.2 (27-36); MCHC 33.6 g/dl (30-36); MCV 86.9 fl (81-99); RDW 15.1 (10.5-15.0)
[2024-09-19] MEDS ORDERED: PIPERACILLIN/TAZOBACTAM 4.5 GM in SODIUM CHLORIDE 0.9% 100 ML IV SCH (14:45)
[2024-09-19] MEDS ORDERED: DAPTOmycin 500 MG/10 ML VIAL IV ONE (14:45)
[2024-09-19] MEDS ORDERED: DEXTROSE 5% IV ONE (14:45)
[2024-09-19] MEDS ORDERED: SODIUM CHLORIDE 0.9% 2,000 ML IV SCH (14:45)
[2024-09-19] MEDS ORDERED: VANCOMYCIN HCL IV ONE (14:45)
[2024-09-19 15:00] LABS: ALBUMIN 2.8 g/dL (3.4-5.0); ALBUMIN/GLOBULIN RATIO 0.57 (1.1-2.4); ANION GAP 12.1 (7-21); BILIRUBIN, TOTAL 0.3 mg/dL (0.2-1.0); BUN/CREATININE RATIO 12.04 (6.0-28.6); CALCIUM 8.6 mg/dL (8.5-10.1); CREATININE, SERUM 0.83 mg/dL (0.70-1.30); POTASSIUM 4.1 mmol/L (3.5-5.1); PROTEIN, TOTAL 7.7 g/dL (6.4-8.2)
[2024-09-19 15:04] LABS: BANDS, MANUAL DIFF 1; EOSINOPHILS, MANUAL DIFF 4; LYMPHOCYTES, MANUAL DIFF 9; MONOCYTES, MANUAL DIFF 3; NEUTROPHILS, MANUAL DIFF 82
[2024-09-19 15:06] LABS: PLATELET COUNT 548 K/uL (140-440)
[2024-09-19 15:21] LABS: LACTIC ACID, BLOOD 1.3 mmol/L (0.4-2.0)
[2024-09-19 19:32] VITALS: BP 116/68
== END 2024-09-19 19:32 | disposition short-term general hospital (02) ==
LOC: ED 12:57
PROVIDERS: Emergency Medicine
DX: L02.511 Cutaneous abscess of right hand (principal); J45.909 Unspecified asthma, uncomplicated; F17.200 Nicotine dependence, unspecified, uncomplicated
CPT/HCPCS: 36415; 73130; 73201; 80053; 83605; 85025; 87040; 99285-25; J0878; J2543; J7030

== ENCOUNTER 2024-11-02 23:43 | Emergency (ER) | payer OTHER | END 2024-11-03 02:10 | disposition home or self-care (01) | LOC: ED 23:43 | DX: L02.01 Cutaneous abscess of face (principal); L02.416 Cutaneous abscess of left lower limb; F17.200 Nicotine dependence, unspecified, uncomplicated; J45.909 Unspecified asthma, uncomplicated ==

== ENCOUNTER 2025-04-21 13:27 | Emergency (ER) | payer OTHER ==
[~2025-04-21] VITALS: Ht 167.6 cm; Wt 79.0 kg
[2025-04-21 15:18] VITALS: BP 142/64
== END 2025-04-21 15:25 | disposition home or self-care (01) ==
LOC: ED 13:27
DX: S00.83XA Contusion of other part of head, initial encounter (principal); F17.200 Nicotine dependence, unspecified, uncomplicated; Y09 Assault by unspecified means
CPT/HCPCS: 70450; 99284-25

== ENCOUNTER 2025-04-30 05:25 | Emergency (ER) | payer OTHER ==
[~2025-04-30] VITALS: Ht 167.6 cm; Wt 82.9 kg
[2025-04-30] MEDS ORDERED: DOXYCYCLINE HY100 MG PO (06:34)
[2025-04-30 07:30] VITALS: BP 138/87
== END 2025-04-30 07:30 | disposition home or self-care (01) ==
LOC: ED 05:25
DX: L03.116 Cellulitis of left lower limb (principal); J45.909 Unspecified asthma, uncomplicated; F17.200 Nicotine dependence, unspecified, uncomplicated
CPT/HCPCS: 99283

== ENCOUNTER 2025-05-05 22:28 | Emergency (ER) | payer OTHER | END 2025-05-06 00:58 | disposition home or self-care (01) | LOC: ED 22:28 | DX: J45.901 Unspecified asthma with (acute) exacerbation (principal); F17.200 Nicotine dependence, unspecified, uncomplicated ==

== ENCOUNTER 2025-05-24 05:21 | Emergency (ER) | payer OTHER ==
[~2025-05-24] VITALS: Ht 167.6 cm; Wt 79.5 kg
[~2025-05-24 05:21] MED LIST changes: +METHYLPREDNISOLO4 M1 PO
[2025-05-24] MEDS ORDERED: VENTOLIN HFA18 GM INH (05:41)
[2025-05-24] MEDS ORDERED: ALBUTEROL/IPRATROPIUM 3 ML NEB INH ONE (05:45)
[2025-05-24 06:09] LABS: MCH 27.3 PG (25.7-32.2); MCHC 32.0 g/dL (32.3-36.5); MCV 85.1 fL (79.0-92.2); RBC 5.43 M/uL (4.63-6.08)
[2025-05-24 06:23] LABS: BANDS, MANUAL DIFF 4; BASOPHILS, MANUAL DIFF 1; LYMPHOCYTES, MANUAL DIFF 23; MONOCYTES, MANUAL DIFF 5; NEUTROPHILS, MANUAL DIFF 45
[2025-05-24 06:37] LABS: ALT (SGPT) 26.0 U/L (14-59); AST (SGOT) 20.0 U/L (15-37); GLOMERULAR FILTRATION RATE,EST 123.0 mL/min (>60); PROTEIN, TOTAL 8.3 g/dL (6.4-8.2); UREA NITROGEN 15.0 mg/dL (7-18)
[2025-05-24 06:57] LABS: CORONAVIRUS COVID-19 AG NEGATIVE (NEGATIVE)
[2025-05-24 07:54] VITALS: BP 144/90
--- NOTE | 2025-05-25 22:17 | EKG ---
[facility] [address] [place] [address] Signed Normal sinus rhythm Normal ECG When compared with ECG of 22-JUL-2019 21:45, No significant change was found Confirmed by Roosevelt Hill MD () on 05/25/2025 10:17:27 PM Electronically Signed By: ROOSEVELT HILL MD 05/25/25 2217 PATIENT NAME: MEGA PACHECO Electrocardiogram DATE OF : [birth year] PHYSICIAN: ROOSEVELT HILL MD REPORT #: [id number] REPORT IS CONFIDENTIAL AND NOT TO BE RELEASED WITHOUT AUTHORIZATION
[2025-05-28 09:18] LABS: EOSINOPHILS, MANUAL DIFF 22
== END 2025-05-24 07:55 | disposition home or self-care (01) ==
LOC: ED 05:21
PROVIDERS: Internal Medicine
DX: J45.909 Unspecified asthma, uncomplicated (principal); F17.200 Nicotine dependence, unspecified, uncomplicated
CPT/HCPCS: 36415; 71045; 80053; 83880; 84484; 85025; 93005; 93010; 94640; 96374; 99285-25; J2919

== ENCOUNTER 2025-05-26 20:48 | Emergency (ER) | payer OTHER ==
[~2025-05-26] VITALS: Ht 167.6 cm; Wt 73.9 kg
[2025-05-26] MEDS ORDERED: ALBUTEROL/IPRATROPIUM 3 ML NEB INH ONE (21:00)
[2025-05-26] MEDS ORDERED: BUDESONIDE 0.5 MG/2 ML VIAL INH ONE (21:00)
[2025-05-26] MEDS ORDERED: ALBUTEROL SULFATE 0.5% 2.5 MG/0.5 ML VIAL INH ONE (21:00)
[2025-05-26] MEDS ORDERED: DEXAMETHASONE SOD PHOS 10 MG/ML VIAL IM ONE (21:15)
[2025-05-26] MEDS ORDERED: ALBUTEROL SULFATE 8 GM HOME.PACK INH ONE (22:15)
[2025-05-26] MEDS ORDERED: methylPREDNISolone 4 MG HOME.PACK PO ONE (22:15)
[2025-05-26] MEDS ORDERED: AZITHROMYCIN 250 MG HOME.PACK PO ONE (22:15)
[2025-05-26 22:54] VITALS: BP 147/91
[2025-05-27] MEDS ORDERED: PREDNISONE20 MG PO (13:22)
== END 2025-05-26 22:48 | disposition home or self-care (01) ==
LOC: ED 20:48
DX: J45.901 Unspecified asthma with (acute) exacerbation (principal); F17.200 Nicotine dependence, unspecified, uncomplicated; Z79.899 Other long term (current) drug therapy
CPT/HCPCS: 94640; 94644; 94664; 96372; 99284; J1100

== ENCOUNTER 2025-05-27 11:45 | Emergency (ER) | payer OTHER ==
[~2025-05-27] VITALS: Ht 167.6 cm; Wt 73.9 kg
--- OUTSIDE RECORDS SUMMARY | ~2025-05-27 | XMS | Continuity of Care Document ---
Demographics + + + | Address | [address] | | | [place] [address] | + + + | Preferred Language | Unknown | + + + | Marital Status | Never | + + + | Yarsanism Affiliation | Unknown | + + + | Race | or | + + + | Ethnic Group | Not or | + + + Author + + + | Author | [facility] | + + + | Organization | [facility] | + + + | Address | [address] | | | [place] [address] | + + + | Phone | | + + + Care Team Providers + + + + | Care Banana Expert Name | Role | Phone | + + + + Unavailable | Unavailable | + + + + Unavailable | Unavailable | + + + + Allergies and Intolerances + + + + + + | date | description | facility | reaction | severity | + + + + + + | 2025-05-24 | UNK | [facility] - | (no reaction) | Moderate | | 00:00 | | [place] | | | | [facility] | | | + + + + + + Encounters No information. Functional Status No information. Immunizations + + + + | date | description | facility | + + + + | (no date) | Influenza, Injectable, | [facility] | | | Quadrivalent | [facility] | + + + + | (no date) | Pneumococcal | [facility] | | | Polysaccharide PPV23 | [facility] | + + + + Medications + + + + | date | description | facility | + + + + | (no date) | MOMETASONE/FORMOTEROL | [facility] | | | | [facility] | + + + + | 2025-04-30 00:00 | DOXYCYCLINE HYCLATE | [facility] | | | | [facility] | + + + + | (no date) | OMEPRAZOLE | [facility] | | | | [facility] | + + + + | (no date) | predniSONE | [facility] | | | | [facility] | + + + + | (no date) | LORATADINE | [facility] | | | | [facility] | + + + + | (no date) | Dupilumab | [facility] | | | | [facility] | + + + + | (no date) | CALAMINE | [facility] | | | | [facility] | + + + + | (no date) | ALBUTEROL SULFATE | [facility] | | | | [facility] | + + + + | (no date) | ALBUTEROL SULFATE | [facility] | | | | [facility] | + + + + | (no date) | MOMETASONE FUROATE | [facility] | | | | [facility] | + + + + | 2025-05-05 00:00 | METHYLPREDNISOLONE | [facility] | | | | [facility] | + + + + | (no date) | IPRATROPIUM BROMIDE | [facility] | | | | [facility] | + + + + | (no date) | ALBUTEROL SULFATE | [facility] | | | | [facility] | + + + + Problems + + + + | date | description | facility | + + + + | 2025-04-21 00:00 | Contusion of face | [facility] | | | | [facility] | + + + + Procedures No information. Results/Labs +--------+--------+ +---------+--------+---------+ | test | date | facility | value | unit | notes | +--------+--------+ +---------+--------+---------+ + + | Result panel 1 | + + + + + +--------+ + + | Neutrophils | 2025-05-05 | | 58.3 | (missing) | (missing) | | NFr Bld | 22:40:08 | [facility] | | | | | Auto [facility] | | | | + + + +--------+ + + + + | Result panel 2 | + + + + + +--------+ + + | Lymphocytes | 2025-05-05 | | 15.6 | (missing) | (missing) | | NFr Bld | 22:40:08 | [facility] | | | | | Auto | [facility] | | | | + + + +--------+ + + + + | Result panel 3 | + + + + + +-------+ + + | Monocytes | 2025-05-05 | | 6.6 | (missing) | (missing) | | NFr Bld Auto | 22:40:08 | [facility] | | | | + + + +-------+ + + + + | Result panel 4 | + + + + + +--------+ + + | Eosinophil | 2025-05-05 | | 18.4 | (missing) | (missing) | | NFr Bld Auto | 22:40:08 | [facility] | | | | + + + +--------+ + + + + | Result panel 5 | + + + + + +--------+ + + | Neutrophils | 2025-05-05 | | 58.3 | (missing) | (missing) | | NFr Bld | 22:40:08 | [facility] | | | | | Auto | [facility] | | | | + + + +--------+ + + + + | Result panel 6 | + + + + + +--------+ + + | Lymphocytes | 2025-05-05 | | 15.6 | (missing) | (missing) | | NFr Bld | 22:40:08 | [facility] | | | | | Auto | [facility] | | | | + + + +--------+ + + + + | Result panel 7 | + + + + + +-------+ + + | Monocytes | 2025-05-05 | | 6.6 | (missing) | (missing) | | NFr Bld Auto | 22:40:08 | [facility] | | | | + + + +-------+ + + + + | Result panel 8 | + + + + + +--------+ + + | Eosinophil | 2025-05-05 | | 18.4 | (missing) | (missing) | | NFr Bld Auto | 22:40:08 | [facility] | | | | + + + +--------+ + + + + | Result panel 9 | + + + + + +-------+ + + | Basophils | 2025-05-05 | | 0.8 | (missing) | (missing) | | NFr Bld Auto | 22:40:08 | [facility] | | | | + + + +-------+ + + + + | Result panel 10 | + + + + + +-------+ + + | Basophils | 2025-05-05 | | 0.8 | (missing) | (missing) | | NFr Bld Auto | :40:08 | [facility] | | | | + + + +-------+ + + + + | Result panel 11 | + + + + + +---------+ + + | pH BldV | 2025-05-05 | | 7.413 | (missing) | (missing) | | | 22:40:08 | [facility] | | | | + + + +---------+ + + + + | Result panel 12 | + + + + + +------+ + + | Ethanol | 2025-05-05 | | <3 | (missing) | (missing) | | SerPl-sCnc | 22:40:08 | [facility] | | | | + + + +------+ + + + + | Result panel 13 | + + + + + +---------+ + + | pH BldV | 2025-05-05 | | 7.413 | (missing) | (missing) | | | 22:40:08 | [facility] | | | | + + + +---------+ + + + + | Result panel 14 | + + + + + +------+ + + | Ethanol | 2025-05-05 | | <3 | (missing) | (missing) | | [facility] | 22:40:08 | [facility] | | | | + + + +------+ + + + + | Result panel 15 | + + + + + +--------+ + + | Hgb | 2025-05-24 | | 14.8 | (missing) | (missing) | | Bld-mCnc | 06:04:08 | [facility] | | | | | | | - | | | | | | | [facility] | | | | + + + +--------+ + + + + | Result panel 16 | + + + + + +--------+ + + | Hct VFr.DF | 2025-05-24 | | 46.2 | (missing) | (missing) | | Bld Auto | 06:04:08 | [facility] | | | | + + + +--------+ + + + + | Result panel 17 | + + + + + +--------+ + + | RBC Auto | 2025-05-24 | | 85.1 | (missing) | (missing) | | | 06:04:08 | [facility] | | | | + + + +--------+ + + + + | Result panel 18 | + + + + + +--------+ + + | MCH RBC Qn | 2025-05-24 | | 27.3 | (missing) | (missing) | | Auto | 06:04:08 | [facility] | | | | + + + +--------+ + + + + | Result panel 19 | + + + + + +--------+ + + | MCHC RBC | 2025-05-24 | | 32.0 | (missing) | (missing) | | Auto-EntMCnc | 06:04:08 | [facility] | | | | + + + +--------+ + + + + | Result panel 20 | + + + + + +-------+ + + | Platelet # | 2025-05-24 | | 528 | (missing) | (missing) | | Bld Auto | 06:04:08 | [facility] | | | | + + + +-------+ + + + + | Result panel 21 | + + + + + +------+ + + | Neuts Seg | 2025-05-24 | | 45 | (missing) | (missing) | | NFr Bld | 06:04:08 | [facility] | | | | | Manual | [facility] | | | | + + + +------+ + + + + | Result panel 22 | + + + + + +------+ + + | Lymphocytes | 2025-05-24 | | 23 | (missing) | (missing) | | NFr Bld | 06:04:08 | [facility] | | | | | Manual | [facility] | | | | + + + +------+ + + + + | Result panel 23 | + + + + + +-----+ + + | Monocytes | 2025-05-24 | | 5 | (missing) | (missing) | | NFr Bld | 06:04:08 | [facility] | | | | | Manual | [facility] | | | | + + + +-----+ + + + + | Result panel 24 | + + + + + +------+ + + | Eosinophil | 2025-05-24 | | 22 | (missing) | (missing) | | NFr Bld | 06:04:08 | [facility] | | | | | Manual | [facility] | | | | + + + +------+ + + + + | Result panel 25 | + + + + + +-----+ + + | Basophils | 2025-05-24 | | 1 | (missing) | (missing) | | NFr Bld | 06:04:08 | [facility] | | | | | Manual | [facility] | | | | + + + +-----+ + + + + | Result panel 26 | + + + + + +-----+ + + | Neuts Band | 2025-05-24 | | 4 | (missing) | (missing) | | NFr Bld | 06:04:08 | [facility] | | | | | Manual | [facility] | | | | + + + +-----+ + + + + | Result panel 27 | + + + + + +------+---------+ + | Glucose | 2025-05-24 | | 97 | mg/dL | (missing) | | SerPl-mCnc | 06:04:08 | [facility] | | | | | [facility] | | | | + + + +------+---------+ + + + | Result panel 28 | + + + + + +------+---------+ + | BUN | 2025-05-24 | | 15 | mg/dL | (missing) | | SerPl-mCmisael | 06:04:08 | [facility] | | | | [facility] | | | | + + + +------+---------+ + + + | Result panel 29 | + + + + + +--------+---------+ + | Creat | 2025-05-24 | | 0.75 | mg/dL | (missing) | | SerPl-mCmisael | 06:04:08 | [facility] | | | [facility] | | | | + + + +--------+---------+ + + + | Result panel 30 | + + + + + +-------+ + + | eGFRcr | 2025-05-24 | | 123 | (missing) | (missing) | | SerPlBld | 06:04:08 | [facility] | | | | | CKD-EPI 2020 | [facility] | | | | + + + +-------+ + + + + | Result panel 31 | + + + + + +---------+ + + | BUN/Creat | 2025-05-24 | | 20.00 | (missing) | (missing) | | SerPl | 06:04:08 | [facility] | | | | | [facility] | | | | + + + +---------+ + + + + | Result panel 32 | + + + + + +-------+ + + | Sodium | 2025-05-24 | | 141 | (missing) | (missing) | | [facility] | 06:04:08 | [facility] | | | | [facility] | | | | + + + +-------+ + + + + | Result panel 33 | + + + + + +-------+ + + | Potassium | 2025-05-24 | | 3.7 | (missing) | (missing) | | SerPl-sCnc | 06:04:08 | [facility] | [facility] | | | | + + + +-------+ + + + + | Result panel 34 | + + + + + +-------+ + + | Chloride | 2025-05-24 | | 105 | (missing) | (missing) | | SerPl-sCnc | 06:04:08 | [facility] | [facility] | | | | + + + +-------+ + + + + | Result panel 35 | + + + + + +------+ + + | CO2 | 2025-05-24 | | 27 | (missing) | (missing) | | SerPl-sCnc | 06:04:08 | [facility] | | | [facility] | | | | + + + +------+ + + + + | Result panel 36 | + + + + + +--------+ + + | Anion Gap | 2025-05-24 | | 12.7 | (missing) | (missing) | | SerPl | 06:04:08 | [facility] | | | | | Calculated.4 | [facility] Ions-sCnc | | [facility] | | | | + + + +--------+ + + + + | Result panel 37 | + + + + + +-------+---------+ + | Calcium | 2025-05-24 | | 8.7 | mg/dL | (missing) | | SerPl-mCnc | 06:04:08 | [facility] | | | | | | [facility] | | | | + + + +-------+---------+ + + + | Result panel 38 | + + + + + +-------+ + + | Prot | 2025-05-24 | | 8.3 | (missing) | (missing) | | SerPl-mCnc | 06:04:08 | [facility] | [facility] | | | | + + + +-------+ + + + + | Result panel 39 | + + + + + +-------+ + + | Albumin | 2025-05-24 | | 3.4 | (missing) | (missing) | | [facility] | 06:04:08 | [facility] | | [facility] | | | | + + + +-------+ + + + + | Result panel 40 | + + + + + +-------+ + + | Globulin | 2025-05-24 | | 4.9 | (missing) | (missing) | | Ser-Juliet | 06:04:08 | [facility] | | | | | [facility] | | | | + + + +-------+ + + + + | Result panel 41 | + + + + + +--------+ + + | | 2025-05-24 | | 0.69 | (missing) | (missing) | | Albumin/Glob | 06:04:08 | [facility] | | | | | SerPl | [facility] | | | | + + + +--------+ + + + + | Result panel 42 | + + + + + +-------+---------+ + | Bilirub | 2025-05-24 | | 0.4 | mg/dL | (missing) | | SerPl-mCnc | 06:04:08 | [facility] | | | | + + + +-------+---------+ + + + | Result panel 43 | + + + + + +------+ + + | AST | 2025-05-24 | | 20 | (missing) | (missing) | | SerPl-cCnc | 06:04:08 | [facility] | | | | + + + +------+ + + + + | Result panel 44 | + + + + + +------+ + + | ALT | 2025-05-24 | | 26 | (missing) | (missing) | | SerPl-cCnc | 06:04:08 | [facility] | | | | + + + +------+ + + + + | Result panel 45 | + + + + + +-------+ + + | ALP | 2025-05-24 | | 132 | (missing) | (missing) | | SerPl-cCnc | 06:04:08 | [facility] | [facility] | | | | + + + +-------+ + + + + | Result panel 46 | + + + + + +--------+ + + | Troponin I | 2025-05-24 | | 41.0 | (missing) | (missing) | | SerPl | 06:04:08 | [facility] | | | | | HS-Jul[facility] | [facility] | | | | + + + +--------+ + + + + | Result panel 47 | + + + + + +--------+ + + | WBC # Bld | 2025-05-24 | | 9.45 | (missing) | (missing) | | Auto | 06:04:08 | [facility] | | | | + + + +--------+ + + + + | Result panel 48 | + + + + + +--------+ + + | RBC # Bld | 2025-05-24 | | 5.43 | (missing) | (missing) | | Auto | 06:04:08 | [facility] | | | | + + + +--------+ + + + + | Result panel 49 | + + + + + +--------+ + + | Hgb | 2025-05-24 | | 14.8 | (missing) | (missing) | | Bld-mCnc | 06:04:08 | [facility] | [facility] | | | | + + + +--------+ + + + + | Result panel 50 | + + + + + +--------+ + + | Hct VFr.DF | 2025-05-24 | | 46.2 | (missing) | (missing) | | Bld Auto | 06:04:08 | [facility] | | | | + + + +--------+ + + + + | Result panel 51 | + + + + + +--------+ + + | RBC Auto | 2025-05-24 | | 85.1 | (missing) | (missing) | | | 06:04:08 | [facility] | | | | + + + +--------+ + + + + | Result panel 52 | + + + + + +--------+ + + | MCH RBC Qn | 2025-05-24 | | 27.3 | (missing) | (missing) | | Auto | 06:04:08 | [facility] | [facility] | | | | + + + +--------+ + + + + | Result panel 53 | + + + + + +--------+ + + | MCHC RBC | 2025-05-24 | | 32.0 | (missing) | (missing) | | Auto-EntMCnc | 06:04:08 | [facility] | [facility] | | | | + + + +--------+ + + + + | Result panel 54 | + + + + + +-------+ + + | Platelet # | 2025-05-24 | | 528 | (missing) | (missing) | | Bld Auto | 06:04:08 | [facility] | | | | + + + +-------+ + + + + | Result panel 55 | + + + + + +------+ + + | Neuts Seg | 2025-05-24 | | 45 | (missing) | (missing) | | NFr Bld | 06:04:08 | [facility] | | | | | Manual | [facility] | | | | + + + +------+ + + + + | Result panel 56 | + + + + + +------+ + + | Lymphocytes | 2025-05-24 | | 23 | (missing) | (missing) | | NFr Bld | 06:04:08 | [facility] | | | | | Manual | [facility] | | | | + + + +------+ + + + + | Result panel 57 | + + + + + +-----+ + + | Monocytes | 2025-05-24 | | 5 | (missing) | (missing) | | NFr Bld | 06:04:08 | [facility] | | | | | Manual | [facility] | | | | + + + +-----+ + + + + | Result panel 58 | + + + + + +------+ + + | Eosinophil | 2025-05-24 | | 22 | (missing) | (missing) | | NFr Bld | 06:04:08 | [facility] | | | | | Manual | [facility] | | | | + + + +------+ + + + + | Result panel 59 | + + + + + +-----+ + + | Basophils | 2025-05-24 | | 1 | (missing) | (missing) | | NFr Bld | 06:04:08 | [facility] | | | | | Manual | [facility] | | | | + + + +-----+ + + + + | Result panel 60 | + + + + + +-----+ + + | Neuts Band | 2025-05-24 | | 4 | (missing) | (missing) | | NFr Bld | 06:04:08 | [facility] | | | | | Manual | [facility] | | | | + + + +-----+ + + + + | Result panel 61 | + + + + + +------+---------+ + | Glucose | 2025-05-24 | | 97 | mg/dL | (missing) | | SerPl-mCnc | 06:04:08 | [facility] | | | | + + + +------+---------+ + + + | Result panel 62 | + + + + + +------+---------+ + | BUN | 2025-05-24 | | 15 | mg/dL | (missing) | | [facility] | 06:04:08 | [facility] | | [facility] | | | | + + + +------+---------+ + + + | Result panel 63 | + + + + + +--------+---------+ + | Creat | 2025-05-24 | | 0.75 | mg/dL | (missing) | | [facility] | 06:04:08 | [facility] | | | | + + + +--------+---------+ + + + | Result panel 64 | + + + + + +-------+ + + | eGFRcr | 2025-05-24 | | 123 | (missing) | (missing) | | SerPlBld | 06:04:08 | [facility] | | | | | CKD-EPI 2020 | [facility] | | | | + + + +-------+ + + + + | Result panel 65 | + + + + + +---------+ + + | BUN/Creat | 2025-05-24 | | 20.00 | (missing) | (missing) | | SerPl | 06:04:08 | [facility] | [facility] | | | | + + + +---------+ + + + + | Result panel 66 | + + + + + +-------+ + + | Sodium | 2025-05-24 | | 141 | (missing) | (missing) | | SerPl-sCnc | 06:04:08 | [facility] | | | | + + + +-------+ + + + + | Result panel 67 | + + + + + +-------+ + + | Potassium | 2025-05-24 | | 3.7 | (missing) | (missing) | | SerPl-sCnc | 06:04:08 | [facility] | | | | + + + +-------+ + + + + | Result panel 68 | + + + + + +-------+ + + | Chloride | 2025-05-24 | | 105 | (missing) | (missing) | | [facility] | 06:04:08 | [facility] | | | | + + + +-------+ + + + + | Result panel 69 | + + + + + +------+ + + | CO2 | 2025-05-24 | | 27 | (missing) | (missing) | | SerPl-sCnc | 06:04:08 | [facility] | [facility] | | | | + + + +------+ + + + + | Result panel 70 | + + + + + +--------+ + + | Anion Gap | 2025-05-24 | | 12.7 | (missing) | (missing) | | SerPl | 06:04:08 | [facility] | | | | | Calculated.4 | [facility] | Ions-sCnc | | [facility] | | | | + + + +--------+ + + + + | Result panel 71 | + + + + + +-------+---------+ + | Calcium | 2025-05-24 | | 8.7 | mg/dL | (missing) | | SerPmariana-Juliet | 06:04:08 | [facility] | | | [facility] | | | | + + + +-------+---------+ + + + | Result panel 72 | + + + + + +-------+ + + | Prot | 2025-05-24 | | 8.3 | (missing) | (missing) | | [facility] | 06:04:08 | [facility] | | [facility] | | | | + + + +-------+ + + + + | Result panel 73 | + + + + + +-------+ + + | Albumin | 2025-05-24 | | 3.4 | (missing) | (missing) | | SerPl-mCnc | 06:04:08 | [facility] | [facility] | | | | + + + +-------+ + + + + | Result panel 74 | + + + + + +--------+ + + | WBC # Bld | 2025-05-24 | | 9.45 | (missing) | (missing) | | Auto | 06:04:08 | [facility] | | | | + + + +--------+ + + + + | Result panel 75 | + + + + + +-------+ + + | Globulin | 2025-05-24 | | 4.9 | (missing) | (missing) | | Ser-mCnc | 06:04:08 | [facility] | | | | + + + +-------+ + + + + | Result panel 76 | + + + + + +--------+ + + | | 2025-05-24 | | 0.69 | (missing) | (missing) | | Albumin/Glob | 06:04:08 | [facility] | | | | | [facility] | | | | + + + +--------+ + + + + | Result panel 77 | + + + + + +-------+---------+ + | Bilirub | 2025-05-24 | | 0.4 | mg/dL | (missing) | | SerPl-mCmisael | 06:04:08 | [facility] | | | | + + + +-------+---------+ + + + | Result panel 78 | + + + + + +------+ + + | AST | 2025-05-24 | | 20 | (missing) | (missing) | | Ser[facility]-cCnc | 06:04:08 | [facility] | | | | + + + +------+ + + + + | Result panel 79 | + + + + + +------+ + + | ALT | 2025-05-24 | | 26 | (missing) | (missing) | | Ser[facility]-cCnc | 06:04:08 | [facility] | | | | + + + +------+ + + + + | Result panel 80 | + + + + + +-------+ + + | ALP | 2025-05-24 | | 132 | (missing) | (missing) | | Ser[facility]-cCnc | 06:04:08 | [facility] | | | | + + + +-------+ + + + + | Result panel 81 | + + + + + +--------+ + + | Troponin I | 2025-05-24 | | 41.0 | (missing) | (missing) | | SerPl | 06:04:08 | [facility] | | | | | HS[facility]mCnc [facility] | | | | + + + +--------+ + + + + | Result panel 82 | + + + + + +--------+ + + | RBC # Bld | 2025-05-24 | | 5.43 | (missing) | (missing) | | Auto | 06:04:08 | [facility] | | | | + + + +--------+ + + + + | Result panel 83 | + + + + + + + + + | FLUAV Ag | 2025-05-24 | | NEGATIVE | (missing) | (missing) | | Upper resp | 06:23:08 | [facility] | | | | | Ql IAAnnamar[facility]apid [facility] | | | | + + + + + + + + + | Result panel 84 | + + + + + + + + + | FLUBV Ag | 2025-05-24 | | NEGATIVE | (missing) | (missing) | | Upper resp | 06:23:08 | [facility] | | | | | Ql IA.rapid | [facility] | | | [facility] | | | | + + + + + + + + + | Result panel 85 | + + + + + + + + + | | 2025-05-24 | | NEGATIVE | (missing) | (missing) | | SARS-CoV+PREM | 06:23:08 | [facility] | | | | | S-CoV-2 Ag | | - | | | | | Resp Ql | | [facility] | | | [facility] | | [facility] | | | | + + + + + + + + + | Result panel 86 | + + + + + + + + + | Annotation | 2025-05-24 | | SEE BELOW | (missing) | (missing) | | comment Imp | 06:23:08 | [facility] | | | | | | [facility] - [facility] | [facility] | | | | + + + + + + + + + | Result panel 87 | + + + + + + + + + | FLUAV Ag | 2025-05-24 | | NEGATIVE | (missing) | (missing) | | Upper resp | 06:23:08 | [facility] | | | | | Ql [place].rapid | | - [facility] | | [facility] | | [facility] | | [facility] | | | | + + + + + + + + + | Result panel 88 | + + + + + + + + + | FLUBV Ag | 2025-05-24 | | NEGATIVE | (missing) | (missing) | | Upper resp | 06:23:08 | [facility] | | | | | Ql [place].rapid | [facility] - [facility] | | | | + + + + + + + + + | Result panel 89 | + + + + + + + + + | | 2025-05-24 | | NEGATIVE | (missing) | (missing) | | SARS-CoV+PREM | 06:23:08 | [facility] | | | | | S-CoV-2 Ag | | - Saint | | | | | Resp Ql | | [facility] | | [facility] | rapid | | [facility] | | | | + + + + + + + + + | Result panel 90 | + + + + + + + + + | Annotation | 2025-05-24 | | SEE BELOW | (missing) | (missing) | | comment Imp | 06:23:08 | [facility] | | | [facility] - [facility] | | | | + + + + + + + Social History +--------+ + + | date | description | facility | +--------+ + + Vital Signs + + + +---------+ | date | measurement | value | units | + + + +---------+ | 2025-04-30 00:00 | BMI | 29.5 | kg/m2 | + + + +---------+ | 2025-04-30 00:00 | BP_diastolic | 87 | mmHg | + + + +---------+ | 2025-04-30 00:00 | BP_systolic | 138 | mmHg | + + + +---------+ | 2025-04-30 00:00 | heart_rate | 96 | /min | + + + +---------+ | 2025-04-30 00:00 | height_metric | 167.64 | cm | + + + +---------+ | 2025-04-30 00:00 | height_standard | 66 | in | + + + +---------+ | 2025-04-30 00:00 | o2_saturation | 98 | % | + + + +---------+ | 2025-04-30 00:00 | respiration_rate | 14 | /min | + + + +---------+ | 2025-04-30 00:00 | | 98.6 | F | | | temperature_standar | | | | | d | | | + + + +---------+ | 2025-04-30 00:00 | weight_metric | 82.9 | kg | + + + +---------+ | 2025-04-30 00:00 | weight_standard | 182.762 | lb | + + + +---------+ | 2025-05-05 00:00 | BMI | 28.3 | kg/m2 | + + + +---------+ | 2025-05-05 00:00 | height_metric | 167.64 | cm | + + + +---------+ | 2025-05-05 00:00 | height_standard | 66 | in | + + + +---------+ | 2025-05-05 00:00 | weight_metric | 79.501 | kg | + + + +---------+ | 2025-05-05 00:00 | weight_standard | 175.268 | lb | + + + +---------+ | 2025-05-06 00:00 | BP_diastolic | 79 | mmHg | + + + +---------+ | 2025-05-06 00:00 | BP_systolic | 152 | mmHg | + + + +---------+ | 2025-05-06 00:00 | heart_rate | 74 | /min | + + + +---------+ | 2025-05-06 00:00 | o2_saturation | 100 | % | + + + +---------+ | 2025-05-06 00:00 | respiration_rate | 22 | /min | + + + +---------+ | 2025-05-06 00:00 | | 98 | F | | | temperature_standar | | | | | d | | | + + + +---------+ | 2025-05-24 00:00 | BMI | 28.3 | kg/m2 | + + + +---------+ | 2025-05-24 00:00 | BP_diastolic | 90 | mmHg | + + + +---------+ | 2025-05-24 00:00 | BP_systolic | 144 | mmHg | + + + +---------+ | 2025-05-24 00:00 | heart_rate | 78 | /min | + + + +---------+ | 2025-05-24 00:00 | height_metric | 167.64 | cm | + + + +---------+ | 2025-05-24 00:00 | height_standard | 66 | in | + + + +---------+ | 2025-05-24 00:00 | o2_saturation | 96 | % | + + + +---------+ | 2025-05-24 00:00 | respiration_rate | 20 | /min | + + + +---------+ | 2025-05-24 00:00 | | 98.9 | F | | | temperature_standar | | | | | d | | | + + + +---------+ | 2025-05-24 00:00 | weight_metric | 79.501 | kg | + + + +---------+ | 2025-05-24 00:00 | weight_standard | 175.268 | lb | + + + +---------+ | 2025-05-26 00:00 | BMI | 26.3 | kg/m2 | + + + +---------+ | 2025-05-26 00:00 | BP_diastolic | 00 | mmHg | + + + +---------+ | 2025-05-26 00:00 | BP_diastolic | 91 | mmHg | + + + +---------+ | 2025-05-26 00:00 | BP_systolic | 00 | mmHg | + + + +---------+ | 2025-05-26 00:00 | BP_systolic | 147 | mmHg | + + + +---------+ | 2025-05-26 00:00 | heart_rate | 00 | /min | + + + +---------+ | 2025-05-26 00:00 | heart_rate | 99 | /min | + + + +---------+ | 2025-05-26 00:00 | height_metric | 167.64 | cm | + + + +---------+ | 2025-05-26 00:00 | height_standard | 66 | in | + + + +---------+ | 2025-05-26 00:00 | o2_saturation | 00 | % | + + + +---------+ | 2025-05-26 00:00 | o2_saturation | 92 | % | + + + +---------+ | 2025-05-26 00:00 | respiration_rate | 00 | /min | + + + +---------+ | 2025-05-26 00:00 | respiration_rate | 22 | /min | + + + +---------+ | 2025-05-26 00:00 | | 0 | F | | | temperature_standar | | | | | d | | | + + + +---------+ | 2025-05-26 00:00 | | 97.8 | F | | | temperature_standar | | | | | d | | | + + + +---------+ | 2025-05-26 00:00 | weight_metric | 73.899 | kg | + + + +---------+ | 2025-05-26 00:00 | weight_standard | 162.918 | lb | + + + +---------+"
[2025-05-27] MEDS ORDERED: ALBUTEROL SULFATE 0.5% 2.5 MG/0.5 ML VIAL ONE ×2 (11:50→12:04)
[2025-05-27] MEDS ORDERED: ALBUTEROL/IPRATROPIUM 3 ML NEB ONE (11:50)
[2025-05-27] MEDS ORDERED: ALBUTEROL/IPRATROPIUM 3 ML NEB INH ONE (12:00)
[2025-05-27] MEDS ORDERED: ALBUTEROL SULFATE 0.5% 2.5 MG/0.5 ML VIAL INH ONE (12:00)
[2025-05-27 12:07] LABS: BASOPHILS 0.4 % (0.2-1.2); EOSINOPHILS 1.8 % (0.8-7.0); LYMPHOCYTES 20.2 % (21.8-53.1); MCH 27.7 PG (25.7-32.2); MCHC 32.2 g/dL (32.3-36.5); MCV 86.0 fL (79.0-92.2); MONOCYTES 10.4 % (5.3-12.2); NEUTROPHILS 67.0 % (34.0-67.9); RBC 5.70 M/uL (4.63-6.08)
[2025-05-27 12:34] LABS: ALT (SGPT) 31.0 U/L (14-59); AST (SGOT) 21.0 U/L (15-37); GLOMERULAR FILTRATION RATE,EST 122.0 mL/min (>60); PROTEIN, TOTAL 8.5 g/dL (6.4-8.2); UREA NITROGEN 14.0 mg/dL (7-18)
[2025-05-27] MEDS ORDERED: PREDNISONE20 MG PO (13:22)
[2025-05-27 13:41] VITALS: BP 160/86
== END 2025-05-27 13:30 | disposition home or self-care (01) ==
LOC: ED 11:45
PROVIDERS: Emergency Medicine
DX: J45.901 Unspecified asthma with (acute) exacerbation (principal); Z59.00 Homelessness unspecified; F17.200 Nicotine dependence, unspecified, uncomplicated
CPT/HCPCS: 36415; 71045; 80053; 83880; 85025; 94640; 96374; 99285-25; J2919